=== PATIENT | female | born 1955 | race Caucasian/White ===

== ENCOUNTER 2016-10-30 06:36 | Observation (INO) | payer BC ==
[2016-10-30] MEDS ORDERED: PEPCID 20 MG IV PREMIX* 20 MG/50 ML BAG IV ONE ×2 (07:04→07:14)
[2016-10-30] MEDS ORDERED: ASPIRIN 81 MG CHEWTAB PO ONE (07:05)
--- NOTE | 2016-10-30 07:05 | DR.CP ---
HPI - Time Seen Time seen: 07:00 - PCP Primary Care Physician: SANDRA SORIANO - HPI Comment HPI Comment: HISTORY BELOW. - Complaint Chief Complaint Doctor Comments: CHEST PAIN FEW DAYS. WORSE YESTERDAY. FELL 3 DAYS AGO AND HAVING HEADACHE, RIGHT NECK PAIN AND RIGHT SHOULDER PAIN. PAIN SHARP, PRECORDIAL RADIATing to left arm.. ASSOCIATED WITH WEAKNESS AND NAUSEA. NO FEVER. MILD URI SYMTOMS. Chief Complaint:: PATIENT FAMILY STATED THAT SHE HAS BEEN HAVING CHEST PAIN SINCE YESTERDAY. WOKE UP DURING THE NIGHT. - Reviewed Nurses Notes Review: Yes - Source History Provided: Patient - Mode of Arrival Mode of Arrival: Ambulatory - Timing Onset of Chief Complaint: 10/29/16 Came on: Suddenly - Duration Duration: Constant Duration: Days - Location Location of Chest Pain: Left, Chest Chest Pain Radiation Location: Left Arm - Context Onset: At rest, With light exertion, While Asleep Cardiac Risk Factors: Family History, HTN <ANIRUDH RIZZO - Last Filed: 10/30/16 08:53> PMH - PMH Past Medical History: Yes Past Medical History: COPD, Coronary Artery Disease, Depression, Diabetes, Hypertension, Kidney Stones, Sleep Apnea Past Surgical History: Yes Surgical History: , Cholecystectomy - Family History History of Family Medical Conditions: Yes Family Medical History: Diabetes Mellitus, Cancer, [place], Coronary Artery Disease, Heart Failure, Sudden Cardiac , Hypertension - Social History Does patient currently use any type of tobacco product: No Have you used tobacco products in the last 12 months: No Type of Tobacco Use: None Does any household member use tobacco: No Alcohol Use: None Do you use any recreational Drugs:: No Lives With: Family Lives Where: Home - infectious screening In the last 2 months have you had wt loss of >10#?: NO Have you had fever, night sweats or hemotysis?: No Have you traveled outside the country in the last 6 months?: No Isolation: Standard <ANIRUDH RIZZO - Last Filed: 10/30/16 08:53> ROS - Review of Systems Constitutional: Weakness, Fatigue Eyes: No Symptoms Reported ENTM: No Symptoms Reported Respiratoy: Non-Productive Cough, Short of Breath Cardiovascular: Chest Pain. negative: Edema Gastrointestinal/Abdominal: Nausea, Vomiting Neurological: Headache, Weakness, Dizziness Musculoskeletal: Muscle Pain, Right, Neck, Shoulder Integumentary: No Symptoms Reported Hematologic/Lymphatic: Easy Bruising Endocrine: No Symptoms Reported All Other Systems: Reviewed and Negative <JARED RIZZORADHA - Last Filed: 10/30/16 08:53> PE - General Limitations: No Limitations General Appearance: Alert - Head Head Exam: Normal Inspection - Eyes Eye exam: Normal Appearance - ENT ENT Exam: Normal External Ear Exam - Respiratory Respiratory Exam: Normal Lung Sounds Bilat Respiratory Exam: Bilateral Rhonchi, Upper Rhonchi, Lower Rhonchi - Cardiovascular Cardiovascular Exam: Regular Rate, Normal Rhythm, Normal Heart Sounds Pulse: Normal Edema: Normal - Abdominal Exam Abdominal Exam: Normal Bowel Sounds, Soft. negative: Tenderness - Extremities Extremities Exam: Normal Inspection - Back Back Exam: Vertebral Tenderness (right neck tenderness) - Neurologic Neurological Exam: Alert, Oriented X3 - Psychiatric Psychiatric Exam: Anxious - Skin Skin Exam: Normal Color <JARED RIZZORADHA - Last Filed: 10/30/16 08:53> MDM - Additional Information Additional Information Obtained From: Family - Differential Diagnosis Differential Diagnosis: Chest Wall Pain, CHF, Costochondritis, Esophageal Reflux /Spasm, Gastritis, Myocardial Infarction, Pericarditis, Pancreatitis, Pneumonia , Pneumothorax, Pulmonary Embolus <JARED RIZZORADHA - Last Filed: 10/30/16 08:53> Course - Treatment Treatment: SEE ORDERS - Education/Counseling Education/Counseling: Patient, Family, Education Educated On: Treatment, Diagnosis <JARED RIZZORADHA - Last Filed: 10/30/16 08:53> - Consultation Called: 09:00 (Dr Sheridan obs) <DIVYA JACKSON - Last Filed: 10/30/16 09:20> ROR - Labs Reviewed Result Diagrams: 10/30/16 07:10 10/30/16 07:10 - XRAY XRAY Findings: REPORT DISCUSS WITH PATIENT AND FAMILY - EKG Rhythm: NSR (EKG NOTED) <ANIRUDH RIZZO - Last Filed: 10/30/16 08:53> - Labs Reviewed Result Diagrams: 10/30/16 07:10 10/30/16 07:10 <DIVYA JACKSON - Last Filed: 10/30/16 09:20> - Labs Reviewed Laboratory: WBC 7.0 X10^3/uL (3.6-10.0) 10/30/16 07:10 RBC 3.61 X10^6/uL (3.5-5.4) 10/30/16 07:10 Hgb 11.0 g/dL (12.0-16.0) L 10/30/16 07:10 Hct 33.0 % (36.0-47.0) L 10/30/16 07:10 MCV 91.4 fL (80.0-100.0) 10/30/16 07:10 MCH 30.4 pg (27.0-34.0) 10/30/16 07:10 MCHC 33.2 g/dL (33.0-35.0) 10/30/16 07:10 RDW 12.9 % (11.6-16.5) 10/30/16 07:10 Plt Count 249 X10^3/uL (150.0-450.0) 10/30/16 07:10 MPV 8.1 fL (7.4-11.0) 10/30/16 07:10 Neut % 44.9 % (42.0-75.0) 10/30/16 07:10 Lymph % 43.3 % (21.0-51.0) 10/30/16 07:10 [place] % 9.7 % (0.0-13.0) 10/30/16 07:10 Eos % 1.6 % (0.9-2.9) 10/30/16 07:10 Baso % 0.5 % (0.2-1.0) 10/30/16 07:10 Neut # 3.2 x10^3/uL (2.2-4.8) 10/30/16 07:10 Lymph # 3.0 X10^3/uL (1.3-2.9) H 10/30/16 07:10 [place] # 0.7 x10^3/uL (0.3-0.8) 10/30/16 07:10 Eos # 0.1 x10^3/uL (0.0-0.2) 10/30/16 07:10 Baso # 0.0 X10^3/uL (0.0-0.1) 10/30/16 07:10 Absolute Nucleated RBC 0.0 /100WBC 10/30/16 07:10 INR Target Range - 10/30/16 07:10 INR 0.99 (0.8-1.3) 10/30/16 07:10 PTT 25.4 SECONDS (22.9-36.5) 10/30/16 07:10 PTT Comment - 10/30/16 07:10 D-Dimer 410 ng/mL (0-400) H* 10/30/16 07:10 Sodium 140 mmol/L (136-145) 10/30/16 07:10 Corrected Sodium TNP 10/30/16 07:10 Potassium 4.1 mmol/L (3.5-5.1) 10/30/16 07:10 Chloride 101 mmol/L (98-107) 10/30/16 07:10 Carbon Dioxide 29.4 mmol/L (21-32) 10/30/16 07:10 BUN 28 mg/dL (7-18) H 10/30/16 07:10 Creatinine 1.50 mg/dL (0.55-1.02) H 10/30/16 07:10 Est GFR (MDRD) Af Amer 45 (>60) L 10/30/16 07:10 Est GFR (MDRD) Non-Af 37 (>60) L 10/30/16 07:10 Glucose 97 mg/dL (65-99) 10/30/16 07:10 Calcium 9.1 mg/dL (8.5-10.1) 10/30/16 07:10 Corrected Calcium 9.7 mg/dL (8.5-10.1) 10/30/16 07:10 Magnesium 1.0 mg/dL (1.7-2.9) L 10/30/16 07:10 Total Bilirubin 0.30 mg/dL (0.2-1.0) 10/30/16 07:10 AST 14 Units/L (15-37) L 10/30/16 07:10 ALT 26 Units/L (12-78) 10/30/16 07:10 Alkaline Phosphatase 65 Units/L (46-116) 10/30/16 07:10 Creatine Kinase 55 Units/L (26-192) 10/30/16 07:10 CK-MB (CK-2) < 1.0 ng/mL (0-4.0) 10/30/16 07:10 CK/CKMB % Calc 1.8 % (<4) 10/30/16 07:10 Troponin I < 0.02 ng/mL (0-1.5) 10/30/16 07:10 Total Protein 7.2 g/dL (6.4-8.2) 10/30/16 07:10 Albumin 3.3 g/dL (3.4-5.0) L 10/30/16 07:10 Globulin 3.9 g/dL (2.5-4.5) 10/30/16 07:10 Albumin/Globulin Ratio 0.8 Ratio (1.1-2.1) L 10/30/16 07:10 (DIVYA JACKSON) <ANIRUDH RIZZO - Last Filed: 10/30/16 08:53> <DIVYA JACKSON - Last Filed: 10/30/16 09:20> - Diagnosis Discharge Problem: Chest pain Qualifiers: Chest pain type: chest pain due to myocardial ischemia Ischemic chest pain type : unspecified angina pectoris type Qualified Code(s): I20.9 - Angina pectoris, unspecified - Discharge Plan Condition: Stable - Follow ups/Referrals Follow ups/Referrals: AUGUSTA SORIANO [Primary Care Provider] - 3 days - Instructions
[2016-10-30] MEDS ORDERED: ASPIRIN 81 MG CHEWTAB ONE (07:14)
[2016-10-30] MEDS ORDERED: NS 250 ML IV 250 ML IV ONE (07:15)
[2016-10-30] MEDS: NITROSTAT SL PRN ×3 (07:20→12:06)
[2016-10-30 07:21] LABS: BASOPHILS % (AUTO) 0.5 % (0.2-1.0); EOSINOPHILS # (AUTO) 0.1 x10^3/uL (0.0-0.2); EOSINOPHILS % (AUTO) 1.6 % (0.9-2.9); LYMPHOCYTES % (AUTO) 43.3 % (21.0-51.0); MEAN CORPUSCULAR HEMOGLOBIN 30.4 pg (27.0-34.0); MEAN CORPUSCULAR HGB CONC 33.2 g/dL (33.0-35.0); MEAN CORPUSCULAR VOLUME 91.4 fL (80.0-100.0); MEAN PLATELET VOLUME 8.1 fL (7.4-11.0); MONOCYTES # (AUTO) 0.7 x10^3/uL (0.3-0.8); MONOCYTES % (AUTO) 9.7 % (0.0-13.0); NEUTROPHILS # (AUTO) 3.2 x10^3/uL (2.2-4.8); NEUTROPHILS % (AUTO) 44.9 % (42.0-75.0); PLATELET COUNT 249 X10^3/uL (150.0-450.0); RED BLOOD COUNT 3.61 X10^6/uL (3.5-5.4); RED CELL DISTRIBUTION WIDTH 12.9 % (11.6-16.5)
[2016-10-30 07:38] LABS: BLOOD UREA NITROGEN 28 mg/dL (7-18); CALCIUM 9.1 mg/dL (8.5-10.1); CARBON DIOXIDE 29.4 mmol/L (21-32); CHLORIDE 101 mmol/L (98-107); GLUCOSE 97 mg/dL (65-99); SODIUM 140 mmol/L (136-145); TROPONIN I < 0.02 ng/mL (0-1.5); eGFR BLACK RACES 45 (>60); eGFR NON BLACK RACES 37 (>60)
[2016-10-30 07:42] LABS: ALANINE AMINOTRANSFERASE 26 Units/L (12-78); ALBUMIN 3.3 g/dL (3.4-5.0); ALKALINE PHOSPHATASE 65 Units/L (46-116); ASPARTATE AMINO TRANSFERASE 14 Units/L (15-37); CKMB % 1.8 % (<4); COR CA(FOR HYPOALB) 9.7 mg/dL (8.5-10.1); CREATINE KINASE 55 Units/L (26-192); CREATINE KINASE MB < 1.0 ng/mL (0-4.0); TOTAL PROTEIN 7.2 g/dL (6.4-8.2)
--- NOTE | 2016-10-30 07:45 | CT ---
HISTORY: Head injury, dizziness Study: CT brain without contrast Comparison: September 13, 2016 Technique: Multiple axial images of the brain were obtained from the skull base to the vertex without administr ation of IV contrast. Coronal and sagittal reformats were performed. Dose reduction procedures were used with MA/kv adjusted for body size. Findings: No acute intraparenchymal hemorrhage or mass can be identified. No extra-axial fluid collections ar e seen. No alteration in the attenuation of the brain parenchyma can be identified to suggest acute or subacute ischemic change. The ventricular system is symmetric and nondilated. The extracranial structures are grossly unremarkable. the calvarium is intact. IMPRESSION: No significant intracranial abnormality identified Reported By:
--- NOTE | 2016-10-30 07:46 | RAD ---
HISTORY: Injury, fall, right shoulder pain Study: Right shoulder three view Comparison: None Findings: The appearance of the clavicle and AC joint are unremarkable. The glenohumeral articulation is norm al in its appearance. No acute cortical disruption or dislocation can be identified. The visualize d portions of the scapula are unremarkable. In addition, the visualized portions of the right hemit horax appear normal. IMPRESSION: 1. Negative exam. Reported By:
--- NOTE | 2016-10-30 07:47 | RAD ---
HISTORY: Chest pain. Patient fell 3 days ago, right-sided body pain Study: Single-view chest Comparison: September 13, 2016 Findings: Trachea is midline. The heart size is normal. Lungs and pleural spaces are clear. Osseous structures are intact. IMPRESSION: No acute cardiopulmonary disease. Reported By:
--- NOTE | 2016-10-30 07:48 | RAD ---
HISTORY: Injury, fall, neck pain Study: Cervical spine five view Comparison: None Findings: The prevertebral soft tissues are normal. The alignment is normal. The vertebral bodies are of avera ge height. The disc spaces are preserved. The posterior elements are intact. The neural foramina are patent. The joints are normal. IMPRESSION: No significant abnormality Reported By:
[2016-10-30] MEDS ORDERED: ZOFRAN INJ 4 MG VIAL IVP PRN (09:28)
[2016-10-30 10:24] LABS: CKMB % 1.9 % (<4); CREATINE KINASE 53 Units/L (26-192); CREATINE KINASE MB < 1.0 ng/mL (0-4.0); TROPONIN I < 0.02 ng/mL (0-1.5)
[2016-10-30 10:57] VITALS: BMI 42.5
[2016-10-30 13:29] LABS: CKMB % 1.4 % (<4); CREATINE KINASE 70 Units/L (26-192); TROPONIN I < 0.02 ng/mL (0-1.5)
[2016-10-30] MEDS: MORPHINE SULFATE INJ 2 MG IVP PRN ×2 (13:46→20:32)
--- NOTE | 2016-10-30 14:02 | DR.H&P ---
H&P - History & Physical for Day of: H&P Date: 10/30/16 - Chief Complaint Chief Complaint: cp - Allergies Allergies/Adverse Reactions: Allergies Allergy/AdvReac Type Severity Reaction Status Date / Time Codeine Allergy Unknown Verified 09/13/16 14:34 Iodine Allergy Unknown Verified 09/13/16 14:34 Tetanus Toxoids Allergy Unknown Verified 09/13/16 14:34 [employer] OIL Allergy Uncoded 09/13/16 14:34 - History of Present Illness History of Present Illness: PT WAS ER ADMISSION AFTER PRESENTING WITH CO CHEST PAIN FOR 5 DAYS, WORSE TODAY. PT STATES SHE HAS TAKEN NITROGLYCERINE TABS WITHOUT RELIEF. PT HAD STRONG FAMILY HX CAD. PT HAS HAD HEART CATH IN PAST, ALMOST 7 YEARS AGO. PT STATES SHE SEEN DR [place] AT THAT TIME. PT STATES SHE HAS HX "BLOOD CLOT'S, DM, HTN OA, COPD - Past Medical History Past Medical History: COPD, Coronary Artery Disease, Depression, Diabetes, Hypertension, Kidney Stones, Sleep Apnea Additional Medical History: Fibromyalgia, Degenerative Disc Disease - Past Surgical History Surgical History: , Cholecystectomy - Family History Family Medical History: Diabetes Mellitus, Cancer, [place], Coronary Artery Disease, Heart Failure, Sudden Cardiac , Hypertension - Social History Does patient currently use any type of tobacco product: No Have you used tobacco products in the last 12 months: No Type of Tobacco Use: None Does any household member use tobacco: No Alcohol Use: None - Review of Systems Constitutional: Chills, Weakness Eyes: No Symptoms Reported ENT: No Symptoms Reported Respiratory: No Symptoms Reported Cardiovascular: Chest Pain Gastrointestinal: Nausea Genitourinary: No Symptoms Reported Musculoskeletal: No Symptoms Reported Skin: No Symptoms Reported Neurological: No Symptoms Reported - Physical Exam Vital Signs: Temperature 97.7 F Pulse Rate [Left Brachial] 74 Respiratory Rate 20 Blood Pressure [Left Arm] 137/76 O2 Sat by Pulse Oximetry 100 Oriented: Normal Eyes: Normal Ear: Normal Nose: Normal Throat: Normal Respiratory: RLL Exp. Wheeze, LLL Exp. Wheeze Cardiovascular: Normal : Normal Auscultation: Bowel Sounds: Normal Palpation: Normal Tenderness: Normal Skin: Normal Musculoskeletal: Normal Psychiatric: Normal Speech Pattern: Clear, Appropriate - Assessment/Plan (1) Chest pain Qualifiers: Chest pain type: chest pain due to myocardial ischemia Ischemic chest pain type: unspecified angina pectoris type Qualified Code(s): I20.9 - Angina pectoris, unspecified Status: Acute Plan: ADMIT, HRIS SPECIALIST SERIAL CE'S. SERIAL EKG'S. BP AND LIPID CONTROL (2) Depression Qualifiers: Depression Type: D Major depression recurrence: M Active/Remission status : A Major depression episode severity: M Psychotic features: P Trimester: T Status: Chronic Plan: CONTINUE HOME MEDS (3) Hyperlipidemia Qualifiers: Hyperlipidemia type: Mixed hyperlipidemia Qualified Code(s): E78.2 - Mixed hyperlipidemia Status: Chronic Plan: RESUME HOME MEDS, FLP Q AM (4) Hypertension Qualifiers: Hypertension type: essential hypertension Qualified Code(s): I10 - Essential (primary) hypertension Status: Chronic (5) Insulin dependent diabetes mellitus Status: Chronic Plan: SSI (6) SOB (shortness of breath) Status: Acute Plan: [place], [place] CP AND SOB. CARDIAC WORK UP, VQ LUNG SCAN Q AM
[2016-10-30 14:41] LABS: ABG BASE EXCESS 4.6 mmol/L (-2.0-2.0)
[2016-10-30 14:42] LABS: ABG HCO3 30.4 mmol/L (22-26)
[2016-10-30 14:43] LABS: ABG ALLEN TEST POS
[2016-10-30 19:09] LABS: CKMB % 1.8 % (<4); CREATINE KINASE 56 Units/L (26-192); TROPONIN I < 0.02 ng/mL (0-1.5)
[2016-10-31] MEDS ORDERED: AMBIEN PO PRN (00:33)
[2016-10-31 05:36] LABS: ALBUMIN 3.2 g/dL (3.4-5.0); CALCIUM 9.5 mg/dL (8.5-10.1); CARBON DIOXIDE 31.4 mmol/L (21-32); COR CA(FOR HYPOALB) 10.1 mg/dL (8.5-10.1); CREATININE 1.39 mg/dL (0.55-1.02); TOTAL PROTEIN 7.1 g/dL (6.4-8.2)
[2016-10-31 05:42] LABS: BASOPHILS % (AUTO) 0.5 % (0.2-1.0); EOSINOPHILS # (AUTO) 0.1 x10^3/uL (0.0-0.2); EOSINOPHILS % (AUTO) 1.6 % (0.9-2.9); HEMATOCRIT 34.2 % (36.0-47.0); HEMOGLOBIN 11.2 g/dL (12.0-16.0); LYMPHOCYTES # (AUTO) 1.8 X10^3/uL (1.3-2.9); LYMPHOCYTES % (AUTO) 31.4 % (21.0-51.0); MEAN CORPUSCULAR HEMOGLOBIN 30.3 pg (27.0-34.0); MEAN CORPUSCULAR HGB CONC 32.8 g/dL (33.0-35.0); MEAN CORPUSCULAR VOLUME 92.2 fL (80.0-100.0); MEAN PLATELET VOLUME 8.5 fL (7.4-11.0); MONOCYTES # (AUTO) 0.5 x10^3/uL (0.3-0.8); MONOCYTES % (AUTO) 8.3 % (0.0-13.0); NEUTROPHILS # (AUTO) 3.3 x10^3/uL (2.2-4.8); NEUTROPHILS % (AUTO) 58.2 % (42.0-75.0); PLATELET COUNT 251 X10^3/uL (150.0-450.0); RED BLOOD COUNT 3.71 X10^6/uL (3.5-5.4); WHITE BLOOD COUNT 5.7 X10^3/uL (3.6-10.0)
[2016-10-31] MEDS: MORPHINE SULFATE INJ 2 MG IVP PRN (06:00)
--- NOTE | 2016-10-31 12:33 | NM ---
HISTORY: Chest pain Study: Ventilation-perfusion lung scan Comparison: July 05, 2015 Technique: Ventilation scan was carried out using 25.6 millicuries technetium 90 PA aerosol. Perfusi on scan was carried out using intravenous injection of 5.4 millicuries technetium 99 MAA. Findings: Ventilation scan demonstrated symmetric ventilation without significant ventilation defects. Perfusi on scan demonstrated symmetric profusion without significant perfusion defects. The probability of a cute pulmonary thromboembolic disease is low. IMPRESSION: Low probability acute pulmonary thromboembolic disease Reported By:
[2016-10-31 12:48] VITALS: BP 109/54
== END 2016-10-31 15:45 | disposition home or self-care (01) ==
LOC: ER 06:36 → MED/SURG 09:22
PROVIDERS: ADMIT Internal Medicine; ATTEND Internal Medicine
DX: R07.89 Other chest pain (principal); R51 Headache; D64.89 Other specified anemias; R94.4 Abnormal results of kidney function studies; E11.65 Type 2 diabetes mellitus with hyperglycemia; M54.2 Cervicalgia; M25.511 Pain in right shoulder; R07.2 Precordial pain; J44.9 Chronic obstructive pulmonary disease, unspecified; I25.10 Atherosclerotic heart disease of native coronary artery without angina pectoris; F32.89 Other specified depressive episodes; I10 Essential (primary) hypertension; I20.8 Other forms of angina pectoris; W18.39XA Other fall on same level, initial encounter; E78.2 Mixed hyperlipidemia; Z79.4 Long term (current) use of insulin; R06.02 Shortness of breath; Z79.01 Long term (current) use of anticoagulants
CPT/HCPCS: 36415; 36600; 70450; 71010; 72050; 73030; 78582; 80053; 82550; 82553; 82803; 83735; 84484; 85025; 85378; 85610; 85730; 93005; 93010; 94760; 96365; 96374; 99284; A4222; S0028; G0378; J2270

== ENCOUNTER → 2016-11-01 | Outpatient (CLI) | payer BC ==
[2016-10-31 12:48] VITALS: BP 109/54
--- NOTE | 2016-11-01 23:01 | RAD ---
FOOT RADIOGRAPHS CLINICAL HISTORY: 61-year-old female with history of left toe fracture. COMPARISON: Radiographs the left foot October 11, 2016.. FINDINGS: 3 views of the left foot were obtained. These demonstrate unchanged appearance of fracture s through the base of the 4th proximal phalanx and the mid shaft of the 5th proximal phalanx. The L isfranc interval is maintained. No new fracture. There is no erosion, aggressive bone lesion or a bnormal periosteal reaction. There is no soft tissue calcification or gas. The mineralization is ma intained. IMPRESSION: Unchanged appearance of fractures of the 4th and 5th digits of the left foot without new fracture. Reported By:
== END ==
LOC: RAD 17:06
PROVIDERS: ATTEND Specialist
DX: S92.512D Displaced fracture of proximal phalanx of left lesser toe(s), subsequent encounter for fracture with routine healing (principal); X58.XXXD Exposure to other specified factors, subsequent encounter
CPT/HCPCS: 73630

== ENCOUNTER → 2016-11-29 | Outpatient (CLI) | payer BC ==
[2016-10-31 12:48] VITALS: BP 109/54
--- NOTE | 2016-11-30 06:49 | RAD ---
Three views of the left foot Indication: Followup fracture Comparison: 11/01/2016 Findings: There is no change in appearance of oblique oriented fracture of the proximal phalanx of t he little toe again demonstrating small amount of external callus formation without bridging interna l callus formation. There is also no change in proximally displaced fracture within the medial aspec t of the 4th toe proximal phalangeal base. The remaining left foot demonstrates no new osseous or so ft tissue abnormality. Enthesopathic change at the distal Achilles tendon which is displaced from th e calcaneus consistent with a subacute or remote tear of the Achilles tendon. Mild enthesopathic rusty nge of the plantar fascia. Impression: No radiographic change or interval healing identified within the 4th and 5th proximal ph alangeal fractures. Reported By:
== END ==
LOC: RAD 14:49
PROVIDERS: ATTEND Specialist
DX: S92.512D Displaced fracture of proximal phalanx of left lesser toe(s), subsequent encounter for fracture with routine healing (principal); X58.XXXD Exposure to other specified factors, subsequent encounter
CPT/HCPCS: 73630

== ENCOUNTER 2017-01-28 16:58 | Emergency (ER) | payer BC ==
[2017-01-28 17:11] VITALS: BP 112/75; BMI 42.7
--- NOTE | 2017-01-28 18:11 | DR.GENAD ---
HPI - PCP Primary Care Physician: SANDRA SORIANO CURB HOP - HPI Comment HPI Comment: PAIN GETTING WORSE. NO DYSURIA. CHEST PAIN LEFT CHEST.NO RADIATION TO CHEST PAIN. NO FEVER. PATIENT IS WEAK. - Complaint/Symptoms Chief Complaint Doctors Comments: CHEST PAIN AND FLANK PAIN AND ABDOMINAL PAIN TIMES ONE DAY. Chief Complaint:: PATIENT STATED THAT SHE HAS BEEN HAVING CHEST PAIN AND BACK PAIN. PATIENT STATED THAT YESTERDAY. - Nurses notes reviewed Nurses Notes Review: Yes - Source History Provided: Patient - Mode of Arrival Mode of Arrival: Ambulatory - Timing Onset of Chief Complaint: 01/27/17 Came on: Suddenly - Duration Duration: Constant Duration: Days PMH - PMH Past Medical History: Yes Past Medical History: COPD, Coronary Artery Disease, Depression, Diabetes, Hypertension, Kidney Stones, Sleep Apnea Past Surgical History: Yes Surgical History: , Cholecystectomy, Lithotripsy, Other - Family History History of Family Medical Conditions: Yes Family Medical History: Diabetes Mellitus, Cancer, [place], Hypertension - Social History Does patient currently use any type of tobacco product: No Have you used tobacco products in the last 12 months: No Type of Tobacco Use: None Does any household member use tobacco: No Alcohol Use: None Do you use any recreational Drugs:: No Lives With: Family Lives Where: Home - infectious screening In the last 2 months have you had wt loss of >10#?: NO Have you had fever, night sweats or hemotysis?: No Have you traveled outside the country in the last 6 months?: No Isolation: Standard ROS - Review of Systems Constitutional: Weakness, Fatigue. negative: Chills, Fever Eyes: No Symptoms Reported. negative: Eye Pain, Discharge ENTM: No Symptoms Reported. negative: Ear Pain, Nose Discharge, Nose Congestion , Throat Pain Respiratoy: Non-Productive Cough, Short of Breath. negative: Wheezing, Hemoptysis Cardiovascular: Chest Pain, Palpitations. negative: Edema Gastrointestinal/Abdominal: Abdominal Pain, Nausea. negative: Constipation, Diarrhea, Vomiting Genitourinary: No Symptoms Reported. negative: Dysuria, Frequency, Hematuria Neurological: Headache, Weakness. negative: Dizziness Musculoskeletal: Muscle Pain Integumentary: No Symptoms Reported Hematologic/Lymphatic: Easy Bleeding, Easy Bruising Endocrine: No Symptoms Reported All Other Systems: Reviewed and Negative PE - Vital Signs Vitals: Temperature 98.7 F Pulse Rate 112 Respiratory Rate 20 Blood Pressure [Right Arm] 130/77 Blood Pressure [Left Arm] 109/54 Blood Pressure 112/75 O2 Sat by Pulse Oximetry 98 - General Limitations: No Limitations General Appearance: Alert - Head Head Exam: Normal Inspection - Eyes Eye exam: Normal Appearance - ENT ENT Exam: Normal External Ear Exam External Ear Exam: Normal External Inspection TM/Canal Exam: Bilateral Normal Nose Exam: Normal Nose Exam Mouth Exam: Normal Inspection Throat Exam: Normal Inspection - Neck Neck Exam: Trachea Midline - Chest Chest Inspection: Symmetric Chest Wall Rise - Respiratory Respiratory Exam: Normal Lung Sounds Bilat Respiratory Exam: Bilateral Clear to Auscultation - Cardiovascular Cardiovascular Exam: Normal Rhythm, Tachycardia, Normal Heart Sounds - Abdominal Exam Abdominal Exam: Normal Bowel Sounds, Soft, Tenderness Abdominal Tenderness: Diffuse, Moderate - Extremities Extremities Exam: Normal Inspection - Back Back Exam: Paraspinal Tenderness - Neurologic Neurological Exam: Alert, Oriented X3 - Psychiatric Psychiatric Exam: Normal Affect, Normal Mood - Skin Skin Exam: Normal Color MDM - Additional Information Additional Information Obtained From: Family - Differential Diagnosis Differential Diagnosis: CHEST PAIN, FLANK PAIN, ABDOMINAL PAIN, UTI, KIDNEY STONE Course - Treatment Treatment: SEE ORDERS. IM MED FOR PAIN IN ED. - Reevaluation 1st: Improved - Education/Counseling Education/Counseling: Patient, Family, Education Educated On: Treatment, Diagnosis, Needs for Follow Up ROR - Labs Reviewed Laboratory Results Reviewed?: Yes Result Diagrams: 01/28/17 18:34 01/28/17 18:34 Laboratory: WBC 8.6 X10^3/uL (3.6-10.0) 01/28/17 18:34 RBC 3.83 X10^6/uL (3.5-5.4) 01/28/17 18:34 Hgb 11.6 g/dL (12.0-16.0) L 01/28/17 18:34 Hct 35.1 % (36.0-47.0) L 01/28/17 18:34 MCV 91.6 fL (80.0-100.0) 01/28/17 18:34 MCH 30.2 pg (27.0-34.0) 01/28/17 18:34 MCHC 32.9 g/dL (33.0-35.0) L 01/28/17 18:34 RDW 13.9 % (11.6-16.5) 01/28/17 18:34 Plt Count 309 X10^3/uL (150.0-450.0) 01/28/17 18:34 MPV 8.5 fL (7.4-11.0) 01/28/17 18:34 Neut % 57.2 % (42.0-75.0) 01/28/17 18:34 Lymph % 33.8 % (21.0-51.0) 01/28/17 18:34 [place] % 7.3 % (0.0-13.0) 01/28/17 18:34 Eos % 1.0 % (0.9-2.9) 01/28/17 18:34 Baso % 0.7 % (0.2-1.0) 01/28/17 18:34 Neut # 4.9 x10^3/uL (2.2-4.8) H 01/28/17 18:34 Lymph # 2.9 X10^3/uL (1.3-2.9) 01/28/17 18:34 [place] # 0.6 x10^3/uL (0.3-0.8) 01/28/17 18:34 Eos # 0.1 x10^3/uL (0.0-0.2) 01/28/17 18:34 Baso # 0.1 X10^3/uL (0.0-0.1) 01/28/17 18:34 Absolute Nucleated RBC 0.0 /100WBC 01/28/17 18:34 Sodium 136 mmol/L (136-145) 01/28/17 18:34 Corrected Sodium 137 mmol/L (136-145) 01/28/17 18:34 Potassium 4.6 mmol/L (3.5-5.1) 01/28/17 18:34 Chloride 99 mmol/L (98-107) 01/28/17 18:34 Carbon Dioxide 29.2 mmol/L (21-32) 01/28/17 18:34 BUN 29 mg/dL (7-18) H 01/28/17 18:34 Creatinine 1.95 mg/dL (0.55-1.02) H 01/28/17 18:34 Est GFR (MDRD) Af Amer 33 (>60) L 01/28/17 18:34 Est GFR (MDRD) Non-Af 28 (>60) L 01/28/17 18:34 Glucose 158 mg/dL (65-99) H 01/28/17 18:34 Calcium 9.2 mg/dL (8.5-10.1) 01/28/17 18:34 Corrected Calcium TNP 01/28/17 18:34 Total Bilirubin 0.30 mg/dL (0.2-1.0) 01/28/17 18:34 AST 13 Units/L (15-37) L 01/28/17 18:34 ALT 23 Units/L (12-78) 01/28/17 18:34 Alkaline Phosphatase 70 Units/L (46-116) 01/28/17 18:34 Creatine Kinase 56 Units/L (26-192) 01/28/17 18:34 CK-MB (CK-2) < 1.0 ng/mL (0-4.0) 01/28/17 18:34 CK/CKMB % Calc 1.8 % (<4) 01/28/17 18:34 Troponin I < 0.02 ng/mL (0-1.5) 01/28/17 18:34 Total Protein 7.5 g/dL (6.4-8.2) 01/28/17 18:34 Albumin 3.6 g/dL (3.4-5.0) 01/28/17 18:34 Globulin 3.9 g/dL (2.5-4.5) 01/28/17 18:34 Albumin/Globulin Ratio 0.9 Ratio (1.1-2.1) L 01/28/17 18:34 Specimen Type Clean catch urine 01/28/17 18:17 Urine Color Yellow (YELLOW) 01/28/17 18:17 Urine Appearance Hazy (CLEAR) 01/28/17 18:17 Urine pH 5.0 (5.0 - 8.0) 01/28/17 18:17 Ur Specific [place] 1.020 (1.000-1.030) 01/28/17 18:17 Urine Protein 2+ (NEGATIVE) 01/28/17 18:17 Urine Glucose (UA) 1+ (NEGATIVE) 01/28/17 18:17 Urine Ketones 1+ (NEGATIVE) 01/28/17 18:17 Urine Occult Blood 1+ (NEGATIVE) 01/28/17 18:17 Urine Nitrite Negative (NEGATIVE) 01/28/17 18:17 Urine Bilirubin 2+ (NEGATIVE) 01/28/17 18:17 Urine Urobilinogen 1+ (NORMAL) 01/28/17 18:17 Ur Leukocyte Esterase 2+ (NEGATIVE) 01/28/17 18:17 Urine RBC 3-5 /HPF (NEGATIVE) 01/28/17 18:17 Urine WBC 3-5 /HPF (NEGATIVE) 01/28/17 18:17 Ur Squamous Epith Cells Moderate /HPF (NEGATIVE) 01/28/17 18:17 Urine Bacteria 3+ /HPF (NEGATIVE) 01/28/17 18:17 Ur Culture Indicated? Yes/culture set up 01/28/17 18:17 - XRAY XRAY Interpreted by: Radiologist XRAY Findings: REPORT DISCUSS WITH PATIENT. - EKG Rhythm: ST (RATE 100. EKG NOTED) - Diagnosis Discharge Problem: Kidney stone UTI (urinary tract infection) Qualifiers: Urinary tract infection type: acute cystitis Hematuria presence: without hematuria Qualified Code(s): N30.00 - Acute cystitis without hematuria Chest pain Qualifiers: Chest pain type: precordial pain Qualified Code(s): R07.2 - Precordial pain Abdominal pain Qualifiers: Abdominal location: generalized Qualified Code(s): R10.84 - Generalized abdominal pain - Discharge Plan Disposition: 01 HOME, SELF-CARE Condition: Stable Prescriptions: Ciprofloxacin HCl [CIPRO 500 MG TAB *] 500 mg PO Q12H #20 tab - Follow ups/Referrals Follow ups/Referrals: AUGUSTA SORIANO [Primary Care Provider] - 3 days - Instructions Instructions: Urinary Tract Infection, Kidney Stones, [id number], Chest Pain Observation Additional Instructions: RETURN TO ED IF WORSE.
[2017-01-28 18:25] LABS: BILIRUBIN,URINE 2+ (NEGATIVE); BLOOD/HEMOGLOBIN,URINE 1+ (NEGATIVE); GLUCOSE, URINE 1+ (NEGATIVE); KETONES,URINE 1+ (NEGATIVE); LEUKOCYTE ESTERASE ,URINE 2+ (NEGATIVE); NITRITES,URINE NEGATIVE (NEGATIVE); PROTEIN,URINE 2+ (NEGATIVE); UROBILINOGEN,URINE 1+ (NORMAL)
[2017-01-28 18:43] LABS: APPEARANCE,URINE HAZY (CLEAR); BACTERIA,URINE 3+ /HPF (NEGATIVE); COLOR,URINE YELLOW (YELLOW); SQUAMOUS EPITHELIAL CELL,UR MODERATE /HPF (NEGATIVE)
[2017-01-28 18:50] LABS: BASOPHILS # (AUTO) 0.1 X10^3/uL (0.0-0.1); BASOPHILS % (AUTO) 0.7 % (0.2-1.0); EOSINOPHILS # (AUTO) 0.1 x10^3/uL (0.0-0.2); HEMATOCRIT 35.1 % (36.0-47.0); HEMOGLOBIN 11.6 g/dL (12.0-16.0); LYMPHOCYTES # (AUTO) 2.9 X10^3/uL (1.3-2.9); LYMPHOCYTES % (AUTO) 33.8 % (21.0-51.0); MEAN CORPUSCULAR HEMOGLOBIN 30.2 pg (27.0-34.0); MEAN CORPUSCULAR HGB CONC 32.9 g/dL (33.0-35.0); MEAN CORPUSCULAR VOLUME 91.6 fL (80.0-100.0); MEAN PLATELET VOLUME 8.5 fL (7.4-11.0); MONOCYTES # (AUTO) 0.6 x10^3/uL (0.3-0.8); MONOCYTES % (AUTO) 7.3 % (0.0-13.0); NEUTROPHILS # (AUTO) 4.9 x10^3/uL (2.2-4.8); NEUTROPHILS % (AUTO) 57.2 % (42.0-75.0); PLATELET COUNT 309 X10^3/uL (150.0-450.0); RED BLOOD COUNT 3.83 X10^6/uL (3.5-5.4); RED CELL DISTRIBUTION WIDTH 13.9 % (11.6-16.5); WHITE BLOOD COUNT 8.6 X10^3/uL (3.6-10.0)
[2017-01-28 19:00] LABS: BLOOD UREA NITROGEN 29 mg/dL (7-18); CALCIUM 9.2 mg/dL (8.5-10.1); CARBON DIOXIDE 29.2 mmol/L (21-32); CHLORIDE 99 mmol/L (98-107); COR NA(FOR HYPERGLY) 137 mmol/L (136-145); CREATININE 1.95 mg/dL (0.55-1.02); GLUCOSE 158 mg/dL (65-99); SODIUM 136 mmol/L (136-145); TROPONIN I < 0.02 ng/mL (0-1.5); eGFR BLACK RACES 33 (>60); eGFR NON BLACK RACES 28 (>60)
[2017-01-28 19:04] LABS: ALANINE AMINOTRANSFERASE 23 Units/L (12-78); ALBUMIN 3.6 g/dL (3.4-5.0); ALKALINE PHOSPHATASE 70 Units/L (46-116); ASPARTATE AMINO TRANSFERASE 13 Units/L (15-37); CKMB % 1.8 % (<4); CREATINE KINASE 56 Units/L (26-192); CREATINE KINASE MB < 1.0 ng/mL (0-4.0); TOTAL PROTEIN 7.5 g/dL (6.4-8.2)
[2017-01-28] MEDS ORDERED: TORADOL 60 MG VIAL IM ONE (19:13)
[2017-01-28] MEDS ORDERED: NORFLEX INJ IM ONE (19:13)
[2017-01-28] MEDS ORDERED: NORFLEX INJ ONE (19:16)
[2017-01-28] MEDS ORDERED: TORADOL 60 MG VIAL ONE (19:16)
--- NOTE | 2017-01-28 19:16 | CT ---
HISTORY: Abdominal pain, left flank pain Study: CT abdomen and pelvis without contrast Comparison: 10/12/2014 Technique: Multiple axial images of the abdomen and pelvis were obtained without IV contrast. Dose reduction techniques including Automated Exposure Control (AEC) and adjustment of mA and kV were utilized. Findings: Please note evaluation is limited without use of IV contrast. The visualized lung bases are clear. The liver, spleen, pancreas, kidneys, and adrenal glands are u nremarkable in their unenhanced CT appearance. The gallbladder is removed. There is a single nonobst ructing 2 mm left lower pole renal calculus. The bilateral ureters are normal. No hydronephrosis. No free intraperitoneal air. No evidence of intestinal obstruction or inflammation. Normal appendix. No free fluid identified. The urinary bladder is decompressed. Osseous structures are intact. Bilateral subcutaneous calcifications are seen in the gluteal regions likely related to previous injections. The vascular structures are unremarkable. No pathologically enlarged lymph nodes are identified. IMPRESSION: 1. Single nonobstructing left renal calculus. 2. No acute abnormality identified. Reported By:
--- NOTE | 2017-01-28 19:27 | RAD ---
HISTORY: Chest pain Study: Single view chest Comparison: 10/30/2016 Findings: Single portable view is submitted. The lungs are clear without consolidation, effusion or pneumothor ax. The cardiac and mediastinal contours are within normal limits. The soft tissues are unremarkabl e. IMPRESSION: 1. No acute cardiopulmonary abnormality. Reported By:
[2017-01-28] MEDS ORDERED: CIPRO TAB 500 MG PO ONE ×2 (19:49→19:51)
== END 2017-01-28 20:00 | disposition home or self-care (01) ==
LOC: ER 17:07
DX: R07.2 Precordial pain (principal); N20.0 Calculus of kidney; N30.00 Acute cystitis without hematuria; R10.84 Generalized abdominal pain; R94.31 Abnormal electrocardiogram [ECG] [EKG]
CPT/HCPCS: 36415; 71010; 74176; 80053; 81001; 82550; 82553; 84484; 85025; 87086; 93005; 93010; 96372; 99283; J1885; J2360

== ENCOUNTER 2017-03-21 19:58 | Emergency (ER) | payer BC ==
[2017-03-21 20:07] VITALS: BP 185/89; BMI 40.8
[2017-03-21] MEDS ORDERED: TORADOL 30 MG VIAL ONE (22:06)
[2017-03-21] MEDS ORDERED: ZOFRAN INJ 4 MG VIAL IVP ONE (22:08)
[2017-03-21] MEDS ORDERED: TORADOL 60 MG VIAL IVP ONE (22:08)
[2017-03-21] MEDS ORDERED: NS 500 ML IV 500 ML IV ONE ×2 (22:08→22:15)
--- NOTE | 2017-03-21 22:12 | DR.GENAD ---
HPI - PCP Primary Care Physician: Carla Mortensen - HPI Comment HPI Comment: Pt with h/o kidney stones presents with 4 day h/o [rogressive worsening of her R flank pain that radiates into her thigh. She has had a low grade fever and some nausea and vomiting earlier today. Pain is rated at a 9/10. - Complaint/Symptoms Chief Complaint Doctors Comments: "R side pain" Chief Complaint:: "For about 5-6 days now I have been having a lot of pain on my right side and down to my groin. I have also been having some chest pain but I am supposed to see a line tender next month. I don't know if I can wait that long or not though. I am not sure if the pain is related. The pain in my side is gettin unbearable though." Self Treatment fo Chief Complaint: 1 tramadol - states it did not help. - Nurses notes reviewed Nurses Notes Review: Yes - Source History Provided: Patient, Significant Other - Mode of Arrival Mode of Arrival: Ambulatory - Timing Onset of Chief Complaint: 03/15/17 Came on: Gradually - Duration Duration: Since Onset How lon Duration: Days - Severity Severity: Moderate - Associated Signs and Symptoms Associated Signs and Symptoms: fever, nausea and vomiting PMH - PMH Past Medical History: Yes Past Medical History: COPD, Coronary Artery Disease, Depression, Diabetes, Hypertension, Kidney Stones, Sleep Apnea Past Surgical History: Yes Surgical History: , Cholecystectomy, Lithotripsy, Other Past Surgical History Comment: Heart cath multiple times - Family History History of Family Medical Conditions: Yes Family Medical History: Diabetes Mellitus, Cancer, [place], Hypertension - Social History Does patient currently use any type of tobacco product: No Have you used tobacco products in the last 12 months: No Type of Tobacco Use: None Does any household member use tobacco: No Alcohol Use: None Do you use any recreational Drugs:: No Lives With: Spouse Lives Where: Home - infectious screening In the last 2 months have you had wt loss of >10#?: NO Have you had fever, night sweats or hemotysis?: No Have you traveled outside the country in the last 6 months?: No Isolation: Standard ROS - Review of Systems Constitutional: No Symptoms Reported Respiratoy: No Symptoms Reported Cardiovascular: See HPI Gastrointestinal/Abdominal: Nausea, Vomiting Genitourinary: Hematuria, Pain Neurological: No Symptoms Reported Musculoskeletal: See HPI, Back Pain, Right Integumentary: No Symptoms Reported Hematologic/Lymphatic: No Symptoms Reported Endocrine: No Symptoms Reported Psychiatric: No Symptoms Reported All Other Systems: Reviewed and Negative PE - Vital Signs Vitals: Temperature 99.5 F Pulse Rate 120 Respiratory Rate 15 Blood Pressure [Right Arm] 130/77 Blood Pressure [Left Arm] 109/54 Blood Pressure 185/89 O2 Sat by Pulse Oximetry 95 - General Limitations: No Limitations General Appearance: Alert, In Distress - Chest Chest Inspection: Normal Inspection, Symmetric Chest Wall Rise - Respiratory Respiratory Exam: Normal Lung Sounds Bilat Respiratory Exam: Bilateral Clear to Auscultation - Cardiovascular Cardiovascular Exam: Regular Rate, Normal Rhythm, Normal Heart Sounds - Abdominal Exam Abdominal Exam: Normal Bowel Sounds, Soft - Extremities Extremities Exam: Normal Inspection - Back Back Exam: (R) CVA Tenderness - Neurologic Neurological Exam: Alert, Oriented X3, CN II-XII Intact - Psychiatric Psychiatric Exam: Normal Affect, Normal Mood, Agitated - Skin Skin Exam: Warm, Dry, Intact MDM - Differential Diagnosis Differential Diagnosis: UTI, Kidney stones, colitis ROR - Labs Reviewed Result Diagrams: 03/21/17 22:21 03/21/17 22:21 Laboratory: WBC 10.2 X10^3/uL (3.6-10.0) H 03/21/17 22:21 RBC 3.46 X10^6/uL (3.5-5.4) L 03/21/17 22:21 Hgb 10.6 g/dL (12.0-16.0) L 03/21/17 22:21 Hct 31.3 % (36.0-47.0) L 03/21/17 22:21 MCV 90.3 fL (80.0-100.0) 03/21/17 22:21 MCH 30.6 pg (27.0-34.0) 03/21/17 22:21 MCHC 33.9 g/dL (33.0-35.0) 03/21/17 22:21 RDW 13.7 % (11.6-16.5) 03/21/17 22:21 Plt Count 251 X10^3/uL (150.0-450.0) 03/21/17 22:21 MPV 7.9 fL (7.4-11.0) 03/21/17 22:21 Neut % 77.6 % (42.0-75.0) H 03/21/17 22:21 Lymph % 14.6 % (21.0-51.0) L 03/21/17 22:21 [place] % 6.7 % (0.0-13.0) 03/21/17 22:21 Eos % 0.4 % (0.9-2.9) L 03/21/17 22:21 Baso % 0.7 % (0.2-1.0) 03/21/17 22:21 Neut # 7.9 x10^3/uL (2.2-4.8) H 03/21/17 22:21 Lymph # 1.5 X10^3/uL (1.3-2.9) 03/21/17 22:21 [place] # 0.7 x10^3/uL (0.3-0.8) 03/21/17 22:21 Eos # 0.0 x10^3/uL (0.0-0.2) 03/21/17 22:21 Baso # 0.1 X10^3/uL (0.0-0.1) 03/21/17 22:21 Absolute Nucleated RBC 0.0 /100WBC 03/21/17 22:21 Sodium 132 mmol/L (136-145) L 03/21/17 22:21 Corrected Sodium 135 mmol/L (136-145) L 03/21/17 22:21 Potassium 4.3 mmol/L (3.5-5.1) 03/21/17 22:21 Chloride 97 mmol/L (98-107) L 03/21/17 22:21 Carbon Dioxide 30.6 mmol/L (21-32) 03/21/17 22:21 BUN 31 mg/dL (7-18) H 03/21/17 22:21 Creatinine 1.42 mg/dL (0.55-1.02) H 03/21/17 22:21 Est GFR (MDRD) Af Amer 48 (>60) L 03/21/17 22:21 Est GFR (MDRD) Non-Af 40 (>60) L 03/21/17 22:21 Glucose 209 mg/dL (65-99) H 03/21/17 22:21 Calcium 8.8 mg/dL (8.5-10.1) 03/21/17 22:21 Corrected Calcium 9.5 mg/dL (8.5-10.1) 03/21/17 22:21 Total Bilirubin 0.30 mg/dL (0.2-1.0) 03/21/17 22:21 AST 12 Units/L (15-37) L 03/21/17 22:21 ALT 18 Units/L (12-78) 03/21/17 22:21 Alkaline Phosphatase 58 Units/L (46-116) 03/21/17 22:21 Total Protein 6.7 g/dL (6.4-8.2) 03/21/17 22:21 Albumin 3.1 g/dL (3.4-5.0) L 03/21/17 22:21 Globulin 3.6 g/dL (2.5-4.5) 03/21/17 22:21 Albumin/Globulin Ratio 0.9 Ratio (1.1-2.1) L 03/21/17 22:21 Specimen Type Catherized urine 03/21/17 22:51 Urine Color [place]y (YELLOW) 03/21/17 22:51 Urine Appearance Clear (CLEAR) 03/21/17 22:51 Urine pH Cancelled 03/21/17 22:47 Ur Specific [place] Cancelled 03/21/17 22:47 Urine Protein Cancelled 03/21/17 22:47 Urine Glucose (UA) Cancelled 03/21/17 22:47 Urine Ketones Cancelled 03/21/17 22:47 Urine Occult Blood Cancelled 03/21/17 22:47 Urine Nitrite Cancelled 03/21/17 22:47 Urine Bilirubin Cancelled 03/21/17 22:47 Urine Urobilinogen Cancelled 03/21/17 22:47 Ur Leukocyte Esterase Cancelled 03/21/17 22:47 Urine RBC 0-3 /HPF (NEGATIVE) 03/21/17 22:51 Urine WBC 0-3 /HPF (NEGATIVE) 03/21/17 22:51 Ur Squamous Epith Cells Rare /HPF (NEGATIVE) 03/21/17 22:51 Ur Transition Epith Cell Cancelled 03/21/17 22:47 Ur Renal Epithelial Cell Cancelled 03/21/17 22:47 Calcium Oxalate Crystal Cancelled 03/21/17 22:47 Cystine Crystals Cancelled 03/21/17 22:47 Uric Acid Crystals Cancelled 03/21/17 22:47 Triple Phos Crystals Cancelled 03/21/17 22:47 Tyrosine Crystals Cancelled 03/21/17 22:47 Other Crystals Cancelled 03/21/17 22:47 Amorphous Sediment Cancelled 03/21/17 22:47 Urine Bacteria Negative /HPF (Negative) 03/21/17 22:51 Hyaline Casts Cancelled 03/21/17 22:47 Granular Casts Cancelled 03/21/17 22:47 Fine Granular Casts Cancelled 03/21/17 22:47 Coarse Granular Casts Cancelled 03/21/17 22:47 WBC Casts Cancelled 03/21/17 22:47 Other Casts Cancelled 03/21/17 22:47 Urine Mucus Cancelled 03/21/17 22:47 Urine Trichomonas Cancelled 03/21/17 22:47 Urine Yeast Cancelled 03/21/17 22:47 Urine Sperm Cancelled 03/21/17 22:47 Ur Culture Indicated? No/not indicated 03/21/17 22:51 Micro UA Comment Unable to perform (-) 03/21/17 22:51 - Diagnosis Discharge Problem: Colitis, Left nephrolithiasis, Degenerative disc disease, cervical - Discharge Plan Disposition: 01 HOME, SELF-CARE Condition: Stable Prescriptions: Ampicillin Trihydrate 500 mg PO QID #28 capsule - Follow ups/Referrals Follow ups/Referrals: AUGUSTA MORTENSEN [Primary Care Provider] - 3 days - Instructions Instructions: Chronic Diarrhea, Colitis
[2017-03-21] MEDS ORDERED: ZOFRAN INJ 4 MG VIAL ONE (22:15)
[2017-03-21 22:34] LABS: BASOPHILS # (AUTO) 0.1 X10^3/uL (0.0-0.1); BASOPHILS % (AUTO) 0.7 % (0.2-1.0); EOSINOPHILS % (AUTO) 0.4 % (0.9-2.9); HEMATOCRIT 31.3 % (36.0-47.0); HEMOGLOBIN 10.6 g/dL (12.0-16.0); LYMPHOCYTES # (AUTO) 1.5 X10^3/uL (1.3-2.9); LYMPHOCYTES % (AUTO) 14.6 % (21.0-51.0); MEAN CORPUSCULAR HEMOGLOBIN 30.6 pg (27.0-34.0); MEAN CORPUSCULAR HGB CONC 33.9 g/dL (33.0-35.0); MEAN CORPUSCULAR VOLUME 90.3 fL (80.0-100.0); MEAN PLATELET VOLUME 7.9 fL (7.4-11.0); MONOCYTES # (AUTO) 0.7 x10^3/uL (0.3-0.8); MONOCYTES % (AUTO) 6.7 % (0.0-13.0); NEUTROPHILS # (AUTO) 7.9 x10^3/uL (2.2-4.8); NEUTROPHILS % (AUTO) 77.6 % (42.0-75.0); PLATELET COUNT 251 X10^3/uL (150.0-450.0); RED BLOOD COUNT 3.46 X10^6/uL (3.5-5.4); RED CELL DISTRIBUTION WIDTH 13.7 % (11.6-16.5); WHITE BLOOD COUNT 10.2 X10^3/uL (3.6-10.0)
[2017-03-21 22:50] LABS: ALBUMIN 3.1 g/dL (3.4-5.0); CALCIUM 8.8 mg/dL (8.5-10.1); CARBON DIOXIDE 30.6 mmol/L (21-32); COR CA(FOR HYPOALB) 9.5 mg/dL (8.5-10.1); CREATININE 1.42 mg/dL (0.55-1.02); TOTAL PROTEIN 6.7 g/dL (6.4-8.2)
[2017-03-21 23:14] LABS: APPEARANCE,URINE CLEAR (CLEAR); BACTERIA,URINE Negative /HPF (Negative); COLOR,URINE AMBER (YELLOW); RBC,URINE 0-3 /HPF (NEGATIVE); SQUAMOUS EPITHELIAL CELL,UR RARE /HPF (NEGATIVE)
--- NOTE | 2017-03-21 23:17 | CT ---
CT abdomen and pelvis without contrast Indication: Right flank pain, back pain. Comparison: 01/28/2017 Technique: CT images of the abdomen and pelvis were obtained without contrast. Automatic exposure co ntrol was utilized. Findings: No acute skeletal abnormality. The lung bases are clear. The gallbladder is surgically absent. Within the limitations of a noncontrast study, the liver, sple en, stomach, duodenum, pancreas, and adrenals are unremarkable. There is a stable 2 mm left lower po le collecting system calculus. No right-sided nephrolithiasis. There is no hydronephrosis of either kidney. No ureteral stones identified. No significant bowel thickening or dilatation of the lower GI tract. The uterus and ovaries are noted. The urinary bladder and rectum are unremarkable. No free f luid or adenopathy identified. Impression: No etiology for patient's symptoms identified. Stable nonobstructing left lower pole 2 mm stone. Reported By:
[2017-03-21] MEDS ORDERED: CIPRO IV 400 MG PREMIX* 400 MG/200 ML IV.SOLN. IV ONE ×2 (23:43)
[2017-03-21] MEDS ORDERED: MORPHINE SULFATE INJ 4 MG IVP ONE (23:46)
[2017-03-21] MEDS ORDERED: MORPHINE SULFATE INJ 2 MG ONE (23:47)
== END 2017-03-22 01:00 | disposition home or self-care (01) ==
LOC: ER 20:10
DX: K52.89 Other specified noninfective gastroenteritis and colitis (principal); N20.0 Calculus of kidney; M50.30 Other cervical disc degeneration, unspecified cervical region
CPT/HCPCS: 36415; 74176; 80053; 81015; 85025; 96365; 96374; 96375; 99283; A4222; J0744; J1885; J2270; J2405

== ENCOUNTER → 2017-06-05 | Outpatient (CLI) | payer BC ==
--- NOTE | 2017-06-05 12:46 | US ---
HISTORY: Bilateral axillary nodules Study: Bilateral axillary ultrasound: Multiplanar ultrasonographic examination of both axillary reg ions was performed using color, grayscale and pulsed Doppler imaging Comparison: None Findings: Right axilla on these images there are scattered nodules present felt to represent benign-appearing l ymph nodes. They have large fatty del. These range in size up to approximately 11.5 mm. Left axilla: There scattered lymph nodes present within the left axilla. They measure approximately 11.4 mm in maximum dimension. There is a subcutaneous nodule in the area where patient reports a ri b bump. This appear to be confined to the subcutaneous tissue and may represent a small complex seba ceous cyst. There is slightly hyperechoic. It measures 7.2 mm in maximum dimension. IMPRESSION: 1. There are scattered benign appearing lymph nodes in both axilla. 2. There is a small subcutaneous focal area of hyper echogenicity on the left, possibly a developing sebaceous cyst. Reported By:
--- NOTE | 2017-06-07 13:04 | MG ---
HISTORY: SCREENING Comparison: 07/28/2014 FINDINGS: Bilateral CC and MLO projections of the right and left breast were obtained. Scattered fibroglandula r tissue is seen to be present. No significant architectural distortion, mass or clustered microcalc ifications can be observed to suggest malignancy. No skin thickening or nipple retraction is appreci ated. No pathological lymphadenopathy can be identified. IMPRESSION: NO RADIOGRAPHIC EVIDENCE OF MALIGNANCY. ACR CATEGORY I - NEGATIVE EXAM. FOLLOW-UP EXAM 1 YEAR. Diagnostic CAD was utilized and reviewed. * 0 (ZERO) - ASSESSMENT INCOMPLETE; ADDITIONAL IMAGING IS NEEDED. * 1/ (ONE) - NEGATIVE. * 2/II (TWO) - BENIGN FINDINGS. * 3/III (THREE) - PROBABLY BENIGN FINDING; SHORT INTERVAL FOLLOW-UP SUGGESTED. * 4/IV (FOUR) - SUSPICIOUS ABNORMALITY; BIOPSY SHOULD BE CONSIDERED. * 5/V - HIGHLY SUSPICIOUS OF MALIGNANCY; BIOPSY SHOULD BE PERFORMED. A NEGATIVE X-RAY REPORT SHOULD NOT DELAY BIOPSY IF A DOMINANT OR CLINICALLY SUSPICIOUS MASS IS PRESENT; 4 TO 8 PERCENT OF CANCERS ARE NOT IDENTIFIED BY X-RAY. A NEGA TIVE REPORT MAY REINFORCE THE CLINICAL IMPRESSION. ADENOSIS AND DENSE BREASTS MAY OBSCURE AN UNDERLY ING NEOPLASM. Reported By:
== END | disposition home or self-care (01) | DRG 951 ==
LOC: RAD 10:56
PROVIDERS: ATTEND Nurse Practitioner Family
DX: Z12.31 Encounter for screening mammogram for malignant neoplasm of breast (principal); R22.2 Localized swelling, mass and lump, trunk
CPT/HCPCS: 76882; 77067

== ENCOUNTER → 2017-06-06 | Outpatient (CLI) | payer BC ==
[2017-06-06 12:42] LABS: BASOPHILS # (AUTO) 0.1 X10^3/uL (0.0-0.1); BASOPHILS % (AUTO) 0.7 % (0.2-1.0); EOSINOPHILS # (AUTO) 0.1 x10^3/uL (0.0-0.2); EOSINOPHILS % (AUTO) 1.3 % (0.9-2.9); HEMOGLOBIN 11.6 g/dL (12.0-16.0); LYMPHOCYTES # (AUTO) 2.3 X10^3/uL (1.3-2.9); LYMPHOCYTES % (AUTO) 28.2 % (21.0-51.0); MEAN CORPUSCULAR HEMOGLOBIN 30.2 pg (27.0-34.0); MEAN CORPUSCULAR HGB CONC 33.2 g/dL (33.0-35.0); MEAN PLATELET VOLUME 8.6 fL (7.4-11.0); MONOCYTES # (AUTO) 0.6 x10^3/uL (0.3-0.8); MONOCYTES % (AUTO) 7.1 % (0.0-13.0); NEUTROPHILS # (AUTO) 5.2 x10^3/uL (2.2-4.8); NEUTROPHILS % (AUTO) 62.7 % (42.0-75.0); PLATELET COUNT 280 X10^3/uL (150.0-450.0); RED BLOOD COUNT 3.85 X10^6/uL (3.5-5.4); RED CELL DISTRIBUTION WIDTH 14.2 % (11.6-16.5); WHITE BLOOD COUNT 8.2 X10^3/uL (3.6-10.0)
[2017-06-06 13:15] LABS: CALCIUM 9.5 mg/dL (8.5-10.1); CARBON DIOXIDE 30.1 mmol/L (21-32); CREATININE 1.76 mg/dL (0.55-1.02)
== END ==
LOC: LAB 12:04
PROVIDERS: ATTEND Internal Medicine Cardiovascular Disease
DX: R07.89 Other chest pain (principal)
CPT/HCPCS: 36415; 80048; 85025

== ENCOUNTER 2017-06-23 16:24 | Emergency (ER) | payer BC ==
[2017-06-23 16:30] VITALS: BP 150/84; BMI 41.3
[2017-06-23] MEDS ORDERED: TORADOL 60 MG VIAL IM ONE (17:01)
[2017-06-23] MEDS ORDERED: TORADOL 60 MG VIAL ONE (17:06)
--- NOTE | 2017-06-23 17:13 | DR.GENAD ---
HPI - PCP Primary Care Physician: lico - Complaint/Symptoms Chief Complaint Doctors Comments: Patient twisted her left lower exxtremity on yesterday, she thought it would be all right today. Today admits to pain left lower extremity, severity 10/10,sharp,worse with weight bearing. Chief Complaint:: patient stated she was in her kitchen yesterday and twisted her left knee causing left hip, left knee and left lower leg pain - Source History Provided: Patient - Mode of Arrival Mode of Arrival: Ambulatory - Timing Onset of Chief Complaint: 06/22/17 PMH - PMH Past Medical History: Yes Past Medical History: COPD, Coronary Artery Disease, Depression, Diabetes, Hypertension, Kidney Stones, Sleep Apnea Past Surgical History: Yes Surgical History: , Cholecystectomy, Lithotripsy, Other - Family History History of Family Medical Conditions: Yes Family Medical History: Diabetes Mellitus, Cancer, [place], Hypertension - Social History Does patient currently use any type of tobacco product: No Have you used tobacco products in the last 12 months: No Type of Tobacco Use: None Does any household member use tobacco: No Alcohol Use: None Do you use any recreational Drugs:: No Lives With: Family Lives Where: Home - infectious screening In the last 2 months have you had wt loss of >10#?: YES Have you had fever, night sweats or hemotysis?: Yes Have you traveled outside the country in the last 6 months?: No Isolation: Standard ROS - Review of Systems Eyes: No Symptoms Reported ENTM: No Symptoms Reported, Hearing Loss Cardiovascular: No Symptoms Reported Gastrointestinal/Abdominal: No Symptoms Reported Genitourinary: No Symptoms Reported Neurological: No Symptoms Reported Musculoskeletal: Left, Hip, Leg (pain), Knee, Ankle Integumentary: No Symptoms Reported Hematologic/Lymphatic: No Symptoms Reported Endocrine: No Symptoms Reported Psychiatric: No Symptoms Reported All Other Systems: Reviewed and Negative PE - Vital Signs Vitals: Temperature 98.9 F Pulse Rate 105 Respiratory Rate 16 Blood Pressure [Right Arm] 130/77 Blood Pressure [Left Arm] 109/54 Blood Pressure 150/84 O2 Sat by Pulse Oximetry 98 - General General Appearance: Alert, In No Apparent Distress - Head Head Exam: Normal Inspection, Atraumatic - Eyes Eye exam: Normal Appearance, PERRL, EOMI - ENT ENT Exam: Normal Exam External Ear Exam: Normal External Inspection TM/Canal Exam: Bilateral Normal Nose Exam: Normal Nose Exam Mouth Exam: Normal Inspection Throat Exam: Normal Inspection - Neck Neck Exam: Normal Inspection, Full ROM - Chest Chest Inspection: Normal Inspection - Respiratory Respiratory Exam: Normal Lung Sounds Bilat Respiratory Exam: Bilateral Clear to Auscultation - Cardiovascular Cardiovascular Exam: Regular Rate, Normal Rhythm - Abdominal Exam Abdominal Exam: Normal Inspection, Normal Bowel Sounds Abdominal Tenderness: negative: RUQ, RLQ, LUQ, LLQ, Epigastrium, Suprapubic, Diffuse, Mild, Moderate, Severe, Other - Extremities Extremities Exam: Normal Inspection, Tenderness (of left lower extremity to touch;movement) - Back Back Exam: Normal Inspection - Neurologic Neurological Exam: Alert, Oriented X3, CN II-XII Intact - Psychiatric Psychiatric Exam: Normal Affect, Normal Mood Course - Treatment Treatment: Toradol 60mg IM - Reevaluation 1st: Improved ROR - XRAY XRAY Interpreted by: Radiologist (Pelvis: No acute fracture or malalignment. The femoral heads are round and are well seated within the acetabula. The visualized joint spaces are maintained. There is no symphyseal or sacroiliac diastasis. The mineralization is maintained. There is no agressive bone lesion or abnormal periosteal reaction. There is no soft tissue calcification or gas. Tibia/Fibul:Frontal and lateral views of the left tibia and fibula were obtained. These demonstrate no acute fracture or malalignment. The ankle and knee articulations are congruent on provided views. Degenerative changes are noted about the iknee. The mineralization is maintained. There is no agrressive bone lesion or abnormal periosteal reaction. The is no radiopaque foreign body, soft tissue calcification or gas. Impression: Degenerative changes about the knee without fracture or malalignment of the tibia or fibula.) - Diagnosis Discharge Problem: Degenerative arthritis of left knee Qualifiers: Osteoarthritis type: primary Qualified Code(s): M17.12 - Unilateral primary osteoarthritis, left knee - Discharge Plan Condition: Stable - Follow ups/Referrals Follow ups/Referrals: MEIR FARRIS [Primary Care Provider] - 3 days - Instructions
--- NOTE | 2017-06-23 17:44 | RAD ---
[facility] RADIOGRAPHS CLINICAL HISTORY: 62-year-old female twisted her leg with left lower extremity pain. COMPARISON: None. FINDINGS: Frontal and lateral views of the left tibia and fibula were obtained. These demonstrate no acute fracture or malalignment. The ankle and knee articulations are congruent on provided views. Deg enerative changes are noted about the knee. The mineralization is maintained. There is no aggressive bone lesion or abnormal periosteal reaction. There is no radiopaque foreign body, soft tissue calci fication or gas. IMPRESSION: Degenerative changes about the knee without fracture or malalignment of the tibia or fibula. Reported By:
--- NOTE | 2017-06-23 17:44 | RAD ---
[facility] RADIOGRAPHS CLINICAL HISTORY: 62-year-old female status post twisting her left knee with left lower extremity conrado n. COMPARISON: None. FINDINGS: AP view of the pelvis was obtained. This demonstrates no acute fracture or malalignment. T he femoral heads are round and are well seated within the acetabula. The visualized joint spaces are maintained. There is no symphyseal or sacroiliac diastasis. The mineralization is maintained. The re is no aggressive bone lesion or abnormal periosteal reaction. There is no soft tissue calcificati on or gas. Multiple pelvic phleboliths. IMPRESSION: No acute fracture or osseous abnormality about the pelvis. Reported By:
== END 2017-06-23 18:17 | disposition home or self-care (01) ==
LOC: ER 16:24
DX: M17.12 Unilateral primary osteoarthritis, left knee (principal)
CPT/HCPCS: 72170; 73590; 96372; 99282; J1885

== ENCOUNTER 2017-07-08 22:58 | Emergency (ER) | payer BC ==
[2017-07-08 23:09] VITALS: BMI 41.2
--- NOTE | 2017-07-08 23:55 | DR.GENAD ---
HPI - PCP Primary Care Physician: BO - HPI Comment HPI Comment: GETTING WORSE. PAIN NOW GOING INTO LEFT LOWER ABDOMEN. HISTORY KIDNEY STONE. PAIN IS INTERFERING WITH PATIENT RESTING OR GOING TO SLEEP. NO FEVER. - Complaint/Symptoms Chief Complaint Doctors Comments: LEFT FLANK PAIN WITH NAUSEA TIMES ONE DAY. Chief Complaint:: PT SEEING DR GOTTIRONKathy FOR HER KIDNEY PROBLEM PT C/O LT FLANK PAIN - Nurses notes reviewed Nurses Notes Review: Yes - Source History Provided: Patient - Mode of Arrival Mode of Arrival: Ambulatory - Timing Onset of Chief Complaint: 07/07/17 Came on: Suddenly - Duration Duration: Constant Duration: Days - Severity Severity: Moderate PMH - PMH Past Medical History: Yes Past Medical History: COPD, Coronary Artery Disease, Depression, Diabetes, Hypertension, Kidney Stones, Sleep Apnea Past Surgical History: Yes Surgical History: Angioplasty/Stents, , Cholecystectomy, Lithotripsy, Other - Family History History of Family Medical Conditions: Yes Family Medical History: Diabetes Mellitus, Cancer, [place], Hypertension - Social History Does any household member use tobacco: No Do you use any recreational Drugs:: No Lives With: Family Lives Where: Home - infectious screening In the last 2 months have you had wt loss of >10#?: NO Have you had fever, night sweats or hemotysis?: No Have you traveled outside the country in the last 6 months?: No Isolation: Standard ROS - Review of Systems Constitutional: Weakness, Fatigue. negative: Chills, Fever Eyes: No Symptoms Reported. negative: Eye Pain, Discharge ENTM: negative: Ear Pain, Nose Discharge, Nose Congestion, Throat Pain Respiratoy: No Symptoms Reported, Short of Breath (ON EXERTION ). negative: Productive Cough, Non-Productive Cough, Wheezing, Hemoptysis Cardiovascular: Edema (TRACE). negative: Chest Pain Gastrointestinal/Abdominal: Abdominal Pain, Nausea Genitourinary: negative: Dysuria, Frequency, Hematuria Neurological: Weakness Musculoskeletal: Back Pain (LT FLANK PAIN), Muscle Pain Integumentary: No Symptoms Reported Hematologic/Lymphatic: No Symptoms Reported Endocrine: No Symptoms Reported All Other Systems: Reviewed and Negative PE - Vital Signs Vitals: Temperature 98.1 F Pulse Rate [Right] 74 Pulse Rate 77 Respiratory Rate 16 Blood Pressure [Right Arm] 130/77 Blood Pressure [Left Arm] 139/69 Blood Pressure 144/75 O2 Sat by Pulse Oximetry 99 - General Limitations: No Limitations General Appearance: Alert - Head Head Exam: Normal Inspection - Eyes Eye exam: Normal Appearance - ENT ENT Exam: Normal External Ear Exam External Ear Exam: Normal External Inspection TM/Canal Exam: Bilateral Normal Nose Exam: Normal Nose Exam Mouth Exam: Normal Inspection Throat Exam: Normal Inspection - Neck Neck Exam: Trachea Midline - Chest Chest Inspection: Symmetric Chest Wall Rise - Respiratory Respiratory Exam: Normal Lung Sounds Bilat Respiratory Exam: Bilateral Rhonchi, Lower Rhonchi - Cardiovascular Cardiovascular Exam: Regular Rate, Normal Rhythm, Normal Heart Sounds - Abdominal Exam Abdominal Exam: Normal Bowel Sounds, Soft, Tenderness Abdominal Tenderness: LLQ, Moderate - Extremities Extremities Exam: Edema (TRACE) - Back Back Exam: (L) CVA Tenderness, Paraspinal Tenderness - Neurologic Neurological Exam: Alert, Oriented X3 - Psychiatric Psychiatric Exam: Anxious - Skin Skin Exam: Erythema MDM - Additional Information Additional Information Obtained From: Family - Differential Diagnosis Differential Diagnosis: LT FLANK PAIN, KIDNEY STONE, UTI, PYELONEPHRITIS Course - Treatment Treatment: SEE ORDERS. IM MEDS FOR PAIN IN ED. - Education/Counseling Education/Counseling: Patient, Family, Education Educated On: Treatment, Diagnosis, Needs for Follow Up ROR - Labs Reviewed Laboratory Results Reviewed?: Yes Laboratory: Specimen Type Clean catch urine 07/08/17 23:18 Urine Color Yellow (YELLOW) 07/08/17 23:18 Urine Appearance Slightly hazy (CLEAR) 07/08/17 23:18 Urine pH 5.0 (5.0 - 8.0) 07/08/17 23:18 Ur Specific [place] 1.015 (1.000-1.030) 07/08/17 23:18 Urine Protein Negative (NEGATIVE) 07/08/17 23:18 Urine Glucose (UA) 1+ (NEGATIVE) 07/08/17 23:18 Urine Ketones Negative (NEGATIVE) 07/08/17 23:18 Urine Occult Blood Negative (NEGATIVE) 07/08/17 23:18 Urine Nitrite Negative (NEGATIVE) 07/08/17 23:18 Urine Bilirubin Negative (NEGATIVE) 07/08/17 23:18 Urine Urobilinogen Normal (NORMAL) 07/08/17 23:18 Ur Leukocyte Esterase Negative (NEGATIVE) 07/08/17 23:18 Urine RBC 0-3 /HPF (NEGATIVE) 07/08/17 23:18 Urine WBC 0-3 /HPF (NEGATIVE) 07/08/17 23:18 Ur Squamous Epith Cells Moderate /HPF (NEGATIVE) 07/08/17 23:18 Urine Bacteria Negative /HPF (NEGATIVE) 07/08/17 23:18 Ur Culture Indicated? No/not indicated 07/08/17 23:18 - XRAY XRAY Interpreted by: Radiologist XRAY Findings: REPORT DISCUSS WITH PATIENT. - Diagnosis Discharge Problem: Left flank pain Back pain Qualifiers: Back pain location: low back pain Chronicity: chronic Back pain laterality: bilateral Sciatica presence: without sciatica Qualified Code(s): M54.5 - Low back pain; G89.29 - Other chronic pain; G89.29 - Other chronic pain - Discharge Plan Disposition: 01 HOME, SELF-CARE Condition: Stable - Follow ups/Referrals Follow ups/Referrals: NFD,None [Primary Care Provider] - 3 days - Instructions Instructions: Back Pain, Adult, [id number] Additional Instructions: RETURN TO ED IF WORSE,
[2017-07-08 23:59] LABS: APPEARANCE,URINE SLIGHTLY HAZY (CLEAR); BLOOD/HEMOGLOBIN,URINE NEGATIVE (NEGATIVE); COLOR,URINE YELLOW (YELLOW); GLUCOSE, URINE 1+ (NEGATIVE); KETONES,URINE NEGATIVE (NEGATIVE); NITRITES,URINE NEGATIVE (NEGATIVE); PROTEIN,URINE NEGATIVE (NEGATIVE)
[2017-07-09] LABS: BACTERIA,URINE NEGATIVE /HPF (NEGATIVE); BILIRUBIN,URINE NEGATIVE (NEGATIVE); LEUKOCYTE ESTERASE ,URINE NEGATIVE (NEGATIVE); RBC,URINE 0-3 /HPF (NEGATIVE); SQUAMOUS EPITHELIAL CELL,UR MODERATE /HPF (NEGATIVE); UROBILINOGEN,URINE NORMAL (NORMAL)
[2017-07-09] MEDS ORDERED: MORPHINE SULFATE INJ 4 MG IM ONE (00:01)
[2017-07-09] MEDS ORDERED: ZOFRAN INJ 4 MG VIAL IM ONE (00:04)
[2017-07-09] MEDS ORDERED: MORPHINE SULFATE INJ 4 MG ONE (00:37)
[2017-07-09] MEDS ORDERED: ZOFRAN INJ 4 MG VIAL ONE (00:37)
--- NOTE | 2017-07-09 01:10 | CT ---
CT abdomen and pelvis with contrast Indication: Left flank pain Comparison: 03/21/2017 Technique: CT images of the abdomen and pelvis were obtained without contrast per protocol. Automatic exposure control was utilized. Findings: 3 mm right lower lobe nodule is unchanged dating back to 07/16/2014 and therefore likely be nign. No acute consolidation or pleural effusion. No acute skeletal abnormality identified on review of bone windows. Within the limitations of a noncontrast study, the liver, spleen, stomach, duodenum, pancreas, and ad renals demonstrate no significant abnormality. There is a stable small nonobstructing left lower pole renal stone. No ureteral stones. There is a new punctate nonobstructing right renal stone. No significant bowel thickening or dilatation of the lower GI tract. The uterus and ovaries are noted . The urinary bladder and rectum are unremarkable. No free fluid or adenopathy identified. Impression: Small nonobstructing bilateral renal stones. No ureteral stones identified. No acute process identified, within noncontrast limitations. Reported By:
[2017-07-09 01:31] VITALS: BP 139/69
== END 2017-07-09 01:26 | disposition home or self-care (01) ==
LOC: ER 22:58
DX: R10.84 Generalized abdominal pain (principal); M54.5 Low back pain; G89.29 Other chronic pain
CPT/HCPCS: 74176; 81001; 96372; 99283; 99284; J2270; J2405

== ENCOUNTER → 2017-07-08 | Outpatient (CLI) | payer BC ==
[2017-06-23 16:30] VITALS: BP 150/84
[2017-07-08 16:58] LABS: BASOPHILS # (AUTO) 0.1 X10^3/uL (0.0-0.1); BASOPHILS % (AUTO) 0.7 % (0.2-1.0); EOSINOPHILS # (AUTO) 0.1 x10^3/uL (0.0-0.2); EOSINOPHILS % (AUTO) 1.4 % (0.9-2.9); HEMATOCRIT 35.9 % (36.0-47.0); HEMOGLOBIN 11.9 g/dL (12.0-16.0); LYMPHOCYTES # (AUTO) 2.5 X10^3/uL (1.3-2.9); MEAN CORPUSCULAR HEMOGLOBIN 30.2 pg (27.0-34.0); MEAN CORPUSCULAR HGB CONC 33.1 g/dL (33.0-35.0); MEAN CORPUSCULAR VOLUME 91.4 fL (80.0-100.0); MEAN PLATELET VOLUME 8.2 fL (7.4-11.0); MONOCYTES # (AUTO) 0.5 x10^3/uL (0.3-0.8); MONOCYTES % (AUTO) 7.7 % (0.0-13.0); NEUTROPHILS # (AUTO) 3.7 x10^3/uL (2.2-4.8); NEUTROPHILS % (AUTO) 54.2 % (42.0-75.0); PLATELET COUNT 308 X10^3/uL (150.0-450.0); RED BLOOD COUNT 3.93 X10^6/uL (3.5-5.4); RED CELL DISTRIBUTION WIDTH 14.6 % (11.6-16.5); WHITE BLOOD COUNT 6.9 X10^3/uL (3.6-10.0)
[2017-07-08 17:03] LABS: CREATININE,URINE 109.63 mg/dL (29-226); TOTAL PROTEIN,URINE 21.1 mg/dl (0-11.9)
[2017-07-08 17:10] LABS: ALBUMIN 3.9 g/dL (3.4-5.0); BLOOD UREA NITROGEN 31 mg/dL (7-18); CALCIUM 9.9 mg/dL (8.5-10.1); CHLORIDE 99 mmol/L (98-107); COR NA(FOR HYPERGLY) 135 mmol/L (136-145); CREATININE 1.44 mg/dL (0.55-1.02); PHOSPHORUS 4.7 mg/dL (2.6-4.7); SODIUM 133 mmol/L (136-145); URIC ACID 6.6 mg/dL (2.6-6.0); eGFR BLACK RACES 47 (>60); eGFR NON BLACK RACES 39 (>60)
== END ==
LOC: LAB 16:39
PROVIDERS: ATTEND Internal Medicine
DX: N18.1 Chronic kidney disease, stage 1 (principal); N17.9 Acute kidney failure, unspecified
CPT/HCPCS: 36415; 80069; 82570; 84157; 84550; 85025

== ENCOUNTER → 2017-07-15 | Outpatient (CLI) | payer BC ==
[2017-07-09 01:31] VITALS: BP 139/69
--- NOTE | 2017-07-15 14:21 | CT ---
Indication: Slurred speech and weakness. Exam: CT head Technique: Routine transaxial images were obtained through the brain without contrast Comparison: 10/30/2016. Findings: The ventricles are normal. No intracranial hemorrhage or edema is seen. There is no extra-a xial fluid collection or mass. The bones are intact. Impression: No abnormality seen. This is unchanged from the prior study. Reported By:
== END ==
LOC: RAD 13:22
PROVIDERS: ATTEND Nurse Practitioner Family
DX: R51 Headache (principal); I10 Essential (primary) hypertension; R47.81 Slurred speech; R29.810 Facial weakness
CPT/HCPCS: 70450

== ENCOUNTER → 2017-10-27 | Outpatient (CLI) | payer BC ==
[2017-10-27 13:39] LABS: BASOPHILS # (AUTO) 0.1 X10^3/uL (0.0-0.1); BASOPHILS % (AUTO) 1.1 % (0.2-1.0); EOSINOPHILS # (AUTO) 0.1 x10^3/uL (0.0-0.2); EOSINOPHILS % (AUTO) 2.5 % (0.9-2.9); HEMATOCRIT 35.1 % (36.0-47.0); HEMOGLOBIN 11.8 g/dL (12.0-16.0); LYMPHOCYTES # (AUTO) 1.9 X10^3/uL (1.3-2.9); LYMPHOCYTES % (AUTO) 35.4 % (21.0-51.0); MEAN CORPUSCULAR HGB CONC 33.6 g/dL (33.0-35.0); MEAN CORPUSCULAR VOLUME 92.2 fL (80.0-100.0); MEAN PLATELET VOLUME 8.2 fL (7.4-11.0); MONOCYTES # (AUTO) 0.4 x10^3/uL (0.3-0.8); MONOCYTES % (AUTO) 6.8 % (0.0-13.0); NEUTROPHILS % (AUTO) 54.2 % (42.0-75.0); PLATELET COUNT 296 X10^3/uL (150.0-450.0); RED BLOOD COUNT 3.81 X10^6/uL (3.5-5.4); RED CELL DISTRIBUTION WIDTH 13.6 % (11.6-16.5); WHITE BLOOD COUNT 5.5 X10^3/uL (3.6-10.0)
[2017-10-27 13:47] LABS: HEMOGLOBIN A1C 7.3 %
[2017-10-27 13:51] LABS: ALANINE AMINOTRANSFERASE 20 Units/L (12-78); ALBUMIN 3.7 g/dL (3.4-5.0); ALKALINE PHOSPHATASE 69 Units/L (46-116); ASPARTATE AMINO TRANSFERASE 14 Units/L (15-37); BLOOD UREA NITROGEN 38 mg/dL (7-18); CALCIUM 9.3 mg/dL (8.5-10.1); CARBON DIOXIDE 29.8 mmol/L (21-32); CHLORIDE 101 mmol/L (98-107); CHOL/HDL RATIO 3.3 (0.0-5.0); CHOLESTEROL 249 mg/dL (0-200); COR NA(FOR HYPERGLY) 141 mmol/L (136-145); CREATININE 1.47 mg/dL (0.55-1.02); HDL CHOLESTEROL 76 mg/dL (40-60); SODIUM 139 mmol/L (136-145); TOTAL PROTEIN 7.8 g/dL (6.4-8.2); TRIGLYCERIDES 85 mg/dL (0-150); eGFR BLACK RACES 46 (>60); eGFR NON BLACK RACES 38 (>60)
[2017-10-27 14:21] LABS: ERYTHROCYTE SEDIMENTATION RATE 96 MM/HOUR (0-20)
== END ==
LOC: LAB 13:17
PROVIDERS: ATTEND Psychiatry & Neurology Neurology
DX: B35.1 Tinea unguium (principal); E11.21 Type 2 diabetes mellitus with diabetic nephropathy; E78.00 Pure hypercholesterolemia, unspecified; I10 Essential (primary) hypertension; M17.12 Unilateral primary osteoarthritis, left knee
CPT/HCPCS: 36415; 80053; 80061; 82306; 83036; 85025; 85652

== ENCOUNTER 2017-11-19 15:40 | Observation (INO) | payer BC ==
[2017-11-19] MEDS ORDERED: ECOTRIN TAB 325 MG PO ONE (17:56)
[2017-11-19] MEDS: PROTONIX INJ 40 MG VIAL IVP SCH ×2 (18:18→20:09)
[2017-11-19] MEDS: ASPIRIN PO SCH (18:18)
[2017-11-19] MEDS: PEPCID 20 MG IV PREMIX* 20 MG/50 ML BAG IV SCH ×2 (18:18→20:08)
[2017-11-19 18:33] LABS: BASOPHILS # (AUTO) 0.1 X10^3/uL (0.0-0.1); EOSINOPHILS # (AUTO) 0.1 x10^3/uL (0.0-0.2); EOSINOPHILS % (AUTO) 1.6 % (0.9-2.9); HEMOGLOBIN 11.1 g/dL (12.0-16.0); LYMPHOCYTES # (AUTO) 2.7 X10^3/uL (1.3-2.9); LYMPHOCYTES % (AUTO) 31.9 % (21.0-51.0); MEAN CORPUSCULAR HGB CONC 32.5 g/dL (33.0-35.0); MEAN CORPUSCULAR VOLUME 95.2 fL (80.0-100.0); MONOCYTES # (AUTO) 0.7 x10^3/uL (0.3-0.8); MONOCYTES % (AUTO) 7.8 % (0.0-13.0); NEUTROPHILS # (AUTO) 4.9 x10^3/uL (2.2-4.8); NEUTROPHILS % (AUTO) 57.7 % (42.0-75.0); PLATELET COUNT 329 X10^3/uL (150.0-450.0); RED BLOOD COUNT 3.57 X10^6/uL (3.5-5.4); RED CELL DISTRIBUTION WIDTH 13.6 % (11.6-16.5); WHITE BLOOD COUNT 8.4 X10^3/uL (3.6-10.0)
[2017-11-19 18:57] LABS: AMYLASE 67 Units/L (25-115); LIPASE 473 Units/L (73-393)
[2017-11-19 19:00] LABS: ALANINE AMINOTRANSFERASE 17 Units/L (12-78); ALBUMIN 3.5 g/dL (3.4-5.0); ALKALINE PHOSPHATASE 72 Units/L (46-116); ASPARTATE AMINO TRANSFERASE 10 Units/L (15-37); BLOOD UREA NITROGEN 38 mg/dL (7-18); CALCIUM 9.2 mg/dL (8.5-10.1); CARBON DIOXIDE 24.8 mmol/L (21-32); CHLORIDE 98 mmol/L (98-107); COR NA(FOR HYPERGLY) 140 mmol/L (136-145); CREATININE 2.19 mg/dL (0.55-1.02); MAGNESIUM 1.3 mg/dL (1.7-2.9); SODIUM 134 mmol/L (136-145); TOTAL PROTEIN 7.8 g/dL (6.4-8.2); eGFR BLACK RACES 29 (>60); eGFR NON BLACK RACES 24 (>60)
[2017-11-19 19:29] LABS: CKMB % 1.1 % (<4); CREATINE KINASE 92 Units/L (26-192); TROPONIN I < 0.02 ng/mL (0-1.5)
--- NOTE | 2017-11-19 19:31 | RAD ---
HISTORY: Chest pain Study: Single view chest Comparison: 01/28/2017 Findings: Single portable upright view is submitted. No infiltrate, effusion or pneumothorax identified. The ca rdiac and mediastinal contours are within normal limits. The soft tissues are unremarkable. IMPRESSION: 1. No acute cardiopulmonary abnormality. Reported By:
[2017-11-19] MEDS ORDERED: POTASSIUM CHL 60 MEQ/NS 0.45% 500 ML IV PRN (20:24)
[2017-11-19] MEDS ORDERED: POTASSIUM CHL 40 MEQ/NS 0.45% 500 ML IV PRN (20:24)
[2017-11-19] MEDS ORDERED: K-RIDER 10 MEQ/NS 100 ML 10 MEQ/100 ML BAG IV PRN (20:24)
[2017-11-19] MEDS ORDERED: K-LYTE EFFERVESCENT PO PRN (20:24)
[2017-11-19] MEDS ORDERED: POTASSIUM CHLORIDE LIQ 20 MEQ UDC PO PRN (20:24)
[2017-11-19 21:23] LABS: BILIRUBIN,URINE NEGATIVE (NEGATIVE); BLOOD/HEMOGLOBIN,URINE NEGATIVE (NEGATIVE); GLUCOSE, URINE 4+ (NEGATIVE); KETONES,URINE NEGATIVE (NEGATIVE); LEUKOCYTE ESTERASE ,URINE NEGATIVE (NEGATIVE); NITRITES,URINE NEGATIVE (NEGATIVE); PROTEIN,URINE NEGATIVE (NEGATIVE); UROBILINOGEN,URINE NORMAL (NORMAL)
[2017-11-19 21:32] LABS: APPEARANCE,URINE CLEAR (CLEAR); COLOR,URINE YELLOW (YELLOW)
[2017-11-19] MEDS ORDERED: NS 250 ML IV 250 ML IV ONE (22:40)
[2017-11-19] MEDS: MAGNESIUM SULFATE 1 GM/100 mL PREMIX 1 GM/100 ML BAG IV PRN (22:50)
[2017-11-20 00:36] VITALS: BMI 39.6
[2017-11-20] MEDS: MAGNESIUM SULFATE 1 GM/100 mL PREMIX 1 GM/100 ML BAG IV PRN ×3 (01:01→03:35)
[2017-11-20 01:39] LABS: CKMB % 1.4 % (<4); CREATINE KINASE 71 Units/L (26-192); TROPONIN I < 0.02 ng/mL (0-1.5)
[2017-11-20] MEDS: MORPHINE SULFATE INJ 2 MG INJ IVP PRN ×2 (02:20→05:10)
[2017-11-20 06:19] LABS: BASOPHILS # (AUTO) 0.1 X10^3/uL (0.0-0.1); EOSINOPHILS # (AUTO) 0.1 x10^3/uL (0.0-0.2); EOSINOPHILS % (AUTO) 2.1 % (0.9-2.9); HEMATOCRIT 32.1 % (36.0-47.0); HEMOGLOBIN 10.7 g/dL (12.0-16.0); LYMPHOCYTES # (AUTO) 2.5 X10^3/uL (1.3-2.9); LYMPHOCYTES % (AUTO) 39.8 % (21.0-51.0); MEAN CORPUSCULAR HGB CONC 33.3 g/dL (33.0-35.0); MEAN CORPUSCULAR VOLUME 92.9 fL (80.0-100.0); MEAN PLATELET VOLUME 8.7 fL (7.4-11.0); MONOCYTES # (AUTO) 0.5 x10^3/uL (0.3-0.8); MONOCYTES % (AUTO) 8.6 % (0.0-13.0); NEUTROPHILS # (AUTO) 3.1 x10^3/uL (2.2-4.8); NEUTROPHILS % (AUTO) 48.5 % (42.0-75.0); PLATELET COUNT 297 X10^3/uL (150.0-450.0); RED BLOOD COUNT 3.45 X10^6/uL (3.5-5.4); RED CELL DISTRIBUTION WIDTH 13.4 % (11.6-16.5); WHITE BLOOD COUNT 6.3 X10^3/uL (3.6-10.0)
[2017-11-20] MEDS: HumuLIN R SUBCUT PRN ×4 (06:21→22:06)
[2017-11-20 07:08] LABS: AMYLASE 61 Units/L (25-115); CKMB % 2.6 % (<4); CREATINE KINASE 58 Units/L (26-192); CREATINE KINASE MB 1.5 ng/mL (0-4.0); LIPASE 433 Units/L (73-393); MAGNESIUM 2.9 mg/dL (1.7-2.9); TROPONIN I < 0.02 ng/mL (0-1.5)
[2017-11-20 07:14] LABS: ALBUMIN 3.2 g/dL (3.4-5.0); CALCIUM 9.1 mg/dL (8.5-10.1); CARBON DIOXIDE 28.5 mmol/L (21-32); CHOL/HDL RATIO 3.9 (0.0-5.0); COR CA(FOR HYPOALB) 9.7 mg/dL (8.5-10.1); CREATININE 1.62 mg/dL (0.55-1.02); TOTAL PROTEIN 6.8 g/dL (6.4-8.2)
[2017-11-20] MEDS: ASPIRIN PO SCH (08:35)
[2017-11-20] MEDS: PROTONIX INJ 40 MG VIAL IVP SCH ×2 (08:35→22:05)
[2017-11-20] MEDS: PEPCID 20 MG IV PREMIX* 20 MG/50 ML BAG IV SCH ×2 (08:35→22:05)
[2017-11-20 10:43] LABS: CKMB % 2.4 % (<4); CREATINE KINASE 59 Units/L (26-192); CREATINE KINASE MB 1.4 ng/mL (0-4.0); TROPONIN I < 0.02 ng/mL (0-1.5)
--- NOTE | 2017-11-20 11:39 | DR.UPDATE ---
H&P Update History and Physical Update: WAS ADMITTED FOR CHEST PAIN AND HYPOGLYCEMIA. A H&P WAS COMPLETED PRIOR TO ADMISSION. PATIENT HAS BEEN SEEN AND EXAMINED WITH NO CHANGES NOTED TO H&P. Changes noted: NO Yes with the following:
[2017-11-20] MEDS ORDERED: ULTRAM PO PRN (12:23)
[2017-11-20] MEDS ORDERED: VALSARTAN PO SCH (12:30)
[2017-11-20] MEDS ORDERED: HYDROCHLOROTHIAZIDE PO SCH (12:30)
[2017-11-20] MEDS ORDERED: [UNRECOGNIZED DRUG - OTHER] PO SCH (12:30)
[2017-11-20] MEDS: EFFEXOR XR 75 MG CAP PO SCH (13:24)
[2017-11-20] MEDS: LIPITOR TAB 20 MG PO SCH (13:25)
[2017-11-20] MEDS: LOPRESSOR TAB 50 MG PO SCH ×2 (13:26→22:04)
[2017-11-20] MEDS: GLUCOPHAGE XR PO SCH (13:27)
[2017-11-20] MEDS: XANAX PO SCH ×2 (13:27→22:06)
[2017-11-20 14:20] LABS: CKMB % 1.7 % (<4); CREATINE KINASE 65 Units/L (26-192); CREATINE KINASE MB 1.1 ng/mL (0-4.0); TROPONIN I < 0.02 ng/mL (0-1.5)
[2017-11-20 18:41] LABS: CREATINE KINASE 70 Units/L (26-192); CREATINE KINASE MB 1.4 ng/mL (0-4.0); TROPONIN I < 0.02 ng/mL (0-1.5)
[2017-11-20] MEDS ORDERED: SNACK - Diabetic Appropriate PO SCH (20:00)
[2017-11-20] MEDS ORDERED: AMBIEN PO SCH (21:00)
[2017-11-21 05:26] LABS: BASOPHILS # (AUTO) 0.1 X10^3/uL (0.0-0.1); BASOPHILS % (AUTO) 1.3 % (0.2-1.0); EOSINOPHILS # (AUTO) 0.2 x10^3/uL (0.0-0.2); EOSINOPHILS % (AUTO) 2.5 % (0.9-2.9); HEMATOCRIT 33.3 % (36.0-47.0); HEMOGLOBIN 11.1 g/dL (12.0-16.0); LYMPHOCYTES # (AUTO) 2.8 X10^3/uL (1.3-2.9); LYMPHOCYTES % (AUTO) 37.2 % (21.0-51.0); MEAN CORPUSCULAR HGB CONC 33.4 g/dL (33.0-35.0); MEAN CORPUSCULAR VOLUME 92.6 fL (80.0-100.0); MEAN PLATELET VOLUME 8.3 fL (7.4-11.0); MONOCYTES # (AUTO) 0.6 x10^3/uL (0.3-0.8); MONOCYTES % (AUTO) 7.6 % (0.0-13.0); NEUTROPHILS # (AUTO) 3.8 x10^3/uL (2.2-4.8); NEUTROPHILS % (AUTO) 51.4 % (42.0-75.0); PLATELET COUNT 319 X10^3/uL (150.0-450.0); RED BLOOD COUNT 3.59 X10^6/uL (3.5-5.4); RED CELL DISTRIBUTION WIDTH 13.3 % (11.6-16.5); WHITE BLOOD COUNT 7.5 X10^3/uL (3.6-10.0)
[2017-11-21 05:43] LABS: ALBUMIN 3.3 g/dL (3.4-5.0); CALCIUM 9.3 mg/dL (8.5-10.1); CARBON DIOXIDE 29.8 mmol/L (21-32); COR CA(FOR HYPOALB) 9.9 mg/dL (8.5-10.1); CREATININE 1.28 mg/dL (0.55-1.02); TOTAL PROTEIN 7.5 g/dL (6.4-8.2)
[2017-11-21] MEDS: XANAX PO SCH (05:48)
[2017-11-21] MEDS: HumuLIN R SUBCUT PRN (05:49)
[2017-11-21] MEDS: EFFEXOR XR 75 MG CAP PO SCH (08:29)
[2017-11-21] MEDS: PEPCID 20 MG IV PREMIX* 20 MG/50 ML BAG IV SCH (08:29)
[2017-11-21] MEDS: PROTONIX INJ 40 MG VIAL IVP SCH (08:29)
[2017-11-21] MEDS: LIPITOR TAB 20 MG PO SCH (08:29)
[2017-11-21] MEDS: ASPIRIN PO SCH (08:29)
[2017-11-21] MEDS: LOPRESSOR TAB 50 MG PO SCH (08:30)
[2017-11-21] MEDS: GLUCOPHAGE XR PO SCH (08:30)
[2017-11-21] MEDS ORDERED: DIOVAN TAB 160 MG PO SCH (09:00)
[2017-11-21] MEDS ORDERED: HYDROCHLOROTHIAZIDE 25 MG TAB PO SCH (09:00)
[2017-11-21 10:09] VITALS: BP 150/72
--- NOTE | 2017-11-21 13:23 | PCM.PROG ---
Progress Note - Progress Note for Day of Date: 11/20/17 - Subjective Subjective: WAS ADMITTED FOR CHEST PAIN. TODAY, SHE IS ALERT AND ORIENTED, LYING IN BED ON MORNING ROUNDS. SPOUSE IS AT BEDSIDE. TODAY, SHE CONTINUE WITH INTERMITTENT CHEST PAIN, GENERALIZED WEAKNESS, AND DIZZINESS. ON EXAMINATION, HEART IS REGULAR IN RATE AND RHYTHM. BILATERAL LUNGS ARE CLEAR TO AUSCULTATION. ABDOMEN IS ROUND, SOFT, AND NON-TENDER WITH NORMAL BOWEL SOUNDS NOTED IN ALL QUADRANTS. HER VITALS THIS MORNING ARE 97.7-77-14-100%-132/78. LABS WERE OBTAINED. ABNORMAL LAB VALUES INCLUDE THE FOLLOWING: RBC 3.45, HGB 10.7, HCT 32.1, BUN 35, CREATININE 1.62, GLUCOSE 230, AST 11, ALBUMIN 3.2, LIPASE 433. CARDIAC ENZYMES WITHIN NORMAL LIMITS. MOST RECENT EKG REVEALS SINUS RHYTHM, RIGHT BUNDLE BRANCH BLOCK WITH HR 80. TODAY, WE WILL OBTAIN AN ECHOCARDIOGRAM AND REPEAT SERIAL CARDIAC ENZYMES AND EKGS. WE WILL DISCONTINUE HER HOME MEDICATION OF METFORMIN 1000MG PO BID AND START METFORMIN XR 500MG PO DAILY. OTHERWISE, WE WILL CONTINUE WITH CURRENT PLAN OF CARE. WE PLAN TO FOLLOW UP WITH AM LABS AND CONTINUE TO MONITOR PATIENT. - Past Medical Family Social History Past Med/Fam/Surg Hx: No changes since H&P Allergies: Allergies codeine Allergy (Verified 06/23/17 16:26) iodine Allergy (Verified 06/23/17 16:26) shrimp Allergy (Verified 11/20/17 17:34) tetanus immune globulin Allergy (Verified 06/23/17 16:26) walnut Allergy (Verified 06/23/17 16:26) - Review of Systems ROS: No change since H&P - Vital Signs and I&O's Vital Signs: Temperature 98.1 F Pulse Rate [Apical] 53 Respiratory Rate 16 Blood Pressure [Right Arm] 130/77 Blood Pressure [Left Arm] 150/72 Blood Pressure 139/69 O2 Sat by Pulse Oximetry 100 Intake and Output: Intake & Output 11/19/17 11/20/17 11/21/17 11/22/17 11:59 11:59 11:59 11:59 Intake Total 1451 1238 Output Total 1800 1500 Balance -349 -262 - Physical Exam Oriented: Normal Eyes: Normal Ear: Normal Nose: Normal Throat: Normal Respiratory: Normal Cardiovascular: Normal. negative: S3, S4, Murmur : Normal Auscultation: Bowel Sounds: Normal Palpation: Normal Tenderness: Normal Skin: Normal Musculoskeletal: Normal Psychiatric: Normal Mood Description: Calm Affect: Normal Speech Pattern: Clear, Appropriate - Laboratory and Diagnostics Result Diagrams: 11/21/17 05:05 11/21/17 05:05 Labs: Laboratory WBC 7.5 X10^3/uL (3.6-10.0) 11/21/17 05:05 RBC 3.59 X10^6/uL (3.5-5.4) 11/21/17 05:05 Hgb 11.1 g/dL (12.0-16.0) L 11/21/17 05:05 Hct 33.3 % (36.0-47.0) L 11/21/17 05:05 MCV 92.6 fL (80.0-100.0) 11/21/17 05:05 MCH 31.0 pg (27.0-34.0) 11/21/17 05:05 MCHC 33.4 g/dL (33.0-35.0) 11/21/17 05:05 RDW 13.3 % (11.6-16.5) 11/21/17 05:05 Plt Count 319 X10^3/uL (150.0-450.0) 11/21/17 05:05 MPV 8.3 fL (7.4-11.0) 11/21/17 05:05 Neut % (Auto) 51.4 % (42.0-75.0) 11/21/17 05:05 Lymph % (Auto) 37.2 % (21.0-51.0) 11/21/17 05:05 [place] % (Auto) 7.6 % (0.0-13.0) 11/21/17 05:05 Eos % (Auto) 2.5 % (0.9-2.9) 11/21/17 05:05 Baso % (Auto) 1.3 % (0.2-1.0) H 11/21/17 05:05 Neut # (Auto) 3.8 x10^3/uL (2.2-4.8) 11/21/17 05:05 Lymph # (Auto) 2.8 X10^3/uL (1.3-2.9) 11/21/17 05:05 [place] # (Auto) 0.6 x10^3/uL (0.3-0.8) 11/21/17 05:05 Eos # (Auto) 0.2 x10^3/uL (0.0-0.2) 11/21/17 05:05 Baso # (Auto) 0.1 X10^3/uL (0.0-0.1) 11/21/17 05:05 Absolute Nucleated RBC 0.1 /100WBC 11/21/17 05:05 INR Target Range - 11/19/17 18:13 INR 0.95 (0.8-1.3) 11/19/17 18:13 APTT 27.1 SECONDS (22.9-36.5) 11/19/17 18:13 PTT Comment - 11/19/17 18:13 Sodium 137 mmol/L (136-145) 11/21/17 05:05 Corrected Sodium 139 mmol/L (136-145) 11/21/17 05:05 Potassium 4.2 mmol/L (3.5-5.1) 11/21/17 05:05 Chloride 100 mmol/L (98-107) 11/21/17 05:05 Carbon Dioxide 29.8 mmol/L (21-32) 11/21/17 05:05 BUN 30 mg/dL (7-18) H 11/21/17 05:05 Creatinine 1.28 mg/dL (0.55-1.02) H 11/21/17 05:05 Est GFR (MDRD) Af Amer 54 (>60) L 11/21/17 05:05 Est GFR (MDRD) Non-Af 45 (>60) L 11/21/17 05:05 Glucose 170 mg/dL (65-99) H 11/21/17 05:05 POC Glucose (mg/dL) 173 mg/dL (65-99) H 11/21/17 05:27 Calcium 9.3 mg/dL (8.5-10.1) 11/21/17 05:05 Corrected Calcium 9.9 mg/dL (8.5-10.1) 11/21/17 05:05 Magnesium 2.9 mg/dL (1.7-2.9) 11/20/17 05:30 Total Bilirubin 0.30 mg/dL (0.2-1.0) 11/21/17 05:05 AST 12 Units/L (15-37) L 11/21/17 05:05 ALT 16 Units/L (12-78) 11/21/17 05:05 Alkaline Phosphatase 70 Units/L (46-116) 11/21/17 05:05 Creatine Kinase 70 Units/L (26-192) 11/20/17 18:03 CK-MB (CK-2) 1.4 ng/mL (0-4.0) 11/20/17 18:03 CK/CKMB % Calc 2.0 % (<4) 11/20/17 18:03 Troponin I < 0.02 ng/mL (0-1.5) 11/20/17 18:03 Total Protein 7.5 g/dL (6.4-8.2) 11/21/17 05:05 Albumin 3.3 g/dL (3.4-5.0) L 11/21/17 05:05 Globulin 4.2 g/dL (2.5-4.5) 11/21/17 05:05 Albumin/Globulin Ratio 0.8 Ratio (1.1-2.1) L 11/21/17 05:05 Triglycerides 110 mg/dL (0-150) 11/20/17 05:30 Cholesterol 232 mg/dL (0-200) H 11/20/17 05:30 LDL Cholesterol, Calc 150 mg/dL (0-100) H 11/20/17 05:30 HDL Cholesterol 60 mg/dL (40-60) 11/20/17 05:30 Cholesterol/HDL Ratio 3.9 (0.0-5.0) 11/20/17 05:30 Amylase 61 Units/L (25-115) 11/20/17 05:30 Lipase 433 Units/L (73-393) H 11/20/17 05:30 Specimen Type Random urine 11/19/17 21:06 Urine Color Yellow (YELLOW) 11/19/17 21:06 Urine Appearance Clear (CLEAR) 11/19/17 21:06 Urine pH 5.0 (5.0 - 8.0) 11/19/17 21:06 Ur Specific [place] 1.015 (1.000-1.030) 11/19/17 21:06 Urine Protein Negative (NEGATIVE) 11/19/17 21:06 Urine Glucose (UA) 4+ (NEGATIVE) 11/19/17 21:06 Urine Ketones Negative (NEGATIVE) 11/19/17 21:06 Urine Occult Blood Negative (NEGATIVE) 11/19/17 21:06 Urine Nitrite Negative (NEGATIVE) 11/19/17 21:06 Urine Bilirubin Negative (NEGATIVE) 11/19/17 21:06 Urine Urobilinogen Normal (NORMAL) 11/19/17 21:06 Ur Leukocyte Esterase Negative (NEGATIVE) 11/19/17 21:06 - Plan (1) Chest pain, rule out acute myocardial infarction Status: Acute Plan: SERIAL CARDIAC ENZYMES AND EKGS, SUPPLEMENTAL OXYGEN, PROGRAM DIRECTOR GROUP WORK, ECHO, CONTINUE TO MONITOR (2) Insulin dependent diabetes mellitus Status: Chronic Plan: METFORMIN XR 500MG PO DAILY, OTBS ACHS, INSULIN R SLIDING SCALE, CONTINUE TO MONITOR
== END 2017-11-21 10:50 | disposition home or self-care (01) ==
LOC: ICU 15:40
PROVIDERS: ADMIT Internal Medicine; ATTEND Internal Medicine
DX: R07.89 Other chest pain (principal); E11.649 Type 2 diabetes mellitus with hypoglycemia without coma; R94.31 Abnormal electrocardiogram [ECG] [EKG]
CPT/HCPCS: 36415; 71045; 80053; 80061; 81003; 82150; 82550; 82553; 83690; 83735; 84484; 85025; 85610; 85730; 93005; 93306; A4216; A4222; C9113; S0028; G0378; J1815; J2270

== ENCOUNTER 2021-02-16 13:30 | Observation (INO) ==
[2021-02-16] MEDS ORDERED: NS 1000 ML 1,000 ML IV STA (14:17)
--- NOTE | 2021-02-16 14:17 | DR.GIBLEED ---
HPI Time Seen Time Seen by Provider: 02/16/21 14:06 Primary Care Physician Primary Care Physician: Kimberly Leslie HPI Comment HPI Comment: PATIENT WITH A HISTORY OF COLITIS, TYPE 2 DIABETES, CHRONIC RENAL INSUFFICIENCY, HYPERTENSION COMPLAINS OF EMESIS, ABDOMINAL PAIN, WATERY BLACK STOOL FOR 2 WEEKS. HAS WEAKNESS AND DIZZINESS UPON STANDING. DENIES ASSOCIATED FEVER, CHILLS, ARTHRALGIAS. HAS FREQUENT EPISODES OR EMESIS. Complaints Chief Complaint Doctors Comments: ABDOMINAL PAIN, NAUSEA, VOMITING, DIARRHEA Chief Complaint:: Pt c/o abd pain, n/v/d x approx 2 weeks. She states she thinks she has had blood in her stool. She states she has had dark, tarry stools. She also states her heart rate has been high. COVID-19 Coronavirus risk:travel/contact w/high risk person: No Has patient experienced Coronavirus symptoms: No Reviewed Nurses Notes Reviewed: Yes Source History Provided: Patient Mode of Arrival Mode of Arrival: Ambulatory Timing Onset of Chief Complaint: 02/02/21 Quality Vomitus: Coffee Ground Stools: Tarry Black Context Onset: Spontaneous PMH PMH Past Medical History: Yes Past Medical History: CVA, Depression, Diabetes, Hypertension and Renal Disease Past Medical History Comment: Fibromyalgia Past Surgical History: Yes Surgical History: , Cholecystectomy and Ortho Surgery Family History History of Family Medical Conditions: Yes Family Medical History: Diabetes Mellitus and Hypertension Social History Does patient currently use any type of tobacco product: No Have you used tobacco products in the last 12 months: No Type of Tobacco Use: None Does any household member use tobacco: No Alcohol Use: None Do you use any recreational Drugs:: No Lives With: Alone Lives Where: Home Travel Risk Coronavirus risk:travel/contact w/high risk person: No Has patient experienced Coronavirus symptoms: No Infectious screening In the last 2 months have you had wt loss of >10#?: NO Have you had fever, night sweats or hemotysis?: No Have you traveled outside the country in the last 6 months?: No Isolation: Standard ROS Review of Systems Constitutional: No Symptoms Reported Eyes: No Symptoms Reported ENTM: No Symptoms Reported Respiratoy: No Symptoms Reported Cardiovascular: No Symptoms Reported Gastrointestinal/Abdominal: See HPI, Abdominal Pain, Diarrhea, Nausea, Vomiting and Other (BLACK DIARRHEA STOOL) Genitourinary: No Symptoms Reported Neurological: No Symptoms Reported Musculoskeletal: No Symptoms Reported Integumentary: No Symptoms Reported Hematologic/Lymphatic: No Symptoms Reported Endocrine: No Symptoms Reported Psychiatric: No Symptoms Reported All Other Systems: Reviewed and Negative PE Vital Signs Vitals: Temperature 98.0 F Pulse Rate [Right] 111 Pulse Rate [Standing] 126 Pulse Rate [Sitting] 116 Pulse Rate [Lying] 107 Pulse Rate 118 Respiratory Rate 18 Blood Pressure [Right Arm] 132/90 Blood Pressure [Left Arm] 125/77 Blood Pressure [Standing] 133/87 Blood Pressure [Sitting] 144/102 Blood Pressure [Lying] 159/92 Blood Pressure 133/86 O2 Sat by Pulse Oximetry 96 General Limitations: No Limitations General Appearance: Alert and In No Apparent Distress Head Head Exam: Normal Inspection and Atraumatic Eyes Eye exam: Normal Appearance and PERRL ENT ENT Exam: Normal Exam and Normal Oropharynx Neck Neck Exam: Normal Inspection and Full ROM Chest Chest Inspection: Normal Inspection Respiratory Respiratory Exam: Normal Lung Sounds Bilat Respiratory Exam: Bilateral: Clear to Auscultation Cardiovascular Cardiovascular Exam: Regular Rate and Normal Rhythm Abdominal Exam Abdominal Exam: Normal Inspection, Normal Bowel Sounds, Soft and Tenderness (MINIMAL PERIUMBILICAL TENDERNESS) Extremities Extremities Exam: Normal Inspection and Full ROM Back Back Exam: Normal Inspection and Full ROM Neurologic Neurological Exam: Alert and Oriented X3 Psychiatric Psychiatric Exam: Normal Affect and Normal Mood DIFFERENTIAL DIAGNOSIS Differential Diagnosis Differential Diagnosis Comment: DEHYDRATION, ACUTE GASTROENTERITIS, ACUTE COLITIS COURSE Treatment Treatment: IV NORMAL SALINE 200ML/HR, ZOFRAN 4MG IV, ORTHOSTATIC VS SUPINE BP159/92 PULSE-107, STANDING BP 133/87 P-126 Reevaluation 1st: Improved Consultation Call Returned: 19:15 Consultation Comments: DISCUSSED FINDINGS WITH DR HART FOR ADMIT TO OBSERVATION ROR Labs Reviewed Laboratory Results Reviewed?: Yes Result Diagrams: 02/16/21 14:44 02/16/21 14:44 Laboratory: WBC 9.0 X10^3/uL (3.6-10.0) 02/16/21 14:44 RBC 4.67 X10^6/uL (3.5-5.4) 02/16/21 14:44 Hgb 13.4 g/dL (12.0-16.0) 02/16/21 14:44 Hct 41.6 % (36.0-47.0) 02/16/21 14:44 MCV 89.2 fL (80.0-100.0) 02/16/21 14:44 MCH 28.8 pg (27.0-34.0) 02/16/21 14:44 MCHC 32.3 g/dL (33.0-35.0) L 02/16/21 14:44 RDW 14.4 % (11.6-16.5) 02/16/21 14:44 Plt Count 337 X10^3/uL (150.0-450.0) 02/16/21 14:44 MPV 8.0 fL (7.4-11.0) 02/16/21 14:44 Neut % (Auto) 59.0 % (42.0-75.0) 02/16/21 14:44 Lymph % (Auto) 30.1 % (21.0-51.0) 02/16/21 14:44 [place] % (Auto) 9.1 % (0.0-13.0) 02/16/21 14:44 Eos % (Auto) 0.6 % (0.9-2.9) L 02/16/21 14:44 Baso % (Auto) 1.2 % (0.2-1.0) H 02/16/21 14:44 Neut # (Auto) 5.3 x10^3/uL (2.2-4.8) H 02/16/21 14:44 Lymph # (Auto) 2.7 X10^3/uL (1.3-2.9) 02/16/21 14:44 [place] # (Auto) 0.8 x10^3/uL (0.3-0.8) 02/16/21 14:44 Eos # (Auto) 0.1 x10^3/uL (0.0-0.2) 02/16/21 14:44 Baso # (Auto) 0.1 X10^3/uL (0.0-0.1) 02/16/21 14:44 Absolute Nucleated RBC 0.1 /100WBC 02/16/21 14:44 PT 12.9 SECONDS (11.8-14.3) 02/16/21 14:44 INR Target Range - 02/16/21 14:44 INR 1.02 (0.8-1.3) 02/16/21 14:44 Sodium 136 mmol/L (136-145) 02/16/21 14:44 Corrected Sodium 141 mmol/L (136-145) 02/16/21 14:44 Potassium 3.6 mmol/L (3.5-5.1) 02/16/21 14:44 Chloride 96 mmol/L (98-107) L 02/16/21 14:44 Carbon Dioxide 27.0 mmol/L (21-32) 02/16/21 14:44 BUN 29 mg/dL (7-18) H 02/16/21 14:44 Creatinine 2.12 mg/dL (0.55-1.02) H 02/16/21 14:44 Est GFR (MDRD) Af Amer 30 (>60) L 02/16/21 14:44 Est GFR (MDRD) Non-Af 25 (>60) L 02/16/21 14:44 Glucose 315 mg/dL (65-99) H 02/16/21 14:44 Calcium 9.7 mg/dL (8.5-10.1) 02/16/21 14:44 Corrected Calcium TNP 02/16/21 14:44 Magnesium 1.8 mg/dL (1.7-2.9) 02/16/21 14:44 Total Bilirubin 0.30 mg/dL (0.2-1.0) 02/16/21 14:44 AST 13 Units/L (15-37) L 02/16/21 14:44 ALT 18 Units/L (12-78) 02/16/21 14:44 Alkaline Phosphatase 110 Units/L (46-116) 02/16/21 14:44 Total Protein 7.8 g/dL (6.4-8.2) 02/16/21 14:44 Albumin 3.6 g/dL (3.4-5.0) 02/16/21 14:44 Globulin 4.2 g/dL (2.5-4.5) 02/16/21 14:44 Albumin/Globulin Ratio 0.9 Ratio (1.1-2.1) L 02/16/21 14:44 Specimen Type Clean catch urine 02/16/21 16:13 Urine Color Straw (YELLOW) 02/16/21 16:13 Urine Appearance Hazy (CLEAR) 02/16/21 16:13 Urine pH 5.0 (5.0 - 8.0) 02/16/21 16:13 Ur Specific [place] 1.010 (1.000-1.030) 02/16/21 16:13 Urine Protein Negative (NEGATIVE) 02/16/21 16:13 Urine Glucose (UA) 4+ (NEGATIVE) 02/16/21 16:13 Urine Ketones Negative (NEGATIVE) 02/16/21 16:13 Urine Occult Blood Negative (NEGATIVE) 02/16/21 16:13 Urine Nitrite Negative (NEGATIVE) 02/16/21 16:13 Urine Bilirubin Negative (NEGATIVE) 02/16/21 16:13 Urine Urobilinogen Normal (NORMAL) 02/16/21 16:13 Ur Leukocyte Esterase 2+ (NEGATIVE) 02/16/21 16:13 Urine RBC None seen /HPF (0-3) 02/16/21 16:13 Urine WBC 5-10 /HPF (0-5) A 02/16/21 16:13 Ur Squamous Epith Cells Moderate /HPF (NEGATIVE) 02/16/21 16:13 Amorphous Sediment Trace /HPF (NEGATIVE) 02/16/21 16:13 Urine Bacteria Trace /HPF (NEGATIVE) 02/16/21 16:13 Urine Mucus Few /HPF (NEGATIVE) 02/16/21 16:13 Ur Culture Indicated? No/not indicated 02/16/21 16:13 SARS-CoV-2 (PCR) Negative (NEGATIVE) 02/16/21 17:24 Influenza Type A (PCR) Negative (NEGATIVE) 02/16/21 17:24 Influenza Type B (PCR) Negative (NEGATIVE) 02/16/21 17:24 RSV (PCR) Negative (NEGATIVE) 02/16/21 17:24 Blood Type O NEGATIVE 02/16/21 14:44 Antibody Screen Negative 02/16/21 14:44 XRAY XRAY Interpreted by: Radiologist (ABDOMINAL PELVIC CT WITHOUT CONTRAST C/W NO EVIDENCE OF ACUTE COLITIS, DIVERTICULITIS, NONAGGRESSIVE APPEARING LIPOMA MEASURES 2CM IN RIGHT PROXIMAL COLON WALL, NO EVIDENCE OF BOWEL OBSTRUCTION.) Opioid Opioid Risk Tool Age (Shadi box if 16-45): No History of Preadolescent Sexual Abuse: No Total: 0 Total Score Risk Category: Low Risk Copyright: Franklin COSTA predicting aberrant behaviors Diagnosis Discharge Problem: Acute gastroenteritis, Acute dehydration
[2021-02-16] MEDS ORDERED: NS 1000 ML 1,000 ML ONE (14:48)
[2021-02-16 15:00] LABS: BASOPHILS # (AUTO) 0.1 X10^3/uL (0.0-0.1); BASOPHILS % (AUTO) 1.2 % (0.2-1.0); EOSINOPHILS # (AUTO) 0.1 x10^3/uL (0.0-0.2); EOSINOPHILS % (AUTO) 0.6 % (0.9-2.9); HEMATOCRIT 41.6 % (36.0-47.0); HEMOGLOBIN 13.4 g/dL (12.0-16.0); LYMPHOCYTES # (AUTO) 2.7 X10^3/uL (1.3-2.9); LYMPHOCYTES % (AUTO) 30.1 % (21.0-51.0); MEAN CORPUSCULAR HEMOGLOBIN 28.8 pg (27.0-34.0); MEAN CORPUSCULAR HGB CONC 32.3 g/dL (33.0-35.0); MEAN CORPUSCULAR VOLUME 89.2 fL (80.0-100.0); MONOCYTES # (AUTO) 0.8 x10^3/uL (0.3-0.8); MONOCYTES % (AUTO) 9.1 % (0.0-13.0); NEUTROPHILS # (AUTO) 5.3 x10^3/uL (2.2-4.8); PLATELET COUNT 337 X10^3/uL (150.0-450.0); RED BLOOD COUNT 4.67 X10^6/uL (3.5-5.4); RED CELL DISTRIBUTION WIDTH 14.4 % (11.6-16.5)
--- NOTE | 2021-02-16 15:09 | CT ---
HISTORYEPIGASTRIC ABDOMINAL PAIN, N/V, BLOODY STOOL[Renal colic and flank pain]. Concern for renal stone.Exam: Non-contrast CT examination of the abdomen & pelvis.Technique: Multiple CT images of the abdomen and pelvis were obtained from the lung bases to the pubic symphysis without the IV administration of contrast. Of note, this CT exam was optimized for renal stone disease and some parenchymal organ abnormalities and vascular abnormalities/injuries cannot be excluded on the basis of this CT exam.Findings:The lung bases are clear. The heart is normal in size without a pericardial effusion. Noncontrast CT images of the liver, pancreas, stomach, spleen, adrenal glands, and left kidney are unremarkable appearance. The right proximal renal pelvis is dilated without evidence for obstructing renal stone seen bilaterally. No acute mesenteric inflammation is seen within the abdomen or pelvis. There is no definitive convincing evidence for acute colitis or diverticulitis. Several small diverticular seen in the sigmoid colon. There is a nonaggressive appearing lipoma seen in the right proximal colon wall on image number 39 of series 3 which measures 2 cm in greatest dimension. No high-grade bowel obstruction or abdominal hernia defect is seen. If the patient has active bleeding from a lower GI source, then follow-up with a nuclear medicine GI bleeding study is suggested to evaluate/determine the source of the active lower GI bleed. No other abdominopelvic abnormalities are seen, given limitations of this noncontrast study. No acute fracture or destructive lytic bony lesion is identified. There is [id number] spinal spondylosis observed, diffusely.Impression:No acute mesenteric inflammation is seen within the abdomen or pelvis. There is no definitive convincing evidence for acute colitis or diverticulitis.Several small diverticular seen in the sigmoid colon. Dilated right renal pelvis of indeterminate etiology or significance.Nonaggressive appearing lipoma seen in the right proximal colon wall on image number 39 of series 3 which measures 2 cm in greatest dimension.No high-grade bowel obstruction or abdominal hernia defect is seen.If the patient has active bleeding from a lower GI source, then follow-up with a nuclear medicine GI bleeding study be considered to evaluate/determine the source of the active lower GI bleed in this patient.No other abdominopelvic abnormalities are seen, given limitations of this noncontrast study.Electronically signed by: DARION ERICKSON III (Feb 16, 2021 15:07:32)
[2021-02-16 15:14] LABS: ALANINE AMINOTRANSFERASE 18 Units/L (12-78); ALBUMIN 3.6 g/dL (3.4-5.0); ALKALINE PHOSPHATASE 110 Units/L (46-116); ASPARTATE AMINO TRANSFERASE 13 Units/L (15-37); BLOOD UREA NITROGEN 29 mg/dL (7-18); CALCIUM 9.7 mg/dL (8.5-10.1); CHLORIDE 96 mmol/L (98-107); COR NA(FOR HYPERGLY) 141 mmol/L (136-145); CREATININE 2.12 mg/dL (0.55-1.02); MAGNESIUM 1.8 mg/dL (1.7-2.9); SODIUM 136 mmol/L (136-145); TOTAL PROTEIN 7.8 g/dL (6.4-8.2); eGFR NON BLACK RACES 25 (>60)
[2021-02-16] MEDS ORDERED: ZOFRAN INJ 4 MG VIAL IVP ONE (18:02)
[2021-02-16 18:23] LABS: BILIRUBIN,URINE NEGATIVE (NEGATIVE); BLOOD/HEMOGLOBIN,URINE NEGATIVE (NEGATIVE); GLUCOSE, URINE 4+ (NEGATIVE); KETONES,URINE NEGATIVE (NEGATIVE); LEUKOCYTE ESTERASE ,URINE 2+ (NEGATIVE); NITRITES,URINE NEGATIVE (NEGATIVE); PROTEIN,URINE NEGATIVE (NEGATIVE); UROBILINOGEN,URINE NORMAL (NORMAL)
[2021-02-16] MEDS ORDERED: ZOFRAN INJ 4 MG VIAL ONE (18:32)
[2021-02-16 18:48] LABS: APPEARANCE,URINE HAZY (CLEAR); BACTERIA,URINE TRACE /HPF (NEGATIVE); COLOR,URINE STRAW (YELLOW); RBC,URINE NONE SEEN /HPF (0-3); SQUAMOUS EPITHELIAL CELL,UR MODERATE /HPF (NEGATIVE)
[2021-02-16 18:49] LABS: AMORPHOUS SEDIMENT,UR TRACE /HPF (NEGATIVE); MUCUS,URINE FEW /HPF (NEGATIVE)
[2021-02-16] MEDS ORDERED: ZOFRAN INJ 4 MG VIAL IVP PRN (19:49)
[2021-02-16] MEDS: APRESOLINE TAB 25 MG PO SCH (21:51)
[2021-02-16] MEDS: NS 1000 ML 1,000 ML IV SCH (21:51)
[2021-02-16] MEDS: HumuLIN R SC PRN (21:52)
[2021-02-17 02:42] VITALS: BMI 37.1
[2021-02-17] MEDS: NS 1000 ML 1,000 ML IV SCH ×3 (05:10→19:29)
[2021-02-17] MEDS: APRESOLINE TAB 25 MG PO SCH ×2 (08:52→20:53)
[2021-02-17] MEDS ORDERED: PROTONIX INJ 40 MG VIAL IVP SCH (09:00)
[2021-02-17] MEDS ORDERED: LOPRESSOR TAB 50 MG PO SCH (09:00)
[2021-02-17] MEDS ORDERED: ULTRAM PO PRN (09:19)
--- NOTE | 2021-02-17 09:34 | DR.H&P ---
H&P History & Physical for Day of: H&P Date: 02/17/21 Chief Complaint Chief Complaint: Abdominal pain, diarrhea Weakness, Dizziness Allergies Allergies Allergy/AdvReac Type Severity Reaction Status Date / Time codeine Allergy Verified 08/16/20 16:56 iodine Allergy Verified 08/16/20 16:56 shrimp Allergy Verified 08/16/20 16:56 tetanus immune globulin Allergy Verified 08/16/20 16:56 walnut Allergy Verified 08/16/20 16:56 History of Present Illness History of Present Illness: Pt is a 65 year old female past medical history of colitis, DMT2, CKD, HTN, presenting with abdominal pain, weakness, dizziness for the past 2-3 days. She reports also having diarrhea with dark coloration that had her concerned. She has not been drinking enough fluids due to abdominal pain and nausea. Denies fevers, chills. Labs/imaging: Wbc 9.0, Hgb 13.4, Plt 337, INR 1.02, Na 136, K 3.6, Creatinine 2.12, Glucose 315, COVID19/Flu/RSV negative, CTAP: No acute mesenteric inflammation is seen within the abdomen or pelvis. There is no definitive convincing evidence for acute colitis or diverticulitis. Several small diverticular seen in the sigmoid colon. Dilated right renal pelvis of indeterminate etiology or significance. Nonaggressive appearing lipoma seen in the right proximal colon wall on image number 39 of series 3 which measures 2 cm in greatest dimension. No high-grade bowel obstruction or abdominal hernia defect is seen. No other abdominopelvic abnormalities are seen. Pt was dehydrated on exam. Ordered stool studies, fecal occult. Will start on IVF NS, restart home medications. Change CLD to ADA diet if patient can tolerate. Continue to monitor and follow up labs in the morning. Past Medical History Past Medical History: CVA, Depression, Diabetes, Hypertension and Renal Disease Additional Medical History: Fibromyalgia, Degenerative Disc Disease Past Surgical History Surgical History: , Cholecystectomy, Ortho Surgery and Lithotripsy Family History Family Medical History: Diabetes Mellitus and Hypertension Social History Does patient currently use any type of tobacco product: No Have you used tobacco products in the last 12 months: No Type of Tobacco Use: None Does any household member use tobacco: No Alcohol Use: None Drug Use: None Medications Home Medications: codeine Allergy (Verified 08/16/20 16:56) iodine Allergy (Verified 08/16/20 16:56) shrimp Allergy (Verified 08/16/20 16:56) tetanus immune globulin Allergy (Verified 08/16/20 16:56) walnut Allergy (Verified 08/16/20 16:56) Labs Result Diagrams: 02/18/21 05:50 02/18/21 05:50 Labs: Laboratory WBC 9.0 X10^3/uL (3.6-10.0) 02/16/21 14:44 RBC 4.67 X10^6/uL (3.5-5.4) 02/16/21 14:44 Hgb 13.4 g/dL (12.0-16.0) 02/16/21 14:44 Hct 41.6 % (36.0-47.0) 02/16/21 14:44 MCV 89.2 fL (80.0-100.0) 02/16/21 14:44 MCH 28.8 pg (27.0-34.0) 02/16/21 14:44 MCHC 32.3 g/dL (33.0-35.0) L 02/16/21 14:44 RDW 14.4 % (11.6-16.5) 02/16/21 14:44 Plt Count 337 X10^3/uL (150.0-450.0) 02/16/21 14:44 MPV 8.0 fL (7.4-11.0) 02/16/21 14:44 Neut % (Auto) 59.0 % (42.0-75.0) 02/16/21 14:44 Lymph % (Auto) 30.1 % (21.0-51.0) 02/16/21 14:44 [place] % (Auto) 9.1 % (0.0-13.0) 02/16/21 14:44 Eos % (Auto) 0.6 % (0.9-2.9) L 02/16/21 14:44 Baso % (Auto) 1.2 % (0.2-1.0) H 02/16/21 14:44 Neut # (Auto) 5.3 x10^3/uL (2.2-4.8) H 02/16/21 14:44 Lymph # (Auto) 2.7 X10^3/uL (1.3-2.9) 02/16/21 14:44 [place] # (Auto) 0.8 x10^3/uL (0.3-0.8) 02/16/21 14:44 Eos # (Auto) 0.1 x10^3/uL (0.0-0.2) 02/16/21 14:44 Baso # (Auto) 0.1 X10^3/uL (0.0-0.1) 02/16/21 14:44 Absolute Nucleated RBC 0.1 /100WBC 02/16/21 14:44 PT 12.9 SECONDS (11.8-14.3) 02/16/21 14:44 INR Target Range - 02/16/21 14:44 INR 1.02 (0.8-1.3) 02/16/21 14:44 Sodium 136 mmol/L (136-145) 02/16/21 14:44 Corrected Sodium 141 mmol/L (136-145) 02/16/21 14:44 Potassium 3.6 mmol/L (3.5-5.1) 02/16/21 14:44 Chloride 96 mmol/L (98-107) L 02/16/21 14:44 Carbon Dioxide 27.0 mmol/L (21-32) 02/16/21 14:44 BUN 29 mg/dL (7-18) H 02/16/21 14:44 Creatinine 2.12 mg/dL (0.55-1.02) H 02/16/21 14:44 Est GFR (MDRD) Af Amer 30 (>60) L 02/16/21 14:44 Est GFR (MDRD) Non-Af 25 (>60) L 02/16/21 14:44 Glucose 315 mg/dL (65-99) H 02/16/21 14:44 POC Glucose (mg/dL) 109 mg/dL (65-99) H 02/17/21 05:44 Calcium 9.7 mg/dL (8.5-10.1) 02/16/21 14:44 Corrected Calcium TNP 02/16/21 14:44 Magnesium 1.8 mg/dL (1.7-2.9) 02/16/21 14:44 Total Bilirubin 0.30 mg/dL (0.2-1.0) 02/16/21 14:44 AST 13 Units/L (15-37) L 02/16/21 14:44 ALT 18 Units/L (12-78) 02/16/21 14:44 Alkaline Phosphatase 110 Units/L (46-116) 02/16/21 14:44 Total Protein 7.8 g/dL (6.4-8.2) 02/16/21 14:44 Albumin 3.6 g/dL (3.4-5.0) 02/16/21 14:44 Globulin 4.2 g/dL (2.5-4.5) 02/16/21 14:44 Albumin/Globulin Ratio 0.9 Ratio (1.1-2.1) L 02/16/21 14:44 Specimen Type Clean catch urine 02/16/21 16:13 Urine Color Straw (YELLOW) 02/16/21 16:13 Urine Appearance Hazy (CLEAR) 02/16/21 16:13 Urine pH 5.0 (5.0 - 8.0) 02/16/21 16:13 Ur Specific [place] 1.010 (1.000-1.030) 02/16/21 16:13 Urine Protein Negative (NEGATIVE) 02/16/21 16:13 Urine Glucose (UA) 4+ (NEGATIVE) 02/16/21 16:13 Urine Ketones Negative (NEGATIVE) 02/16/21 16:13 Urine Occult Blood Negative (NEGATIVE) 02/16/21 16:13 Urine Nitrite Negative (NEGATIVE) 02/16/21 16:13 Urine Bilirubin Negative (NEGATIVE) 02/16/21 16:13 Urine Urobilinogen Normal (NORMAL) 02/16/21 16:13 Ur Leukocyte Esterase 2+ (NEGATIVE) 02/16/21 16:13 Urine RBC None seen /HPF (0-3) 02/16/21 16:13 Urine WBC 5-10 /HPF (0-5) A 02/16/21 16:13 Ur Squamous Epith Cells Moderate /HPF (NEGATIVE) 02/16/21 16:13 Amorphous Sediment Trace /HPF (NEGATIVE) 02/16/21 16:13 Urine Bacteria Trace /HPF (NEGATIVE) 02/16/21 16:13 Urine Mucus Few /HPF (NEGATIVE) 02/16/21 16:13 Ur Culture Indicated? No/not indicated 02/16/21 16:13 SARS-CoV-2 (PCR) Negative (NEGATIVE) 02/16/21 17:24 Influenza Type A (PCR) Negative (NEGATIVE) 02/16/21 17:24 Influenza Type B (PCR) Negative (NEGATIVE) 02/16/21 17:24 RSV (PCR) Negative (NEGATIVE) 02/16/21 17:24 Blood Type O NEGATIVE 02/16/21 14:44 Antibody Screen Negative 02/16/21 14:44 Review of Systems Constitutional: Weakness; denies Fever and Chills Eyes: No Symptoms Reported ENT: No Symptoms Reported Respiratory: No Symptoms Reported Cardiovascular: No Symptoms Reported Gastrointestinal: Nausea, Vomiting, Abdominal Pain and Diarrhea Genitourinary: No Symptoms Reported Musculoskeletal: No Symptoms Reported Skin: No Symptoms Reported Neurological: No Symptoms Reported Physical Exam Vital Signs: Temperature 98.3 F Pulse Rate [Right] 90 Pulse Rate [Standing] 126 Pulse Rate [Sitting] 116 Pulse Rate [Lying] 107 Pulse Rate 118 Respiratory Rate 18 Blood Pressure [Right Arm] 127/74 Blood Pressure [Left Arm] 125/77 Blood Pressure [Standing] 133/87 Blood Pressure [Sitting] 144/102 Blood Pressure [Lying] 159/92 Blood Pressure 133/86 O2 Sat by Pulse Oximetry 99 Oriented: Normal Eyes: Normal Ear: Normal Nose: Normal Throat: Normal Respiratory: Clear Throughout Cardiovascular: Normal : Normal Auscultation: Bowel Sounds: Normal Palpation: Normal Tenderness: Epigastric and Mild Skin: Normal Musculoskeletal: Normal Psychiatric: Normal Mood Description: Calm and Appropriate Affect: Normal Speech Pattern: Clear and Appropriate Assessment/Plan (1) Dehydration: Status: Acute Plan: IVF (2) Acute dehydration: Status: Acute (3) Acute gastroenteritis: Status: Acute (4) Acute kidney injury: Status: Acute Plan: Trend renal function, continue IVF Review H&P Reviewed: Yes Patient was examined?: Yes
[2021-02-17] MEDS: EFFEXOR XR 75 MG CAP 24-HR PO SCH (11:01)
[2021-02-17] MEDS: NEURONTIN CAP 400 MG PO SCH ×3 (11:02→21:11)
[2021-02-17] MEDS: PROTONIX TAB 40 MG PO SCH (11:02)
[2021-02-17] MEDS: HYDROCHLOROTHIAZIDE 12.5 MG CAP PO SCH (11:02)
[2021-02-17] MEDS: HumuLIN R SC PRN ×2 (17:41→20:53)
[2021-02-17] MEDS ORDERED: LIPITOR TAB 20 MG ONE (19:17)
[2021-02-17] MEDS ORDERED: SNACK - Diabetic Appropriate PO SCH (20:00)
[2021-02-17] MEDS ORDERED: LIPITOR TAB 20 MG PO SCH (21:00)
[2021-02-18] MEDS: NEURONTIN CAP 400 MG PO SCH (05:15)
[2021-02-18] MEDS: NS 1000 ML 1,000 ML IV SCH ×2 (05:17→12:02)
[2021-02-18] MEDS: HumuLIN R SC PRN (05:57)
[2021-02-18 06:49] LABS: BASOPHILS % (AUTO) 0.6 % (0.2-1.0); EOSINOPHILS # (AUTO) 0.1 x10^3/uL (0.0-0.2); EOSINOPHILS % (AUTO) 1.3 % (0.9-2.9); HEMATOCRIT 37.6 % (36.0-47.0); HEMOGLOBIN 12.2 g/dL (12.0-16.0); LYMPHOCYTES # (AUTO) 1.8 X10^3/uL (1.3-2.9); LYMPHOCYTES % (AUTO) 30.1 % (21.0-51.0); MEAN CORPUSCULAR HGB CONC 32.5 g/dL (33.0-35.0); MEAN PLATELET VOLUME 8.2 fL (7.4-11.0); MONOCYTES # (AUTO) 0.4 x10^3/uL (0.3-0.8); MONOCYTES % (AUTO) 7.2 % (0.0-13.0); NEUTROPHILS # (AUTO) 3.7 x10^3/uL (2.2-4.8); NEUTROPHILS % (AUTO) 60.8 % (42.0-75.0); PLATELET COUNT 284 X10^3/uL (150.0-450.0); RED BLOOD COUNT 4.22 X10^6/uL (3.5-5.4); RED CELL DISTRIBUTION WIDTH 14.3 % (11.6-16.5); WHITE BLOOD COUNT 6.1 X10^3/uL (3.6-10.0)
[2021-02-18 06:55] LABS: ALBUMIN 2.8 g/dL (3.4-5.0); CALCIUM 8.6 mg/dL (8.5-10.1); CARBON DIOXIDE 27.5 mmol/L (21-32); COR CA(FOR HYPOALB) 9.6 mg/dL (8.5-10.1); CREATININE 1.37 mg/dL (0.55-1.02); TOTAL PROTEIN 6.4 g/dL (6.4-8.2)
[2021-02-18] MEDS ORDERED: TOPROL XL PO SCH (09:00)
[2021-02-18] MEDS: EFFEXOR XR 75 MG CAP 24-HR PO SCH (10:22)
[2021-02-18] MEDS: APRESOLINE TAB 25 MG PO SCH (10:23)
[2021-02-18] MEDS: PROTONIX TAB 40 MG PO SCH (10:23)
[2021-02-18] MEDS: HYDROCHLOROTHIAZIDE 12.5 MG CAP PO SCH (10:24)
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
[2021-02-18 12:25] VITALS: BP 142/63
== END 2021-02-18 14:30 | disposition home or self-care (01) ==
LOC: ER 13:30 → MED/SURG 13:30
PROVIDERS: ADMIT Internal Medicine; ATTEND Family Medicine
DX: Z20.822 Contact with and (suspected) exposure to COVID-19; K52.89 Other specified noninfective gastroenteritis and colitis; N17.8 Other acute kidney failure; I12.9 Hypertensive chronic kidney disease with stage 1 through stage 4 chronic kidney disease, or unspecified chronic kidney disease; R42 Dizziness and giddiness; E86.0 Dehydration

== ENCOUNTER 2023-04-03 22:14 | Observation (INO) ==
--- NOTE | 2023-04-03 22:31 | DR.CP ---
HPI Time Seen Time Seen by Provider: 04/03/23 22:31 PCP Primary Care Physician: Germaine Complaint Chief Complaint Doctor Comments: Patient states that she had been feeling sob for several days and began to have constant chest pain for 2 days. Patient has a h/o CKD and states that she has been having a hard time urinating.Patient presents because she has persistent sob and chest pain. Chief Complaint:: Pt c/o chest pain x 2 days. She states the pain radiates into neck and face. She states the pain eases at times but does not go away. Pt also c/o having difficulty passing urine today. COVID-19 Coronavirus risk:travel/contact w/high risk person: No Has patient experienced Coronavirus symptoms: No Source History Provided: Patient Mode of Arrival Mode of Arrival: Ambulatory Timing Onset of Chief Complaint: 04/02/23 PMH PMH Past Medical History: Yes Past Medical History: Anemia, Arthritis, CVA, Depression, Diabetes, Dyslipidemia, GERD, Hypertension, Kidney Stones, Renal Disease and Sleep Apnea Past Surgical History: Yes Surgical History: , Cholecystectomy, Ortho Surgery and Lithotripsy Family History History of Family Medical Conditions: Yes Family Medical History: Diabetes Mellitus and Hypertension Social History Does patient currently use any type of tobacco product: No Have you used tobacco products in the last 12 months: No Type of Tobacco Use: None Does any household member use tobacco: No Do you use any recreational Drugs:: No Lives Where: Home Travel Risk Coronavirus risk:travel/contact w/high risk person: No Has patient experienced Coronavirus symptoms: No Infectious screening In the last 2 months have you had wt loss of >10#?: NO Have you had fever, night sweats or hemotysis?: No Have you traveled outside the country in the last 6 months?: No Isolation: Standard ROS Review of Systems Constitutional: No Symptoms Reported Eyes: No Symptoms Reported ENTM: No Symptoms Reported Respiratoy: Short of Breath Cardiovascular: No Symptoms Reported and Chest Pain Genitourinary: No Symptoms Reported Neurological: No Symptoms Reported Musculoskeletal: No Symptoms Reported Integumentary: No Symptoms Reported Hematologic/Lymphatic: No Symptoms Reported Endocrine: No Symptoms Reported Psychiatric: No Symptoms Reported All Other Systems: Reviewed and Negative PE Vitals Vitals: Vital Signs Temperature 98.7 F Pulse Rate 77 Pulse Rate 83 Pulse Rate 76 Pulse Rate 79 Pulse Rate 92 Pulse Rate 79 Pulse Rate 74 Pulse Rate 74 Pulse Rate 75 Pulse Rate 78 Pulse Rate 92 Respiratory Rate 24 Respiratory Rate 50 Respiratory Rate 55 Respiratory Rate 28 Respiratory Rate 35 Respiratory Rate 42 Respiratory Rate 34 Respiratory Rate 32 Respiratory Rate 24 Respiratory Rate 18 Respiratory Rate 16 Blood Pressure 112/85 Blood Pressure 145/96 Blood Pressure 168/78 Blood Pressure 164/78 Blood Pressure 121/71 O2 Sat by Pulse Oximetry 90 O2 Sat by Pulse Oximetry 90 O2 Sat by Pulse Oximetry 98 O2 Sat by Pulse Oximetry 98 O2 Sat by Pulse Oximetry 93 O2 Sat by Pulse Oximetry 92 O2 Sat by Pulse Oximetry 93 O2 Sat by Pulse Oximetry 94 O2 Sat by Pulse Oximetry 96 General Limitations: No Limitations General Appearance: Alert and In No Apparent Distress Head Head Exam: Normal Inspection Eyes Eye exam: Normal Appearance ENT ENT Exam: Normal Exam Chest Chest Inspection: Normal Inspection Respiratory Respiratory Exam: Other (Decreased BS Bilateral bases) Respiratory Exam: Bilateral: Decreased Breath Sounds and Lower: Decreased Breath Sounds Cardiovascular Cardiovascular Exam: Regular Rate and Normal Rhythm Pulse: Normal Edema: Normal Abdominal Exam Abdominal Exam: Normal Inspection, Normal Bowel Sounds and Soft Extremities Extremities Exam: Normal Inspection Back Back Exam: Normal Inspection Neurologic Neurological Exam: Alert and Oriented X3 Psychiatric Psychiatric Exam: Normal Affect and Normal Mood Skin Skin Exam: Warm, Dry, Intact and Normal Color MDM Differential Diagnosis Differential Diagnosis: CHF, Myocardial Infarction, Pneumonia and Pulmonary Embolus (DDX: electrolyte abnormality) COURSE Treatment Treatment: Patient has a magnesium of 1.2 and recived magnesium 2g iv in the ED. She has a RLL Pneumonia and will recive zosyn 4.5g iv and azithromycin 500mg iv. Patient has chronic Kidney disease and her creat today is 1.59/GFR is 34. Patient states that she has been having difficulty urinating and her u/A was neg. Discussed case with Dr Sheridan.He has accepted patient to his service for further evaluation. Patient has been stable in the ED. ROR Labs Reviewed 04/03/23 22:46 04/03/23 22:46 Laboratory: WBC 10.0 X10^3/uL (3.6-10.0) 04/03/23 22:46 RBC 4.38 X10^6/uL (3.5-5.4) 04/03/23 22:46 Hgb 12.2 g/dL (12.0-16.0) 04/03/23 22:46 Hct 36.8 % (36.0-47.0) 04/03/23 22:46 MCV 84.1 fL (80.0-100.0) 04/03/23 22:46 MCH 27.9 pg (27.0-34.0) 04/03/23 22:46 MCHC 33.1 g/dL (33.0-35.0) 04/03/23 22:46 RDW 15.1 % (11.6-16.5) 04/03/23 22:46 Plt Count 427 X10^3/uL (150.0-450.0) 04/03/23 22:46 MPV 8.1 fL (7.4-11.0) 04/03/23 22:46 Neut % (Auto) 60.4 % (42.0-75.0) 04/03/23 22:46 Lymph % (Auto) 29.8 % (21.0-51.0) 04/03/23 22:46 [place] % (Auto) 7.8 % (0.0-13.0) 04/03/23 22:46 Eos % (Auto) 0.7 % (0.9-2.9) L 04/03/23 22:46 Baso % (Auto) 1.3 % (0.2-1.0) H 04/03/23 22:46 Neut # (Auto) 6.0 x10^3/uL (2.2-4.8) H 04/03/23 22:46 Lymph # (Auto) 3.0 X10^3/uL (1.3-2.9) H 04/03/23 22:46 [place] # (Auto) 0.8 x10^3/uL (0.3-0.8) 04/03/23 22:46 Eos # (Auto) 0.1 x10^3/uL (0.0-0.2) 04/03/23 22:46 Baso # (Auto) 0.1 X10^3/uL (0.0-0.1) 04/03/23 22:46 Absolute Nucleated RBC 0.6 /100WBC 04/03/23 22:46 PT 13.3 SECONDS (11.8-14.3) 04/03/23 22:46 INR Target Range - 04/03/23 22:46 INR 1.03 (0.8-1.3) 04/03/23 22:46 APTT 29.0 SECONDS (22.9-36.5) 04/03/23 22:46 PTT Comment - 04/03/23 22:46 D-Dimer 0.73 ug/ml (0.0-0.57) H 04/03/23 22:46 Sample Site Lrad 04/04/23 01:05 ABG pH 7.430 (7.35-7.45) 04/04/23 01:05 ABG pCO2 41.0 mmHg (35.0-45.0) 04/04/23 01:05 ABG pO2 82.0 mmHg (80.0-100.0) 04/04/23 01:05 ABG HCO3 27.2 mmol/L (22-26) H 04/04/23 01:05 ABG O2 Saturation 96.0 % (90-100) 04/04/23 01:05 ABG Base Excess 2.6 mmol/L (-2.0-2.0) H 04/04/23 01:05 Cyril Test Pos 04/04/23 01:05 A-a Gradient 16.0 mmHg 04/04/23 01:05 FiO2 21.0 04/04/23 01:05 Blood Gas Comments Teresa well-mtf 04/04/23 01:05 Sodium 135 mmol/L (136-145) L 04/03/23 22:46 Corrected Sodium 141 mmol/L (136-145) 04/03/23 22:46 Potassium 4.1 mmol/L (3.5-5.1) 04/03/23 22:46 Chloride 98 mmol/L (98-107) 04/03/23 22:46 Carbon Dioxide 28.0 mmol/L (21-32) 04/03/23 22:46 BUN 25 mg/dL (7-18) H 04/03/23 22:46 Creatinine 1.59 mg/dL (0.55-1.02) H 04/03/23 22:46 Est GFR (MDRD) Af Amer 42 (>60) L 04/03/23 22:46 Est GFR (MDRD) Non-Af 34 (>60) L 04/03/23 22:46 Glucose 331 mg/dL (65-99) H 04/03/23 22:46 Calcium 8.9 mg/dL (8.5-10.1) 04/03/23 22:46 Corrected Calcium 9.5 mg/dL (8.5-10.1) 04/03/23 22:46 Magnesium 1.2 mg/dL (2.0-2.9) L 04/03/23 22:46 Total Bilirubin 0.20 mg/dL (0.2-1.0) 04/03/23 22:46 AST 9 Units/L (15-37) L 04/03/23 22:46 ALT 14 Units/L (12-78) 04/03/23 22:46 Alkaline Phosphatase 108 Units/L (46-116) 04/03/23 22:46 Creatine Kinase 49 Units/L (26-192) 04/03/23 22:46 Troponin I High Sens 4.3 ng/L (4.0-60.0) 04/04/23 00:34 B-Natriuretic Peptide 40.8 pg/mL (0-79) 04/03/23 22:46 Total Protein 8.0 g/dL (6.4-8.2) 04/03/23 22:46 Albumin 3.3 g/dL (3.4-5.0) L 04/03/23 22:46 Globulin 4.7 g/dL (2.5-4.5) H 04/03/23 22:46 Albumin/Globulin Ratio 0.7 Ratio (1.1-2.1) L 04/03/23 22:46 Specimen Type Clean catch urine 04/04/23 00:47 Urine Color Pale yellow (YELLOW) 04/04/23 00:47 Urine Appearance Clear (CLEAR) 04/04/23 00:47 Urine pH 5.0 (5.0 - 8.0) 04/04/23 00:47 Ur Specific [place] 1.010 (1.000-1.030) 04/04/23 00:47 Urine Protein Negative (NEGATIVE) 04/04/23 00:47 Urine Glucose (UA) 4+ (NEGATIVE) 04/04/23 00:47 Urine Ketones Negative (NEGATIVE) 04/04/23 00:47 Urine Blood Negative (NEGATIVE) 04/04/23 00:47 Urine Nitrite Negative (NEGATIVE) 04/04/23 00:47 Urine Bilirubin Negative (NEGATIVE) 04/04/23 00:47 Urine Urobilinogen Normal (NORMAL) 04/04/23 00:47 Ur Leukocyte Esterase Negative (NEGATIVE) 04/04/23 00:47 Opioid Opioid Risk Tool Age (Shadi box if 16-45): No History of Preadolescent Sexual Abuse: No Total: 0 Total Score Risk Category: Low Risk Copyright: Franklin COSTA predicting aberrant behaviors Discharge Plan Diagnosis Discharge Problem: Pneumonia, CKD stage 4 due to type 2 diabetes mellitus, Hypomagnesemia Discharge Plan Patient Disposition: ADMITTED INPATIENT Condition: Stable Prescriptions: No Action lorazepam 1 mg tablet 1 mg PO TID MDD 1/2 BID and 1 at bedime prn PRN (Reason: anxiety) 30 Days Qty: 60 0RF Jardiance 25 mg tablet 25 mg PO QDAY celecoxib 200 mg capsule 200 mg PO TID ropinirole 1 mg tablet 1 mg PO QPM metoprolol succinate 50 mg tablet extended release 24 hr 50 mg PO DAILY glipizide 5 mg tablet extended release 24hr 5 mg PO DAILY amitriptyline 25 mg tablet 25 mg PO QPM gabapentin 800 mg tablet 800 mg PO TID pantoprazole 40 mg tablet,delayed release (DR/EC) 40 mg PO QDAY hydrochlorothiazide 25 mg tablet 25 mg PO DAILY furosemide 20 mg tablet 20 mg PO DAILY (DME) pen needle, diabetic [UltiCare Pen Needle] 31 gauge x 1/4" needle MISCELLANEOUS Patient Comments: [NO ORIGINAL SIG] metformin 750 mg tablet extended release 24 hr 750 mg PO BID quetiapine 50 mg tablet 50 mg PO QPM Levemir FlexTouch U100 Insulin 100 unit/mL (3 mL) insulin pen 40 unit subcut HS Patient Comments: [NO ORIGINAL SIG] Health Concerns: Post Hospitalization: new medications and changes needed to prevent readmission or further decline. Pt educated and given instructions on all concerns. Plan of Treatment: Continue with present treatment and follow up plan. Pt is to keep follow up appointment as instructed and take medications as ordered. Orders to Discharge Patient Discharge Orders: Transfer (Routine); Ordered 04/04/23 Ordered By: Makeda Nelson Follow ups/Referrals Follow ups/Referrals: NFD,None [STAFF PHYSICIAN] - 3 days Instructions Stand Alone Forms: Post Hospital Follow Up Care
--- NOTE | 2023-04-03 22:57 | RAD ---
HISTORYchest pain x2days, short of breathSTUDYCHEST, 1 VIEWCOMPARISONFrontal chest radiograph February 07, 2023FINDINGSThe heart size is enlarged. The trachea is midline. Aortic atherosclerotic calcifications. Elevation of the right hemidiaphragm which is similar to the comparison study. No pneumothorax. Mild patchy infiltrate medial right lung base.IMPRESSIONMild patchy infiltrate medial right lung base may represent hypoventilatory change or developing infectious process.Electronically signed by: Magdi Davenport (Apr 03, 2023 22:55:46)
[2023-04-03 23:00] LABS: BASOPHILS # (AUTO) 0.1 X10^3/uL (0.0-0.1); BASOPHILS % (AUTO) 1.3 % (0.2-1.0); EOSINOPHILS # (AUTO) 0.1 x10^3/uL (0.0-0.2); EOSINOPHILS % (AUTO) 0.7 % (0.9-2.9); HEMATOCRIT 36.8 % (36.0-47.0); HEMOGLOBIN 12.2 g/dL (12.0-16.0); LYMPHOCYTES % (AUTO) 29.8 % (21.0-51.0); MEAN CORPUSCULAR HEMOGLOBIN 27.9 pg (27.0-34.0); MEAN CORPUSCULAR HGB CONC 33.1 g/dL (33.0-35.0); MEAN CORPUSCULAR VOLUME 84.1 fL (80.0-100.0); MEAN PLATELET VOLUME 8.1 fL (7.4-11.0); MONOCYTES # (AUTO) 0.8 x10^3/uL (0.3-0.8); MONOCYTES % (AUTO) 7.8 % (0.0-13.0); NEUTROPHILS % (AUTO) 60.4 % (42.0-75.0); PLATELET COUNT 427 X10^3/uL (150.0-450.0); RED BLOOD COUNT 4.38 X10^6/uL (3.5-5.4); RED CELL DISTRIBUTION WIDTH 15.1 % (11.6-16.5)
[2023-04-03 23:04] LABS: INR 1.03 (0.8-1.3)
--- NOTE | 2023-04-03 23:08 | EKG ---
Test Reason : chest pain Blood Pressure : */* mmHG Vent. Rate : 82 BPM Atrial Rate : 82 BPM P-R Int : 170 ms QRS Dur : 132 ms QT Int : 410 ms P-R-T Axes : 48 -16 -8 degrees QTc Int : 479 ms Normal sinus rhythm Right bundle branch block Abnormal ECG When compared with ECG of 07-FEB-2023 12:20, QRS axis shifted right Borderline criteria for Lateral infarct are no longer present Confirmed by Jerad Barriga ([id number]) on 04/04/2023 8:33:24 AM Referred By: Confirmed By: Jerad Barriga
[2023-04-03 23:14] LABS: ALBUMIN 3.3 g/dL (3.4-5.0); CALCIUM 8.9 mg/dL (8.5-10.1); COR CA(FOR HYPOALB) 9.5 mg/dL (8.5-10.1); CREATININE 1.59 mg/dL (0.55-1.02); MAGNESIUM 1.2 mg/dL (2.0-2.9); POTASSIUM 4.1 mmol/L (3.5-5.1)
[2023-04-03] MEDS ORDERED: MAGNESIUM SULFATE 1 GRAM/100 mL PREMIX 1 G/100 ML BAG IV ONE ×3 (23:21→23:24)
[2023-04-04] MEDS ORDERED: MAGNESIUM SULFATE 1 GRAM/100 mL PREMIX 1 G/100 ML BAG IV ONE (00:27)
--- NOTE | 2023-04-04 00:41 | EKG ---
Test Reason : chest pain Blood Pressure : */* mmHG Vent. Rate : 77 BPM Atrial Rate : 77 BPM P-R Int : 182 ms QRS Dur : 134 ms QT Int : 432 ms P-R-T Axes : 54 -54 30 degrees QTc Int : 488 ms Normal sinus rhythm Left axis deviation Right bundle branch block Abnormal ECG When compared with ECG of 03-APR-2023 22:56, (Unconfirmed) Nonspecific T wave abnormality has replaced inverted T waves in Inferior leads Confirmed by Jerad Barriga ([id number]) on 04/04/2023 8:33:16 AM Referred By: Confirmed By: Jerad Barriga
[2023-04-04 01:02] LABS: BILIRUBIN,URINE NEGATIVE (NEGATIVE); BLOOD/HEMOGLOBIN,URINE NEGATIVE (NEGATIVE); GLUCOSE, URINE 4+ (NEGATIVE); KETONES,URINE NEGATIVE (NEGATIVE); LEUKOCYTE ESTERASE ,URINE NEGATIVE (NEGATIVE); NITRITES,URINE NEGATIVE (NEGATIVE); PROTEIN,URINE NEGATIVE (NEGATIVE); UROBILINOGEN,URINE NORMAL (NORMAL)
[2023-04-04 01:07] LABS: APPEARANCE,URINE CLEAR (CLEAR); COLOR,URINE PALE YELLOW (YELLOW)
[2023-04-04 01:11] LABS: ABG ALLEN TEST POS; ABG BASE EXCESS 2.6 mmol/L (-2.0-2.0); ABG HCO3 27.2 mmol/L (22-26)
[2023-04-04] MEDS ORDERED: NS 100 ML IV 100 ML ONE (01:58)
[2023-04-04] MEDS ORDERED: ZOSYN VIAL 4.5 GRAMS IV ONE (01:58)
--- NOTE | 2023-04-04 02:33 | EKG ---
Test Reason : sob Blood Pressure : */* mmHG Vent. Rate : 79 BPM Atrial Rate : 79 BPM P-R Int : 170 ms QRS Dur : 136 ms QT Int : 440 ms P-R-T Axes : 36 -57 -7 degrees QTc Int : 504 ms Normal sinus rhythm Right bundle branch block Left anterior fascicular block Bifascicular block Abnormal ECG When compared with ECG of 04-APR-2023 00:39, (Unconfirmed) Inverted T waves have replaced nonspecific T wave abnormality in Inferior leads Confirmed by Jerad Barriga ([id number]) on 04/04/2023 8:33:11 AM Referred By: Confirmed By: Jerad Barriga
[2023-04-04] MEDS ORDERED: CONSULT PHARMACY - POTASSIUM & MAGNESIUM XX SCH ×2 (03:00→08:00)
[2023-04-04] MEDS: ZITHROMAX INJ 500 MG VIAL 500 MG in NS 250 ML IV 250 ML IV SCH (03:40)
[2023-04-04 04:00] VITALS: BMI 34.0
[2023-04-04 05:03] LABS: BASOPHILS # (AUTO) 0.1 X10^3/uL (0.0-0.1); BASOPHILS % (AUTO) 1.1 % (0.2-1.0); EOSINOPHILS # (AUTO) 0.1 x10^3/uL (0.0-0.2); EOSINOPHILS % (AUTO) 1.1 % (0.9-2.9); HEMATOCRIT 37.2 % (36.0-47.0); HEMOGLOBIN 12.4 g/dL (12.0-16.0); LYMPHOCYTES # (AUTO) 2.2 X10^3/uL (1.3-2.9); LYMPHOCYTES % (AUTO) 26.5 % (21.0-51.0); MEAN CORPUSCULAR HEMOGLOBIN 27.8 pg (27.0-34.0); MEAN CORPUSCULAR HGB CONC 33.3 g/dL (33.0-35.0); MEAN CORPUSCULAR VOLUME 83.4 fL (80.0-100.0); MEAN PLATELET VOLUME 7.9 fL (7.4-11.0); MONOCYTES # (AUTO) 0.6 x10^3/uL (0.3-0.8); MONOCYTES % (AUTO) 7.4 % (0.0-13.0); NEUTROPHILS # (AUTO) 5.4 x10^3/uL (2.2-4.8); NEUTROPHILS % (AUTO) 63.9 % (42.0-75.0); PLATELET COUNT 423 X10^3/uL (150.0-450.0); RED BLOOD COUNT 4.46 X10^6/uL (3.5-5.4); RED CELL DISTRIBUTION WIDTH 15.1 % (11.6-16.5); WHITE BLOOD COUNT 8.4 X10^3/uL (3.6-10.0)
[2023-04-04 05:15] LABS: ALBUMIN 3.3 g/dL (3.4-5.0); CALCIUM 9.3 mg/dL (8.5-10.1); CARBON DIOXIDE 29.5 mmol/L (21-32); COR CA(FOR HYPOALB) 9.9 mg/dL (8.5-10.1); CREATININE 1.43 mg/dL (0.55-1.02); POTASSIUM 3.7 mmol/L (3.5-5.1)
[2023-04-04] MEDS: NovoLIN R (or HumuLIN R) SUBCUT PRN ×4 (05:31→20:30)
[2023-04-04] MEDS: DUONEB 0.5 MG/3 MG (3 mL) NEB SCH ×4 (08:44→20:20)
[2023-04-04] MEDS: PULMICORT NEB TX 0.5 MG NEB SCH ×2 (08:44→20:20)
[2023-04-04] MEDS ORDERED: ZOSYN VIAL 4.5 GRAMS 4.5 G in NS 100 ML IV 100 ML IV SCH (09:00)
[2023-04-04] MEDS ORDERED: K-DUR TAB 20 MEQ PO SCH (09:00)
[2023-04-04] MEDS ORDERED: NS 250 ML IV 250 ML IV ONE (09:00)
[2023-04-04] MEDS: PROTONIX TAB 40 MG PO SCH (09:01)
[2023-04-04] MEDS: MAGNESIUM SULFATE 1 GRAM/100 mL PREMIX 1 G/100 ML BAG IV SCH ×4 (09:02→16:09)
[2023-04-04] MEDS: LOVENOX INJ 40 MG SYR SC SCH (09:05)
[2023-04-04] MEDS: TORADOL 15 MG VIAL IVP PRN ×2 (14:11→20:20)
[2023-04-04] MEDS: ZOSYN VIAL 4.5 GRAMS 4.5 G in NS 100 ML IV 100 ML IV SCH ×2 (14:11→21:01)
--- NOTE | 2023-04-04 15:10 | VAS ---
HISTORYCalf PainSTUDYLOWER EXT VENOUS, BILATERALCOMPARISONNone.TECHNIQUEMultipl e arechiga scale and color flow Doppler images of the deep venous system were obtained of the right and left lower extremity.FINDINGSThe deep venous system of the right and left lower extremities were evaluated from the level of the common femoral vein through the popliteal vein. Normal color flow and augmentation can be observed. In addition, normal compression is seen throughout the deep venous system.IMPRESSIONNegative for bilateral lower extremity DVT.Electronically signed by: JOE GALLEGO (Apr 04, 2023 15:08:18)
[2023-04-04] MEDS ORDERED: REQUIP PO SCH (21:00)
[2023-04-04] MEDS ORDERED: SEROquel TAB 25 mg PO SCH (21:00)
--- NOTE | 2023-04-04 21:19 | DR.H&P ---
H&P History & Physical for Day of: H&P Date: 04/04/23 Chief Complaint Chief Complaint: Cough, shortness of breath Chest pain Allergies Allergies Allergy/AdvReac Type Severity Reaction Status Date / Time codeine Allergy Unknown Verified 02/07/23 14:14 Iodinated Contrast Media Allergy Unknown Verified 02/13/23 16:16 [IVP DYE] tetanus toxoid, adsorbed Allergy Unknown Verified 02/13/23 16:15 walnut Allergy Unknown Verified 02/07/23 14:14 iodine Allergy Verified 02/07/23 14:14 shrimp Allergy Verified 02/07/23 14:14 tetanus immune globulin Allergy Verified 02/07/23 14:14 History of Present Illness History of Present Illness: Patient is a 67-year-old female with past medical history of Hypertension, DMT2, CKD, and RADHA, presenting with cough, shortness of breath, chest pain for the past two days. She reports feeling some weakness due to symptoms. Labs/imaging: Wbc 8.4, Hgb 12.4, Plt 423, Na 137, K 3.7, Creatinine 1.43, Glucose 236, UA negative, ABG: pH 7.43, pCO2 41, pO2 82, HCO3 27, O2sat 96% on room air. Troponin negative x2. RSV/Influenza/COVID-19 negative, AIT respiratory panel pending CXR was obtained that revealed: Mild patchy infiltrate medial right lung base may represent hypoventilatory change or developing infectious process. Plan: admit with telemetry. Rule out chest pain. Continue IV antibiotics: Zosyn and azithromycin. Add bronchodilators. Supplemental oxygen. Order SSI and restart home medicat ions. Patient complaining of LE pain and edema. Will order Venous US to rule out DVT. Patient also had elevated d-dimer on admission. Unable to do CTA due to allergy to contrast. Continue to closely monitor and follow up labs/imaging in the morning. Past Medical History Past Medical History: Anemia, Arthritis, CVA, Depression, Diabetes, Dyslipidemia , GERD, Hypertension, Kidney Stones, Renal Disease and Sleep Apnea Additional Medical History: Fibromyalgia, Degenerative Disc Disease Past Surgical History Surgical History: , Cholecystectomy and Ortho Surgery Family History Family Medical History: Diabetes Mellitus and Hypertension Social History Does patient currently use any type of tobacco product: No Have you used tobacco products in the last 12 months: No Type of Tobacco Use: None Does any household member use tobacco: No Alcohol Use: None Drug Use: None Medications Home Medications: Home Medications Medication Instructions Recorded Confirmed Type empagliflozin 25 mg tablet 25 mg PO QDAY 02/02/23 02/07/23 History (Jardiance) amitriptyline 25 mg tablet 25 mg PO QPM 02/07/23 02/07/23 History celecoxib 200 mg capsule 200 mg PO TID 02/07/23 02/07/23 History furosemide 20 mg tablet 20 mg PO DAILY 02/07/23 02/07/23 History gabapentin 800 mg tablet 800 mg PO TID 02/07/23 02/07/23 History glipizide 5 mg tablet, extended 5 mg PO DAILY 02/07/23 02/07/23 History release 24 hr hydrochlorothiazide 25 mg tablet 25 mg PO DAILY 02/07/23 02/07/23 History insulin detemir U-100 100 unit/mL 40 unit subcut HS 02/07/23 02/07/23 History (3 mL) subcutaneous pen metformin 750 mg tablet,extended 750 mg PO BID 02/07/23 02/07/23 History release 24 hr metoprolol succinate 50 mg 50 mg PO DAILY 02/07/23 02/07/23 History tablet,extended release 24 hr pantoprazole 40 mg tablet,delayed 40 mg PO QDAY 02/07/23 02/07/23 History release pen needle, diabetic 31 gauge x 02/07/23 02/07/23 History 1/4" (UltiCare Pen Needle) quetiapine 50 mg tablet 50 mg PO QPM 02/07/23 02/07/23 History ropinirole 1 mg tablet 1 mg PO QPM 02/07/23 02/07/23 History Labs 04/04/23 04:31 04/04/23 17:20 Labs: Laboratory WBC 8.4 X10^3/uL (3.6-10.0) 04/04/23 04:31 RBC 4.46 X10^6/uL (3.5-5.4) 04/04/23 04:31 Hgb 12.4 g/dL (12.0-16.0) 04/04/23 04:31 Hct 37.2 % (36.0-47.0) 04/04/23 04:31 MCV 83.4 fL (80.0-100.0) 04/04/23 04:31 MCH 27.8 pg (27.0-34.0) 04/04/23 04:31 MCHC 33.3 g/dL (33.0-35.0) 04/04/23 04:31 RDW 15.1 % (11.6-16.5) 04/04/23 04:31 Plt Count 423 X10^3/uL (150.0-450.0) 04/04/23 04:31 MPV 7.9 fL (7.4-11.0) 04/04/23 04:31 Neut % (Auto) 63.9 % (42.0-75.0) 04/04/23 04:31 Lymph % (Auto) 26.5 % (21.0-51.0) 04/04/23 04:31 [place] % (Auto) 7.4 % (0.0-13.0) 04/04/23 04:31 Eos % (Auto) 1.1 % (0.9-2.9) 04/04/23 04:31 Baso % (Auto) 1.1 % (0.2-1.0) H 04/04/23 04:31 Neut # (Auto) 5.4 x10^3/uL (2.2-4.8) H 04/04/23 04:31 Lymph # (Auto) 2.2 X10^3/uL (1.3-2.9) 04/04/23 04:31 [place] # (Auto) 0.6 x10^3/uL (0.3-0.8) 04/04/23 04:31 Eos # (Auto) 0.1 x10^3/uL (0.0-0.2) 04/04/23 04:31 Baso # (Auto) 0.1 X10^3/uL (0.0-0.1) 04/04/23 04:31 Absolute Nucleated RBC 0.1 /100WBC 04/04/23 04:31 PT 13.3 SECONDS (11.8-14.3) 04/03/23 22:46 INR Target Range - 04/03/23 22:46 INR 1.03 (0.8-1.3) 04/03/23 22:46 APTT 29.0 SECONDS (22.9-36.5) 04/03/23 22:46 PTT Comment - 04/03/23 22:46 D-Dimer 0.73 ug/ml (0.0-0.57) H 04/03/23 22:46 Sample Site Lrad 04/04/23 01:05 ABG pH 7.430 (7.35-7.45) 04/04/23 01:05 ABG pCO2 41.0 mmHg (35.0-45.0) 04/04/23 01:05 ABG pO2 82.0 mmHg (80.0-100.0) 04/04/23 01:05 ABG HCO3 27.2 mmol/L (22-26) H 04/04/23 01:05 ABG O2 Saturation 96.0 % (90-100) 04/04/23 01:05 ABG Base Excess 2.6 mmol/L (-2.0-2.0) H 04/04/23 01:05 Cyril Test Pos 04/04/23 01:05 A-a Gradient 16.0 mmHg 04/04/23 01:05 FiO2 21.0 04/04/23 01:05 Blood Gas Comments Teresa well-mtf 04/04/23 01:05 Sodium 137 mmol/L (136-145) 04/04/23 04:31 Corrected Sodium 140 mmol/L (136-145) 04/04/23 04:31 Potassium 3.7 mmol/L (3.5-5.1) 04/04/23 04:31 Chloride 97 mmol/L (98-107) L 04/04/23 04:31 Carbon Dioxide 29.5 mmol/L (21-32) 04/04/23 04:31 BUN 25 mg/dL (7-18) H 04/04/23 04:31 Creatinine 1.43 mg/dL (0.55-1.02) H 04/04/23 04:31 Est GFR (MDRD) Af Amer 47 (>60) L 04/04/23 04:31 Est GFR (MDRD) Non-Af 39 (>60) L 04/04/23 04:31 Glucose 236 mg/dL (65-99) H 04/04/23 04:31 POC Glucose (mg/dL) 210 mg/dL (65-99) H 04/04/23 05:14 Calcium 9.3 mg/dL (8.5-10.1) 04/04/23 04:31 Corrected Calcium 9.9 mg/dL (8.5-10.1) 04/04/23 04:31 Magnesium 1.2 mg/dL (2.0-2.9) L 04/03/23 22:46 Total Bilirubin 0.30 mg/dL (0.2-1.0) 04/04/23 04:31 AST 11 Units/L (15-37) L 04/04/23 04:31 ALT 16 Units/L (12-78) 04/04/23 04:31 Alkaline Phosphatase 104 Units/L (46-116) 04/04/23 04:31 Creatine Kinase 49 Units/L (26-192) 04/03/23 22:46 Troponin I High Sens 4.0 ng/L (4.0-60.0) 04/04/23 08:45 B-Natriuretic Peptide 40.8 pg/mL (0-79) 04/03/23 22:46 Total Protein 8.0 g/dL (6.4-8.2) 04/04/23 04:31 Albumin 3.3 g/dL (3.4-5.0) L 04/04/23 04:31 Globulin 4.7 g/dL (2.5-4.5) H 04/04/23 04:31 Albumin/Globulin Ratio 0.7 Ratio (1.1-2.1) L 04/04/23 04:31 Specimen Type Clean catch urine 04/04/23 00:47 Urine Color Pale yellow (YELLOW) 04/04/23 00:47 Urine Appearance Clear (CLEAR) 04/04/23 00:47 Urine pH 5.0 (5.0 - 8.0) 04/04/23 00:47 Ur Specific [place] 1.010 (1.000-1.030) 04/04/23 00:47 Urine Protein Negative (NEGATIVE) 04/04/23 00:47 Urine Glucose (UA) 4+ (NEGATIVE) 04/04/23 00:47 Urine Ketones Negative (NEGATIVE) 04/04/23 00:47 Urine Blood Negative (NEGATIVE) 04/04/23 00:47 Urine Nitrite Negative (NEGATIVE) 04/04/23 00:47 Urine Bilirubin Negative (NEGATIVE) 04/04/23 00:47 Urine Urobilinogen Normal (NORMAL) 04/04/23 00:47 Ur Leukocyte Esterase Negative (NEGATIVE) 04/04/23 00:47 SARS-CoV-2 (PCR) Negative (NEGATIVE) 04/04/23 02:20 Influenza Type A (PCR) Negative (NEGATIVE) 04/04/23 02:20 Influenza Type B (PCR) Negative (NEGATIVE) 04/04/23 02:20 RSV (PCR) Negative (NEGATIVE) 04/04/23 02:20 Review of Systems Constitutional: No Symptoms Reported Eyes: No Symptoms Reported ENT: No Symptoms Reported Respiratory: Cough and Shortness of Breath Cardiovascular: Chest Pain Gastrointestinal: No Symptoms Reported Genitourinary: No Symptoms Reported Musculoskeletal: Leg Pain Skin: No Symptoms Reported Neurological: No Symptoms Reported Physical Exam Vital Signs: Vital Signs Temperature 97.8 F Pulse Rate [Right Radial] 83 Pulse Rate 79 Pulse Rate 80 Pulse Rate 80 Pulse Rate 79 Pulse Rate 80 Pulse Rate 80 Pulse Rate 81 Respiratory Rate 20 Respiratory Rate 21 Respiratory Rate 20 Respiratory Rate 38 Respiratory Rate 23 Respiratory Rate 22 Respiratory Rate 30 Respiratory Rate 33 Blood Pressure [Left Arm] 147/78 Blood Pressure 126/61 Blood Pressure 126/61 Blood Pressure 177/103 O2 Sat by Pulse Oximetry 97 O2 Sat by Pulse Oximetry 97 O2 Sat by Pulse Oximetry 96 O2 Sat by Pulse Oximetry 94 O2 Sat by Pulse Oximetry 97 O2 Sat by Pulse Oximetry 95 O2 Sat by Pulse Oximetry 95 O2 Sat by Pulse Oximetry 99 Oriented: Normal Eyes: Normal Ear: Normal Nose: Normal Throat: Normal Respiratory: Diminished Throughout Cardiovascular: Normal and Edema : Normal Auscultation: Bowel Sounds: Normal Palpation: Normal Tenderness: Normal Skin: Normal Musculoskeletal: Normal Psychiatric: Normal Mood Description: Calm and Appropriate Affect: Normal Speech Pattern: Clear and Appropriate Assessment/Plan (1) Pneumonia: Qualifiers: Laterality: right Lung location: unspecified part of lung Pneumonia type: due to unspecified organism Qualified Code(s): J18.9 - Pneumonia, unspecified organism Status: Acute Plan: Will continue antibiotics. Repeat CXR in the morning. (2) Benign hypertension: Status: None (3) Uncontrolled type 2 diabetes mellitus: Qualifiers: Glycemic state: with hyperglycemia Qualified Code(s): E11.65 - Type 2 diabetes mellitus with hyperglycemia Status: Acute (4) CKD (chronic kidney disease) stage 3, GFR 30-59 ml/min: Status: Acute Review H&P Reviewed: Yes Patient was examined?: Yes
[2023-04-05 04:52] VITALS: O2SAT 98
[2023-04-05] MEDS: ZOSYN VIAL 4.5 GRAMS 4.5 G in NS 100 ML IV 100 ML IV SCH (05:12)
[2023-04-05 05:27] LABS: BASOPHILS # (AUTO) 0.1 X10^3/uL (0.0-0.1); BASOPHILS % (AUTO) 0.8 % (0.2-1.0); EOSINOPHILS # (AUTO) 0.1 x10^3/uL (0.0-0.2); EOSINOPHILS % (AUTO) 1.1 % (0.9-2.9); HEMOGLOBIN 11.6 g/dL (12.0-16.0); LYMPHOCYTES # (AUTO) 1.6 X10^3/uL (1.3-2.9); LYMPHOCYTES % (AUTO) 24.8 % (21.0-51.0); MEAN CORPUSCULAR HEMOGLOBIN 27.7 pg (27.0-34.0); MEAN CORPUSCULAR HGB CONC 33.1 g/dL (33.0-35.0); MEAN CORPUSCULAR VOLUME 83.6 fL (80.0-100.0); MEAN PLATELET VOLUME 7.8 fL (7.4-11.0); MONOCYTES # (AUTO) 0.5 x10^3/uL (0.3-0.8); NEUTROPHILS # (AUTO) 4.3 x10^3/uL (2.2-4.8); NEUTROPHILS % (AUTO) 65.3 % (42.0-75.0); PLATELET COUNT 397 X10^3/uL (150.0-450.0); RED BLOOD COUNT 4.18 X10^6/uL (3.5-5.4); RED CELL DISTRIBUTION WIDTH 15.4 % (11.6-16.5); WHITE BLOOD COUNT 6.6 X10^3/uL (3.6-10.0)
[2023-04-05] MEDS: NovoLIN R (or HumuLIN R) SUBCUT PRN (05:31)
[2023-04-05 05:39] LABS: ALBUMIN 2.8 g/dL (3.4-5.0); CALCIUM 9.2 mg/dL (8.5-10.1); CARBON DIOXIDE 28.8 mmol/L (21-32); COR CA(FOR HYPOALB) 10.2 mg/dL (8.5-10.1); CREATININE 1.73 mg/dL (0.55-1.02); MAGNESIUM 2.8 mg/dL (2.0-2.9); POTASSIUM 4.2 mmol/L (3.5-5.1); TOTAL PROTEIN 7.2 g/dL (6.4-8.2)
--- NOTE | 2023-04-05 07:40 | RAD ---
HISTORYPneumoniaSTUDYChest AP [id number]/2023FINDINGSHear t size is normal. Lindy are normal. Aorta is calcified. Lung arauz are clear. No pleural effusions are identified. Bony thorax is unremarkable.IMPRESSIONLungs clearElectronically signed by: VITALIY CHÁVEZ (Apr 05, 2023 07:39:01)
[2023-04-05] MEDS: PULMICORT NEB TX 0.5 MG NEB SCH (08:55)
[2023-04-05] MEDS: DUONEB 0.5 MG/3 MG (3 mL) NEB SCH (08:55)
[2023-04-05] MEDS: ZITHROMAX INJ 500 MG VIAL 500 MG in NS 250 ML IV 250 ML IV SCH (09:17)
[2023-04-05] MEDS: PROTONIX TAB 40 MG PO SCH (09:17)
[2023-04-05] MEDS: LOVENOX INJ 40 MG SYR SC SCH (09:17)
[2023-04-05 10:09] VITALS: BP 152/91; PULSE 116; RESP 18; TEMP 97.3
[2023-04-05] MEDS ORDERED: ZOSYN VIAL 3.375 GRAMS 3.375 G in NS 100 ML IV 100 ML IV SCH (14:00)
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
== END 2023-04-05 12:45 | disposition home or self-care (01) ==
LOC: SUPCPDRO → ER 22:14 → MED/SURG 22:14
PROVIDERS: ADMIT Internal Medicine; ATTEND Family Medicine
DX: J18.8 Other pneumonia, unspecified organism; E83.42 Hypomagnesemia; N18.30 Chronic kidney disease, stage 3 unspecified; I10 Essential (primary) hypertension; E11.65 Type 2 diabetes mellitus with hyperglycemia

== ENCOUNTER 2023-06-20 06:54 | Observation (INO) ==
--- NOTE | 2023-06-20 07:13 | DR.CP ---
HPI <Tom Arroyo - Last Filed: 06/20/23 07:13> Time Seen Time Seen by Provider: 06/20/23 07:10 PCP Primary Care Physician: marques byers Complaint Chief Complaint:: patient c/o of sharp chest pain in the middle of her chest more to the right radiating up to the right side of her neck states it started yesterday morning. Self Treatment fo Chief Complaint: nitro 0.4 aspirin 325 by ems COVID-19 Coronavirus risk:travel/contact w/high risk person: No Has patient experienced Coronavirus symptoms: No Reviewed Nurses Notes Review: Yes Source History Provided: Patient Mode of Arrival Mode of Arrival: Stretcher Timing Onset of Chief Complaint: 06/19/23 Came on: Gradually Duration Duration: Intermittent How lon Duration: Days Location Location of Chest Pain: Chest Context Onset: At rest Cardiac Risk Factors: HTN PE Risk Factors: None History of: Valve Disease Prehospital Care: Oxygen, SL Nitro and ASA Quality Quality: Burning Severity Severity: Mild Modifying Factors Worsens: Nothing Impoves: NTG Associated Signs and Symptoms Associated Signs and Symptoms: Palpitations PMH <Tom Arroyo - Last Filed: 06/20/23 07:13> PMH Past Medical History: Yes Past Medical History: Anemia, Arthritis, CVA, Depression, Diabetes, Dyslipidemia, GERD, Hypertension, Kidney Stones, Renal Disease and Sleep Apnea Past Medical History Comment: bad mitral valve Past Surgical History: Yes Surgical History: , Cholecystectomy and Ortho Surgery Family History History of Family Medical Conditions: Yes Family Medical History: Diabetes Mellitus and Hypertension Social History Does patient currently use any type of tobacco product: No Have you used tobacco products in the last 12 months: No Type of Tobacco Use: None Does any household member use tobacco: No Alcohol Use: None Do you use any recreational Drugs:: No Lives With: Family Lives Where: Home Travel Risk Coronavirus risk:travel/contact w/high risk person: No Has patient experienced Coronavirus symptoms: No Infectious screening In the last 2 months have you had wt loss of >10#?: NO Have you had fever, night sweats or hemotysis?: No Have you traveled outside the country in the last 6 months?: No Isolation: Standard ROS <Tom Arroyo - Last Filed: 06/20/23 07:13> Review of Systems Cardiovascular: See HPI and Chest Pain PE <Tom Arroyo - Last Filed: 06/20/23 07:13> Vitals Vitals: Vital Signs Temperature 97.9 F Pulse Rate 94 Pulse Rate 91 Pulse Rate 95 Pulse Rate 95 Pulse Rate 108 Pulse Rate 94 Pulse Rate 93 Pulse Rate 96 Pulse Rate 96 Pulse Rate 98 Pulse Rate 100 Pulse Rate 112 Respiratory Rate 20 Respiratory Rate 19 Respiratory Rate 28 Respiratory Rate 16 Respiratory Rate 18 Respiratory Rate 22 Respiratory Rate 17 Respiratory Rate 14 Respiratory Rate 13 Respiratory Rate 16 Respiratory Rate 15 Respiratory Rate 16 Blood Pressure 146/80 Blood Pressure 136/74 Blood Pressure 129/68 O2 Sat by Pulse Oximetry 97 O2 Sat by Pulse Oximetry 97 O2 Sat by Pulse Oximetry 96 O2 Sat by Pulse Oximetry 96 O2 Sat by Pulse Oximetry 98 O2 Sat by Pulse Oximetry 99 O2 Sat by Pulse Oximetry 100 O2 Sat by Pulse Oximetry 97 O2 Sat by Pulse Oximetry 100 O2 Sat by Pulse Oximetry 99 O2 Sat by Pulse Oximetry 98 General Limitations: No Limitations General Appearance: Alert and In No Apparent Distress Head Head Exam: Normal Inspection, Atraumatic and Normocephalic Eyes Eye exam: Normal Appearance, PERRL and EOMI ENT ENT Exam: Normal Exam Chest Chest Inspection: Normal Inspection and Symmetric Chest Wall Rise Respiratory Respiratory Exam: Normal Lung Sounds Bilat Cardiovascular Cardiovascular Exam: Normal Rhythm and Tachycardia Abdominal Exam Abdominal Exam: Normal Inspection, Normal Bowel Sounds and Soft Extremities Extremities Exam: Normal Inspection Back Back Exam: Normal Inspection Neurologic Neurological Exam: Alert, Oriented X3, CN II-XII Intact, Normal Gait and Reflexes Normal Psychiatric Psychiatric Exam: Normal Affect and Normal Mood Skin Skin Exam: Warm, Dry and Intact <Miguel Rossi - Last Filed: 06/20/23 10:59> Vitals Vitals: Vital Signs Temperature 97.9 F Pulse Rate 94 Pulse Rate 91 Pulse Rate 95 Pulse Rate 95 Pulse Rate 108 Pulse Rate 94 Pulse Rate 93 Pulse Rate 96 Pulse Rate 96 Pulse Rate 98 Pulse Rate 100 Pulse Rate 112 Respiratory Rate 20 Respiratory Rate 19 Respiratory Rate 28 Respiratory Rate 16 Respiratory Rate 18 Respiratory Rate 22 Respiratory Rate 17 Respiratory Rate 14 Respiratory Rate 13 Respiratory Rate 16 Respiratory Rate 15 Respiratory Rate 16 Blood Pressure 146/80 Blood Pressure 136/74 Blood Pressure 129/68 O2 Sat by Pulse Oximetry 97 O2 Sat by Pulse Oximetry 97 O2 Sat by Pulse Oximetry 96 O2 Sat by Pulse Oximetry 96 O2 Sat by Pulse Oximetry 98 O2 Sat by Pulse Oximetry 99 O2 Sat by Pulse Oximetry 100 O2 Sat by Pulse Oximetry 97 O2 Sat by Pulse Oximetry 100 O2 Sat by Pulse Oximetry 99 O2 Sat by Pulse Oximetry 98 <Miguel Flo - Last Filed: 06/20/23 10:59> Treatment Treatment: 68-year-old female presented with chest pain since yesterday AM. Seen initially by Dr. Arroyo work-up initiated. Patient signed over to me. EKG and chest x-ray unremarkable. Troponin is negative at 10. CBC, CMP overall acceptable except for elevated glucose of 449, patient is a diabetic. Will give 500 mL normal saline now, 8 units of regular insulin subcu, and check her urine. 0915 - U/A normal. Patient was given IV Ativan, 1 mg, history of anxiety. About the same, still some diffuse chest discomfort. Discussed with her attending, Dr. Alanis, will admit for observation with her chest pain and poorly controlled diabetes. ROR <Tom Arroyo - Last Filed: 06/20/23 07:13> Labs Reviewed 06/20/23 07:26 06/20/23 07:26 Laboratory: WBC 9.0 X10^3/uL (3.6-10.0) 06/20/23 07:26 RBC 4.83 X10^6/uL (3.5-5.4) 06/20/23 07:26 Hgb 12.8 g/dL (12.0-16.0) 06/20/23 07:26 Hct 40.4 % (36.0-47.0) 06/20/23 07:26 MCV 83.7 fL (80.0-100.0) 06/20/23 07:26 MCH 26.5 pg (27.0-34.0) L 06/20/23 07:26 MCHC 31.7 g/dL (33.0-35.0) L 06/20/23 07:26 RDW 16.4 % (11.6-16.5) 06/20/23 07:26 Plt Count 312 X10^3/uL (150.0-450.0) 06/20/23 07:26 MPV 8.6 fL (7.4-11.0) 06/20/23 07:26 Neut % (Auto) 54.6 % (42.0-75.0) 06/20/23 07:26 Lymph % (Auto) 35.6 % (21.0-51.0) 06/20/23 07:26 Rooks % (Auto) 8.3 % (0.0-13.0) 06/20/23 07:26 Eos % (Auto) 0.5 % (0.9-2.9) L 06/20/23 07:26 Baso % (Auto) 1.0 % (0.2-1.0) 06/20/23 07:26 Neut # (Auto) 4.9 x10^3/uL (2.2-4.8) H 06/20/23 07:26 Lymph # (Auto) 3.2 X10^3/uL (1.3-2.9) H 06/20/23 07:26 Rooks # (Auto) 0.7 x10^3/uL (0.3-0.8) 06/20/23 07:26 Eos # (Auto) 0.0 x10^3/uL (0.0-0.2) 06/20/23 07:26 Baso # (Auto) 0.1 X10^3/uL (0.0-0.1) 06/20/23 07:26 Absolute Nucleated RBC 0.1 /100WBC 06/20/23 07:26 Sodium 129 mmol/L (136-145) L 06/20/23 07:26 Corrected Sodium 137 mmol/L (136-145) 06/20/23 07:26 Potassium 3.7 mmol/L (3.5-5.1) 06/20/23 07:26 Chloride 90 mmol/L (98-107) L 06/20/23 07:26 Carbon Dioxide 29.2 mmol/L (21-32) 06/20/23 07:26 BUN 20 mg/dL (7-18) H 06/20/23 07:26 Creatinine 1.70 mg/dL (0.55-1.02) H 06/20/23 07:26 Est GFR (MDRD) Af Amer 38 (>60) L 06/20/23 07:26 Est GFR (MDRD) Non-Af 32 (>60) L 06/20/23 07:26 Glucose 449 mg/dL (65-99) H 06/20/23 07:26 Calcium 8.9 mg/dL (8.5-10.1) 06/20/23 07:26 Corrected Calcium 9.5 mg/dL (8.5-10.1) 06/20/23 07:26 Total Bilirubin 0.70 mg/dL (0.2-1.0) 06/20/23 07:26 AST 15 Units/L (15-37) 06/20/23 07:26 ALT 15 Units/L (12-78) 06/20/23 07:26 Alkaline Phosphatase 119 Units/L (46-116) H 06/20/23 07:26 Troponin I High Sens 10.4 ng/L (4.0-60.0) 06/20/23 07:26 Total Protein 7.4 g/dL (6.4-8.2) 06/20/23 07:26 Albumin 3.2 g/dL (3.4-5.0) L 06/20/23 07:26 Globulin 4.2 g/dL (2.5-4.5) 06/20/23 07:26 Albumin/Globulin Ratio 0.8 Ratio (1.1-2.1) L 06/20/23 07:26 Specimen Type Clean catch urine 06/20/23 08:36 Urine Color Straw (YELLOW) 06/20/23 08:36 Urine Appearance Clear (CLEAR) 06/20/23 08:36 Urine pH 5.0 (5.0 - 8.0) 06/20/23 08:36 Ur Specific [place] 1.015 (1.000-1.030) 06/20/23 08:36 Urine Protein 1+ (NEGATIVE) 06/20/23 08:36 Urine Glucose (UA) 4+ (NEGATIVE) 06/20/23 08:36 Urine Ketones 2+ (NEGATIVE) 06/20/23 08:36 Urine Blood Negative (NEGATIVE) 06/20/23 08:36 Urine Nitrite Negative (NEGATIVE) 06/20/23 08:36 Urine Bilirubin Negative (NEGATIVE) 06/20/23 08:36 Urine Urobilinogen Normal (NORMAL) 06/20/23 08:36 Ur Leukocyte Esterase Negative (NEGATIVE) 06/20/23 08:36 Urine RBC 0-2 /HPF (0-3) 06/20/23 08:36 Urine WBC 0-2 /HPF (0-5) 06/20/23 08:36 Ur Squamous Epith Cells Rare /HPF (NEGATIVE) 06/20/23 08:36 Urine Bacteria Trace /HPF (NEGATIVE) 06/20/23 08:36 Ur Culture Indicated? No/not indicated 06/20/23 08:36 <Miguel Rossi - Last Filed: 06/20/23 10:59> Labs Reviewed Laboratory: WBC 9.0 X10^3/uL (3.6-10.0) 06/20/23 07:26 RBC 4.83 X10^6/uL (3.5-5.4) 06/20/23 07:26 Hgb 12.8 g/dL (12.0-16.0) 06/20/23 07:26 Hct 40.4 % (36.0-47.0) 06/20/23 07:26 MCV 83.7 fL (80.0-100.0) 06/20/23 07:26 MCH 26.5 pg (27.0-34.0) L 06/20/23 07:26 MCHC 31.7 g/dL (33.0-35.0) L 06/20/23 07:26 RDW 16.4 % (11.6-16.5) 06/20/23 07:26 Plt Count 312 X10^3/uL (150.0-450.0) 06/20/23 07:26 MPV 8.6 fL (7.4-11.0) 06/20/23 07:26 Neut % (Auto) 54.6 % (42.0-75.0) 06/20/23 07:26 Lymph % (Auto) 35.6 % (21.0-51.0) 06/20/23 07:26 Rooks % (Auto) 8.3 % (0.0-13.0) 06/20/23 07:26 Eos % (Auto) 0.5 % (0.9-2.9) L 06/20/23 07:26 Baso % (Auto) 1.0 % (0.2-1.0) 06/20/23 07:26 Neut # (Auto) 4.9 x10^3/uL (2.2-4.8) H 06/20/23 07:26 Lymph # (Auto) 3.2 X10^3/uL (1.3-2.9) H 06/20/23 07:26 Rooks # (Auto) 0.7 x10^3/uL (0.3-0.8) 06/20/23 07:26 Eos # (Auto) 0.0 x10^3/uL (0.0-0.2) 06/20/23 07:26 Baso # (Auto) 0.1 X10^3/uL (0.0-0.1) 06/20/23 07:26 Absolute Nucleated RBC 0.1 /100WBC 06/20/23 07:26 Sodium 129 mmol/L (136-145) L 06/20/23 07:26 Corrected Sodium 137 mmol/L (136-145) 06/20/23 07:26 Potassium 3.7 mmol/L (3.5-5.1) 06/20/23 07:26 Chloride 90 mmol/L (98-107) L 06/20/23 07:26 Carbon Dioxide 29.2 mmol/L (21-32) 06/20/23 07:26 BUN 20 mg/dL (7-18) H 06/20/23 07:26 Creatinine 1.70 mg/dL (0.55-1.02) H 06/20/23 07:26 Est GFR (MDRD) Af Amer 38 (>60) L 06/20/23 07:26 Est GFR (MDRD) Non-Af 32 (>60) L 06/20/23 07:26 Glucose 449 mg/dL (65-99) H 06/20/23 07:26 Calcium 8.9 mg/dL (8.5-10.1) 06/20/23 07:26 Corrected Calcium 9.5 mg/dL (8.5-10.1) 06/20/23 07:26 Total Bilirubin 0.70 mg/dL (0.2-1.0) 06/20/23 07:26 AST 15 Units/L (15-37) 06/20/23 07:26 ALT 15 Units/L (12-78) 06/20/23 07:26 Alkaline Phosphatase 119 Units/L (46-116) H 06/20/23 07:26 Troponin I High Sens 10.4 ng/L (4.0-60.0) 06/20/23 07:26 Total Protein 7.4 g/dL (6.4-8.2) 06/20/23 07:26 Albumin 3.2 g/dL (3.4-5.0) L 06/20/23 07:26 Globulin 4.2 g/dL (2.5-4.5) 06/20/23 07:26 Albumin/Globulin Ratio 0.8 Ratio (1.1-2.1) L 06/20/23 07:26 Specimen Type Clean catch urine 06/20/23 08:36 Urine Color Straw (YELLOW) 06/20/23 08:36 Urine Appearance Clear (CLEAR) 06/20/23 08:36 Urine pH 5.0 (5.0 - 8.0) 06/20/23 08:36 Ur Specific [place] 1.015 (1.000-1.030) 06/20/23 08:36 Urine Protein 1+ (NEGATIVE) 06/20/23 08:36 Urine Glucose (UA) 4+ (NEGATIVE) 06/20/23 08:36 Urine Ketones 2+ (NEGATIVE) 06/20/23 08:36 Urine Blood Negative (NEGATIVE) 06/20/23 08:36 Urine Nitrite Negative (NEGATIVE) 06/20/23 08:36 Urine Bilirubin Negative (NEGATIVE) 06/20/23 08:36 Urine Urobilinogen Normal (NORMAL) 06/20/23 08:36 Ur Leukocyte Esterase Negative (NEGATIVE) 06/20/23 08:36 Urine RBC 0-2 /HPF (0-3) 06/20/23 08:36 Urine WBC 0-2 /HPF (0-5) 06/20/23 08:36 Ur Squamous Epith Cells Rare /HPF (NEGATIVE) 06/20/23 08:36 Urine Bacteria Trace /HPF (NEGATIVE) 06/20/23 08:36 Ur Culture Indicated? No/not indicated 06/20/23 08:36 Opioid <Tom Arroyo - Last Filed: 06/20/23 07:13> Opioid Risk Tool Age (Shadi box if 16-45): No History of Preadolescent Sexual Abuse: No Total: 0 Total Score Risk Category: Low Risk Copyright: Franklin COSTA predicting aberrant behaviors <Miguel Rossi - Last Filed: 06/20/23 10:59> Opioid Risk Tool Total: 0 Total Score Risk Category: Low Risk Discharge Plan Diagnosis Discharge Problem: Chest pain, Poorly controlled diabetes mellitus Discharge Plan Patient Disposition: 09 ADMITTED INPATIENT Condition: Stable Orders to Discharge Patient Discharge Orders: Transfer (Routine); Ordered 06/20/23 Ordered By: Miguel Rossi
--- NOTE | 2023-06-20 07:29 | EKG ---
Test Reason : Chest pain Blood Pressure : */* mmHG Vent. Rate : 97 BPM Atrial Rate : 97 BPM P-R Int : 148 ms QRS Dur : 126 ms QT Int : 406 ms P-R-T Axes : 43 254 -4 degrees QTc Int : 515 ms Normal sinus rhythm Right bundle branch block Possible Lateral infarct , age undetermined Abnormal ECG When compared with ECG of 14-MAY-2023 12:38, No significant change was found Confirmed by Jose Elias Angulo MD ([id number]) on 06/20/2023 7:37:02 AM Referred By: Confirmed By: Jose Elias Angulo MD
[2023-06-20 07:33] LABS: BASOPHILS # (AUTO) 0.1 X10^3/uL (0.0-0.1); EOSINOPHILS % (AUTO) 0.5 % (0.9-2.9); HEMATOCRIT 40.4 % (36.0-47.0); HEMOGLOBIN 12.8 g/dL (12.0-16.0); LYMPHOCYTES # (AUTO) 3.2 X10^3/uL (1.3-2.9); LYMPHOCYTES % (AUTO) 35.6 % (21.0-51.0); MEAN CORPUSCULAR HEMOGLOBIN 26.5 pg (27.0-34.0); MEAN CORPUSCULAR HGB CONC 31.7 g/dL (33.0-35.0); MEAN CORPUSCULAR VOLUME 83.7 fL (80.0-100.0); MEAN PLATELET VOLUME 8.6 fL (7.4-11.0); MONOCYTES # (AUTO) 0.7 x10^3/uL (0.3-0.8); MONOCYTES % (AUTO) 8.3 % (0.0-13.0); NEUTROPHILS # (AUTO) 4.9 x10^3/uL (2.2-4.8); NEUTROPHILS % (AUTO) 54.6 % (42.0-75.0); PLATELET COUNT 312 X10^3/uL (150.0-450.0); RED BLOOD COUNT 4.83 X10^6/uL (3.5-5.4); RED CELL DISTRIBUTION WIDTH 16.4 % (11.6-16.5)
[2023-06-20 07:48] LABS: ALBUMIN 3.2 g/dL (3.4-5.0); CALCIUM 8.9 mg/dL (8.5-10.1); CARBON DIOXIDE 29.2 mmol/L (21-32); COR CA(FOR HYPOALB) 9.5 mg/dL (8.5-10.1); CREATININE 1.7 mg/dL (0.55-1.02); POTASSIUM 3.7 mmol/L (3.5-5.1); TOTAL PROTEIN 7.4 g/dL (6.4-8.2)
--- NOTE | 2023-06-20 07:51 | RAD ---
PROCEDURE: Chest X-ray 1 View .HISTORY: chest pain x 2 days .TECHNIQUE: AP portable upright done at 7:18 a.m..COMPARISON: 05/14/2023.TECHNICAL QUALITY: Satisfactory .FINDINGS:Normal size heart .Mediastinum and hilar regions show no masses or lymphadenopathy .Normal central vascularity .No pulmonary consolidation, masses, pleural fluid, or pneumothorax .No acute bony abnormality .IMPRESSION:No active cardiopulmonary disease .Electronically signed by: Glenn Mart (Jun 20, 2023 07:34:29)
[2023-06-20] MEDS ORDERED: NS 500 ML IV 500 ML IV ONE ×2 (08:24→08:28)
[2023-06-20] MEDS ORDERED: NovoLIN R (or HumuLIN R) SUBCUT STA (08:24)
[2023-06-20] MEDS ORDERED: NovoLIN R (or HumuLIN R) ONE ×2 (08:29→09:33)
[2023-06-20 08:44] LABS: BILIRUBIN,URINE NEGATIVE (NEGATIVE); BLOOD/HEMOGLOBIN,URINE NEGATIVE (NEGATIVE); GLUCOSE, URINE 4+ (NEGATIVE); KETONES,URINE 2+ (NEGATIVE); LEUKOCYTE ESTERASE ,URINE NEGATIVE (NEGATIVE); NITRITES,URINE NEGATIVE (NEGATIVE); PROTEIN,URINE 1+ (NEGATIVE); UROBILINOGEN,URINE NORMAL (NORMAL)
[2023-06-20] MEDS ORDERED: ATIVAN INJ 2 MG VIAL IVP STA (08:52)
[2023-06-20 08:54] LABS: APPEARANCE,URINE CLEAR (CLEAR); COLOR,URINE STRAW (YELLOW)
[2023-06-20] MEDS ORDERED: ATIVAN INJ 2 MG VIAL ONE (08:54)
[2023-06-20 08:55] LABS: BACTERIA,URINE TRACE /HPF (NEGATIVE); RBC,URINE 0-2 /HPF (0-3); SQUAMOUS EPITHELIAL CELL,UR RARE /HPF (NEGATIVE)
[2023-06-20] MEDS ORDERED: NovoLIN R (or HumuLIN R) SC PRN (09:52)
[2023-06-20] MEDS ORDERED: CONSULT PHARMACY - POTASSIUM & MAGNESIUM XX SCH (11:00)
[2023-06-20 11:05] VITALS: BMI 33.7
--- NOTE | 2023-06-20 14:39 | DR.CONSULT ---
CONSULT Consultation for Day of: Date: 06/20/23 Chief Complaint Chief Complaint: feels bad/cold/cp Allergies Allergies Allergy/AdvReac Type Severity Reaction Status Date / Time codeine Allergy Unknown Verified 05/28/23 14:37 Iodinated Contrast Media Allergy Unknown Verified 05/28/23 14:37 [IVP DYE] tetanus toxoid, adsorbed Allergy Unknown Verified 05/28/23 14:37 walnut Allergy Unknown Verified 05/28/23 14:37 iodine Allergy Verified 05/28/23 14:37 shrimp Allergy Verified 05/28/23 14:37 tetanus immune globulin Allergy Verified 05/28/23 14:37 History of Present Illness History of Present Illness: 68 yo female- states shes felt bad for years , minimal activity- states heart caths > 10 years ago with cad but no stents/bypass- can do much due to sob- gets cp lasts day- came to hosp for feeling bad/cold/tired/cp for day/so- ekg: nsr rbbb/lafb/loss of lat r wave but no change from previous or acute st changes- labs to note: wbc 9 hct 40-cr 1.7 ( 1.1 few months ago, na 129, glu 300-400,alb 3.2, trop 1 negative, cxr: nad , not on statin ( lipids 2020: TC 167/hdl 69/tg 99 /ldl est< 100) Past Medical History Past Medical History: Anemia, Arthritis, CVA, Depression, Diabetes, Dyslipidemia, GERD, Hypertension, Kidney Stones, Renal Disease and Sleep Apnea Additional Medical History: Fibromyalgia, Degenerative Disc Disease Past Surgical History Surgical History: Cholecystectomy and Other Family History Family Medical History: Diabetes Mellitus and Hypertension Social History Does patient currently use any type of tobacco product: No Have you used tobacco products in the last 12 months: No Type of Tobacco Use: None Does any household member use tobacco: No Alcohol Use: None Drug Use: None Medications Home Medications: codeine Allergy (Unknown, Verified 05/28/23 14:37) Iodinated Contrast Media [IVP DYE] Allergy (Unknown, Verified 05/28/23 14:37) tetanus toxoid, adsorbed Allergy (Unknown, Verified 05/28/23 14:37) walnut Allergy (Unknown, Verified 05/28/23 14:37) iodine Allergy (Verified 05/28/23 14:37) shrimp Allergy (Verified 05/28/23 14:37) tetanus immune globulin Allergy (Verified 05/28/23 14:37) CONTINUE taking the following medications amitriptyline 25 mg tablet 25 mg PO QPM 06/20/23 [History] celecoxib 200 mg capsule 200 mg PO QDAY 06/20/23 [History] empagliflozin 25 mg tablet (Jardiance) 25 mg PO QDAY 06/20/23 [History] fluoxetine 10 mg capsule 10 mg PO QDAY 06/20/23 [History] gabapentin 800 mg tablet 800 mg PO TID 06/20/23 [History] glipizide 10 mg tablet, extended release 24 hr 10 mg PO DAILY 06/20/23 [History] hydrochlorothiazide 25 mg tablet 25 mg PO DAILY 06/20/23 [History] insulin detemir U-100 100 unit/mL (3 mL) subcutaneous pen (Levemir FlexPen) unit subcut 06/20/23 [History] lorazepam 1 mg tablet 1 mg PO TID 06/20/23 [History] metoprolol succinate 50 mg tablet,extended release 24 hr 50 mg PO DAILY 06/20/23 [History] pantoprazole 40 mg tablet,delayed release 40 mg PO QDAY 06/20/23 [History] pen needle, diabetic 31 gauge x 1/4" (Pentips) 06/20/23 [History] quetiapine 50 mg tablet 50 mg PO QPM 06/20/23 [History] ropinirole 0.5 mg tablet 0.5 mg PO QPM 06/20/23 [History] venlafaxine 150 mg capsule,extended release 24 hr 150 mg PO QDAY 06/20/23 [History] Physical Exam Vital Signs: Vital Signs Temperature 98.3 F Temperature 97.9 F Pulse Rate [Left Radial] 97 Pulse Rate 97 Pulse Rate 97 Pulse Rate 98 Pulse Rate 94 Pulse Rate 91 Pulse Rate 95 Pulse Rate 95 Pulse Rate 108 Pulse Rate 94 Pulse Rate 93 Pulse Rate 96 Pulse Rate 96 Pulse Rate 98 Pulse Rate 100 Pulse Rate 112 Respiratory Rate 20 Respiratory Rate 19 Respiratory Rate 24 Respiratory Rate 28 Respiratory Rate 20 Respiratory Rate 19 Respiratory Rate 28 Respiratory Rate 16 Respiratory Rate 18 Respiratory Rate 22 Respiratory Rate 17 Respiratory Rate 14 Respiratory Rate 13 Respiratory Rate 16 Respiratory Rate 15 Respiratory Rate 16 Blood Pressure [Left Arm] 108/55 Blood Pressure 122/74 Blood Pressure 139/67 Blood Pressure 146/80 Blood Pressure 136/74 Blood Pressure 129/68 O2 Sat by Pulse Oximetry 94 O2 Sat by Pulse Oximetry 98 O2 Sat by Pulse Oximetry 98 O2 Sat by Pulse Oximetry 97 O2 Sat by Pulse Oximetry 97 O2 Sat by Pulse Oximetry 96 O2 Sat by Pulse Oximetry 96 O2 Sat by Pulse Oximetry 98 O2 Sat by Pulse Oximetry 99 O2 Sat by Pulse Oximetry 100 O2 Sat by Pulse Oximetry 97 O2 Sat by Pulse Oximetry 100 O2 Sat by Pulse Oximetry 99 O2 Sat by Pulse Oximetry 98 alert ox3 appears depressed soft L bruit clear lungs ghislaine rrr mild edema L dp pulse less than R Plan (1) Chest pain: Status: Acute Narrative Support Text: r/o mi by pan patel echo- lexiscan in near future unless trops positive (2) Poorly controlled diabetes mellitus: Status: Acute (3) Adjustment disorder with mixed anxiety and depressed mood: Status: Acute (4) Carotid bruit: Status: Acute Narrative Support Text: check doppler (5) Low serum albumin: Status: Acute (6) RILEY (dyspnea on exertion): Status: Acute Narrative Support Text: echo/lexiscan in future (7) Renal insufficiency: Status: Acute Narrative Support Text: volume to help glucoses/cr
[2023-06-20] MEDS: NEURONTIN CAP 400 MG PO SCH ×2 (14:46→21:10)
[2023-06-20] MEDS: ATIVAN TAB 1 MG PO SCH ×2 (14:46→21:10)
[2023-06-20 15:04] LABS: CHOL/HDL RATIO 4.4 (0.0-5.0); TSH (3RD GENERATION) 0.716 uIU/mL (0.358-3.74)
[2023-06-20] MEDS: NovoLIN R (or HumuLIN R) SUBCUT PRN ×2 (17:32→20:25)
[2023-06-20] MEDS ORDERED: SNACK - Diabetic Appropriate PO SCH ×2 (20:00)
[2023-06-20] MEDS ORDERED: ELAVIL PO SCH (21:00)
[2023-06-20] MEDS ORDERED: SEROquel TAB 25 mg PO SCH (21:00)
[2023-06-20] MEDS ORDERED: REQUIP PO SCH (21:00)
[2023-06-21] MEDS: ATIVAN TAB 1 MG PO SCH ×2 (05:40→13:33)
[2023-06-21] MEDS: NEURONTIN CAP 400 MG PO SCH ×2 (05:41→13:33)
[2023-06-21 06:13] LABS: BASOPHILS # (AUTO) 0.1 X10^3/uL (0.0-0.1); BASOPHILS % (AUTO) 0.8 % (0.2-1.0); EOSINOPHILS # (AUTO) 0.1 x10^3/uL (0.0-0.2); EOSINOPHILS % (AUTO) 1.4 % (0.9-2.9); HEMATOCRIT 39.1 % (36.0-47.0); HEMOGLOBIN 12.5 g/dL (12.0-16.0); LYMPHOCYTES # (AUTO) 3.3 X10^3/uL (1.3-2.9); LYMPHOCYTES % (AUTO) 40.6 % (21.0-51.0); MEAN CORPUSCULAR HEMOGLOBIN 26.3 pg (27.0-34.0); MEAN CORPUSCULAR HGB CONC 32.1 g/dL (33.0-35.0); MEAN CORPUSCULAR VOLUME 82.2 fL (80.0-100.0); MEAN PLATELET VOLUME 8.9 fL (7.4-11.0); MONOCYTES # (AUTO) 0.8 x10^3/uL (0.3-0.8); MONOCYTES % (AUTO) 9.6 % (0.0-13.0); NEUTROPHILS # (AUTO) 3.9 x10^3/uL (2.2-4.8); NEUTROPHILS % (AUTO) 47.6 % (42.0-75.0); PLATELET COUNT 286 X10^3/uL (150.0-450.0); RED BLOOD COUNT 4.75 X10^6/uL (3.5-5.4); RED CELL DISTRIBUTION WIDTH 16.4 % (11.6-16.5); WHITE BLOOD COUNT 8.2 X10^3/uL (3.6-10.0)
[2023-06-21 06:19] LABS: ALBUMIN 2.7 g/dL (3.4-5.0); CREATININE 1.32 mg/dL (0.55-1.02); POTASSIUM 3.3 mmol/L (3.5-5.1); TOTAL PROTEIN 6.7 g/dL (6.4-8.2)
[2023-06-21] MEDS ORDERED: CONSULT PHARMACY - POTASSIUM & MAGNESIUM XX SCH (07:00)
[2023-06-21] MEDS: K-DUR TAB 20 MEQ PO SCH ×2 (08:48→10:40)
[2023-06-21] MEDS: MAG-OX TAB PO SCH ×2 (08:48→10:00)
[2023-06-21] MEDS ORDERED: EFFEXOR XR 150 MG CAP 24-HR PO SCH (09:00)
[2023-06-21] MEDS ORDERED: TOPROL XL PO SCH (09:00)
[2023-06-21] MEDS ORDERED: ASPIRIN 81 MG CHEWTAB PO SCH (09:00)
[2023-06-21] MEDS ORDERED: PROTONIX TAB 40 MG PO SCH (09:00)
[2023-06-21] MEDS ORDERED: FARXIGA PO SCH (09:00)
[2023-06-21] MEDS ORDERED: PROzac PO SCH (09:00)
[2023-06-21] MEDS ORDERED: CELEBREX PO SCH (09:00)
[2023-06-21] MEDS ORDERED: GLUCOTROL XL 24-HR PO SCH (09:00)
[2023-06-21] MEDS ORDERED: HYDROCHLOROTHIAZIDE 25 MG TAB PO SCH (09:00)
[2023-06-21] MEDS: NovoLIN R (or HumuLIN R) SUBCUT PRN ×2 (11:34→14:38)
[2023-06-21] MEDS ORDERED: NS 1,000 ML IV 1,000 ML IV ONE (14:15)
[2023-06-21 16:20] VITALS: BP 120/72; PULSE 96; RESP 18; TEMP 97.2; O2SAT 97
--- NOTE | 2023-06-24 09:00 | DR.SSS ---
SHORT STAY SUMMARY Admission Date Date of Admission: 06/20/23 Discharge Date Discharge Date: 06/21/23 Admission Diagnoses Admission Diagnoses: chest pain rule out Discharge Diagnoses Discharge Diagnoses: chest pain rule out Chief Complaint Chief Complaint: chest pain History of Present Illness History of Present Illness: Patient is a 68-year-old female presenting with chest pain for the past day. She reports that her pain was intermittent lasting just a few seconds. Labs/imaging: WBC 8.2, hemoglobin 12.5, platelets 286, sodium 135, potassium 3.3, creatinine 1.32, glucose 174, troponin negative x3, UA negative. Cardiology was consulted. Recommend outpatient stress test, otherwise stable from a cardiac standpoint. Ultrasound of the carotids no significant stenosis. On exam patient no longer has symptoms they appear to be resolved. She does have poor compliance with her diabetes medications and insulin. Will increase her Levemir to 50 units twice daily. Strongly recommend that she take her medications as prescribed. She will follow-up with cardiology outpatient. Follow-up with PCP in 1 week. Past Medical History Past Medical History: Anemia, Arthritis, CVA, Depression, Diabetes, Dyslipidemia, GERD, Hypertension, Kidney Stones, Renal Disease and Sleep Apnea Additional Medical History: Fibromyalgia, Degenerative Disc Disease Past Surgical History Surgical History: Cholecystectomy and Other Allergies Allergies Allergy/AdvReac Type Severity Reaction Status Date / Time codeine Allergy Unknown Verified 05/28/23 14:37 Iodinated Contrast Media Allergy Unknown Verified 05/28/23 14:37 [IVP DYE] tetanus toxoid, adsorbed Allergy Unknown Verified 05/28/23 14:37 walnut Allergy Unknown Verified 05/28/23 14:37 iodine Allergy Verified 05/28/23 14:37 shrimp Allergy Verified 05/28/23 14:37 tetanus immune globulin Allergy Verified 05/28/23 14:37 Medications Home Medications: codeine Allergy (Unknown, Verified 05/28/23 14:37) Iodinated Contrast Media [IVP DYE] Allergy (Unknown, Verified 05/28/23 14:37) tetanus toxoid, adsorbed Allergy (Unknown, Verified 05/28/23 14:37) walnut Allergy (Unknown, Verified 05/28/23 14:37) iodine Allergy (Verified 05/28/23 14:37) shrimp Allergy (Verified 05/28/23 14:37) tetanus immune globulin Allergy (Verified 05/28/23 14:37) CONTINUE taking the following medications amitriptyline 25 mg tablet 25 mg PO QPM 06/20/23 [History] celecoxib 200 mg capsule 200 mg PO QDAY 06/20/23 [History] empagliflozin 25 mg tablet (Jardiance) 25 mg PO QDAY 06/20/23 [History] fluoxetine 10 mg capsule 10 mg PO QDAY 06/20/23 [History] gabapentin 800 mg tablet 800 mg PO TID 06/20/23 [History] glipizide 10 mg tablet, extended release 24 hr 10 mg PO DAILY 06/20/23 [History] hydrochlorothiazide 25 mg tablet 25 mg PO DAILY 06/20/23 [History] insulin detemir U-100 100 unit/mL (3 mL) subcutaneous pen (Levemir FlexPen) unit subcut 06/20/23 [History] lorazepam 1 mg tablet 1 mg PO TID 06/20/23 [History] metoprolol succinate 50 mg tablet,extended release 24 hr 50 mg PO DAILY 06/20/23 [History] pantoprazole 40 mg tablet,delayed release 40 mg PO QDAY 06/20/23 [History] pen needle, diabetic 31 gauge x 1/4" (Pentips) 06/20/23 [History] quetiapine 50 mg tablet 50 mg PO QPM 06/20/23 [History] ropinirole 0.5 mg tablet 0.5 mg PO QPM 06/20/23 [History] venlafaxine 150 mg capsule,extended release 24 hr 150 mg PO QDAY 06/20/23 [History] Family History Family Medical History: Diabetes Mellitus and Hypertension Social History Does patient currently use any type of tobacco product: No Have you used tobacco products in the last 12 months: No Type of Tobacco Use: None Does any household member use tobacco: No Alcohol Use: None Drug Use: None Review of Systems Constitutional: No Symptoms Reported Eyes: No Symptoms Reported ENT: No Symptoms Reported Respiratory: No Symptoms Reported Cardiovascular: No Symptoms Reported Gastrointestinal: No Symptoms Reported Musculoskeletal: No Symptoms Reported Skin: No Symptoms Reported Neurological: No Symptoms Reported Physical Exam Vital Signs: Last Vital Signs Temp 97.9 F 06/21/23 04:00 Pulse 99 H 06/21/23 04:00 Resp 16 06/21/23 04:00 BP 126/71 06/21/23 04:00 Pulse Ox 94 L 06/21/23 04:00 O2 Del Method Room Air 11/17/23 07:09 O2 Flow Rate 2 06/20/23 08:45 FiO2 21 04/05/23 08:55 Oriented: Normal Eyes: Normal Ear: Normal Nose: Normal Respiratory: Clear Throughout Cardiovascular: Normal : Normal Auscultation: Bowel Sounds: Normal Tenderness: Normal Skin: Normal Musculoskeletal: Normal Psychiatric: Normal Speech Pattern: Clear Labs Labs: Laboratory Last Values WBC 8.2 X10^3/uL (3.6-10.0) 06/21/23 05:07 RBC 4.75 X10^6/uL (3.5-5.4) 06/21/23 05:07 Hgb 12.5 g/dL (12.0-16.0) 06/21/23 05:07 Hct 39.1 % (36.0-47.0) 06/21/23 05:07 MCV 82.2 fL (80.0-100.0) 06/21/23 05:07 MCH 26.3 pg (27.0-34.0) L 06/21/23 05:07 MCHC 32.1 g/dL (33.0-35.0) L 06/21/23 05:07 RDW 16.4 % (11.6-16.5) 06/21/23 05:07 Plt Count 286 X10^3/uL (150.0-450.0) 06/21/23 05:07 MPV 8.9 fL (7.4-11.0) 06/21/23 05:07 Neut % (Auto) 47.6 % (42.0-75.0) 06/21/23 05:07 Lymph % (Auto) 40.6 % (21.0-51.0) 06/21/23 05:07 [place] % (Auto) 9.6 % (0.0-13.0) 06/21/23 05:07 Eos % (Auto) 1.4 % (0.9-2.9) 06/21/23 05:07 Baso % (Auto) 0.8 % (0.2-1.0) 06/21/23 05:07 Neut # (Auto) 3.9 x10^3/uL (2.2-4.8) 06/21/23 05:07 Lymph # (Auto) 3.3 X10^3/uL (1.3-2.9) H 06/21/23 05:07 [place] # (Auto) 0.8 x10^3/uL (0.3-0.8) 06/21/23 05:07 Eos # (Auto) 0.1 x10^3/uL (0.0-0.2) 06/21/23 05:07 Baso # (Auto) 0.1 X10^3/uL (0.0-0.1) 06/21/23 05:07 Absolute Nucleated RBC 0.1 /100WBC 06/21/23 05:07 Sodium 135 mmol/L (136-145) L 06/21/23 05:07 Corrected Sodium 137 mmol/L (136-145) 06/21/23 05:07 Potassium 3.3 mmol/L (3.5-5.1) L 06/21/23 05:07 Chloride 97 mmol/L (98-107) L 06/21/23 05:07 Carbon Dioxide 30.0 mmol/L (21-32) 06/21/23 05:07 BUN 27 mg/dL (7-18) H 06/21/23 05:07 Creatinine 1.32 mg/dL (0.55-1.02) H 06/21/23 05:07 Est GFR (MDRD) Af Amer 51 (>60) L 06/21/23 05:07 Est GFR (MDRD) Non-Af 42 (>60) L 06/21/23 05:07 Glucose 174 mg/dL (65-99) H 06/21/23 05:07 POC Glucose (mg/dL) 176 mg/dL (65-99) H 06/21/23 05:04 Calcium 9.0 mg/dL (8.5-10.1) 06/21/23 05:07 Corrected Calcium 10.0 mg/dL (8.5-10.1) 06/21/23 05:07 Magnesium 1.9 mg/dL (2.0-2.9) L 06/21/23 05:07 Total Bilirubin 0.40 mg/dL (0.2-1.0) 06/21/23 05:07 AST 14 Units/L (15-37) L 06/21/23 05:07 ALT 14 Units/L (12-78) 06/21/23 05:07 Alkaline Phosphatase 99 Units/L (46-116) 06/21/23 05:07 Troponin I High Sens 9.2 ng/L (4.0-60.0) 06/20/23 19:14 Total Protein 6.7 g/dL (6.4-8.2) 06/21/23 05:07 Albumin 2.7 g/dL (3.4-5.0) L 06/21/23 05:07 Globulin 4.0 g/dL (2.5-4.5) 06/21/23 05:07 Albumin/Globulin Ratio 0.7 Ratio (1.1-2.1) L 06/21/23 05:07 Triglycerides 201 mg/dL (0-150) H 06/20/23 13:59 Cholesterol 278 mg/dL (0-200) H 06/20/23 13:59 LDL Cholesterol, Calc 175 mg/dL (0-100) H 06/20/23 13:59 HDL Cholesterol 63 mg/dL (40-60) H 06/20/23 13:59 Cholesterol/HDL Ratio 4.4 (0.0-5.0) 06/20/23 13:59 TSH 3rd Generation 0.716 uIU/mL (0.358-3.74) 06/20/23 13:59 Specimen Type Clean catch urine 06/20/23 08:36 Urine Color Straw (YELLOW) 06/20/23 08:36 Urine Appearance Clear (CLEAR) 06/20/23 08:36 Urine pH 5.0 (5.0 - 8.0) 06/20/23 08:36 Ur Specific [place] 1.015 (1.000-1.030) 06/20/23 08:36 Urine Protein 1+ (NEGATIVE) 06/20/23 08:36 Urine Glucose (UA) 4+ (NEGATIVE) 06/20/23 08:36 Urine Ketones 2+ (NEGATIVE) 06/20/23 08:36 Urine Blood Negative (NEGATIVE) 06/20/23 08:36 Urine Nitrite Negative (NEGATIVE) 06/20/23 08:36 Urine Bilirubin Negative (NEGATIVE) 06/20/23 08:36 Urine Urobilinogen Normal (NORMAL) 06/20/23 08:36 Ur Leukocyte Esterase Negative (NEGATIVE) 06/20/23 08:36 Urine RBC 0-2 /HPF (0-3) 06/20/23 08:36 Urine WBC 0-2 /HPF (0-5) 06/20/23 08:36 Ur Squamous Epith Cells Rare /HPF (NEGATIVE) 06/20/23 08:36 Urine Bacteria Trace /HPF (NEGATIVE) 06/20/23 08:36 Ur Culture Indicated? No/not indicated 06/20/23 08:36 Assessment/Plan (1) Chest pain: (2) Poorly controlled diabetes mellitus: (3) Adjustment disorder with mixed anxiety and depressed mood: (4) Carotid bruit: (5) Low serum albumin: (6) RILEY (dyspnea on exertion): (7) Renal insufficiency: Hospital Course Hospital Course: Patient is a 68-year-old female presenting with chest pain for the past day. She reports that her pain was intermittent lasting just a few seconds. Labs/imaging: WBC 8.2, hemoglobin 12.5, platelets 286, sodium 135, potassium 3.3, creatinine 1.32, glucose 174, troponin negative x3, UA negative. Cardiology was consulted. Recommend outpatient stress test, otherwise stable from a cardiac standpoint. Ultrasound of the carotids no significant stenosis. On exam patient no longer has symptoms they appear to be resolved. She does have poor compliance with her diabetes medications and insulin. Will increase her Levemir to 50 units twice daily. Strongly recommend that she take her medications as prescribed. She will follow-up with cardiology outpatient. Follow-up with PCP in 1 week. Discharge Medications Discharge Medications: Home Medication List amitriptyline 25 mg tablet 25 mg PO QPM 06/20/23 [History] celecoxib 200 mg capsule 200 mg PO QDAY 06/20/23 [History] empagliflozin 25 mg tablet (Jardiance) 25 mg PO QDAY 06/20/23 [History] fluoxetine 10 mg capsule 10 mg PO QDAY 06/20/23 [History] gabapentin 800 mg tablet 800 mg PO TID 06/20/23 [History] glipizide 10 mg tablet, extended release 24 hr 10 mg PO DAILY 06/20/23 [History] hydrochlorothiazide 25 mg tablet 25 mg PO DAILY 06/20/23 [History] insulin detemir U-100 100 unit/mL (3 mL) subcutaneous pen (Levemir FlexPen) unit subcut 06/20/23 [History] lorazepam 1 mg tablet 1 mg PO TID 06/20/23 [History] metoprolol succinate 50 mg tablet,extended release 24 hr 50 mg PO DAILY 06/20/23 [History] pantoprazole 40 mg tablet,delayed release 40 mg PO QDAY 06/20/23 [History] pen needle, diabetic 31 gauge x 1/4" (Pentips) 06/20/23 [History] quetiapine 50 mg tablet 50 mg PO QPM 06/20/23 [History] ropinirole 0.5 mg tablet 0.5 mg PO QPM 06/20/23 [History] venlafaxine 150 mg capsule,extended release 24 hr 150 mg PO QDAY 06/20/23 [History] Prescriptions: Discharge Disposition Discharge Disposition: Home Discharge Plan Discharge Plan Patient Disposition: , SELF-CARE Condition: Stable Health Concerns: Post Hospitalization: new medications and changes needed to prevent readmission or further decline. Pt educated and given instructions on all concerns. Care Plan Goals: Problem: Chest Pain Goals: Chest pain improving/resolved Instructions: Contact your physician or report to the closest Emergency Department if your chest pain returns or worsens. Take medications as prescribed. Follow up with your primary doctor as instructed. Plan of Treatment: Continue with present treatment and follow up plan. Pt is to keep follow up appointment as instructed and take medications as ordered. Assessment: No acute distress noted at discharge. Prescriptions: New Levemir FlexPen 100 unit/mL (3 mL) Insulin Pen 50 unit SUBCUT BID Qty: 1 0RF Continued (DME) pen needle, diabetic [UltiCare Pen Needle] 31 gauge x 1/4" needle MISCELLANEOUS Qty: 50 1RF Patient Comments: [NO ORIGINAL SIG] Rx Instructions: use two times daily celecoxib 200 mg capsule 200 mg PO QDAY metoprolol succinate 50 mg tablet extended release 24 hr 50 mg PO DAILY venlafaxine 150 mg capsule,extended release 24hr 150 mg PO QDAY amitriptyline 25 mg tablet 25 mg PO QPM gabapentin 800 mg tablet 800 mg PO TID pantoprazole 40 mg tablet,delayed release (DR/EC) 40 mg PO QDAY ropinirole 0.5 mg tablet 0.5 mg PO QPM fluoxetine 10 mg capsule 10 mg PO QDAY hydrochlorothiazide 25 mg tablet 25 mg PO DAILY lorazepam 1 mg tablet 1 mg PO TID (DME) pen needle, diabetic [Pentips] 31 gauge x 1/4" needle MISCELLANEOUS Patient Comments: [NO ORIGINAL SIG] Jardiance 25 mg tablet 25 mg PO QDAY glipizide 10 mg tablet extended release 24hr 10 mg PO DAILY quetiapine 50 mg tablet 50 mg PO QPM Discontinued Levemir FlexPen 100 unit/mL (3 mL) insulin pen SUBCUT Patient Comments: [NO ORIGINAL SIG] Orders to Discharge Patient Discharge Orders: Discharge (Routine); Ordered 06/21/23 Ordered By: Joshua Alanis Follow ups/Referrals Follow ups/Referrals: Joshua Alanis [Primary Care Provider] - 06/25/23 11:20 am ANETA TANG [STAFF PHYSICIAN] - 06/25/23 1:20 pm Instructions Instructions: Preventing Hypoglycemia, Diabetes Mellitus and Sick Day Management, Nonspecific Chest Pain, Hyperglycemia, [id number], Blood Glucose Monitoring, Adult, Angina, [id number] Stand Alone Forms: Post Hospital Follow Up Care
== END 2023-06-21 16:18 | disposition home or self-care (01) ==
LOC: MED/SURG 06:54 → ER 06:54 → MED/SURG 10:16
PROVIDERS: ADMIT Family Medicine; ATTEND Family Medicine
DX: I10 Essential (primary) hypertension; E78.2 Mixed hyperlipidemia; E83.42 Hypomagnesemia; N28.89 Other specified disorders of kidney and ureter; R07.89 Other chest pain; R06.02 Shortness of breath; K21.9 Gastro-esophageal reflux disease without esophagitis

== ENCOUNTER 2024-03-04 15:59 | Observation (INO) ==
--- NOTE | 2024-03-04 16:17 | DR.EXTPAIN ---
HPI Time seen Time Seen by Provider: 03/04/24 16:17 Complaint/Symptoms Chief Complaint Doctor Comments: 68-year-old female brought in by EMS for evaluation. Patient states she slid off her bed, and landed on her buttocks, 3 days ago. She has been having worsening pain of the low back, pelvis, bilateral leg region ever since. Denies head injury, loss of consciousness or neck pain. Has a history of chronic low back pain already. Pain worse with movement, standing. Nothing makes it better. Denies fever, chills, URI symptoms, chest pain, shortness of breath, bowel or bladder issues. Patient trying to establish with a local MD. Nurses notes reviewed Nurses Notes Review: Yes Source History Provided: Patient and EMS Mode of arrival Mode of Arrival: EMS PMH PMH Past Medical History: Anemia, Anxiety, Arthritis, CHF, CVA, Depression, Diabetes, Headaches, Hypertension and Renal Disease Past Surgical History: Yes Surgical History: and Ortho Surgery Family History Family Medical History: Diabetes Mellitus, Cancer, [place], Coronary Artery Disease, Heart Failure and Hypertension Social History Have you used tobacco products in the last 12 months: No Alcohol Use: None Do you use any recreational Drugs:: No ROS Review of Systems Constitutional: Weakness Eyes: No Symptoms Reported ENTM: No Symptoms Reported Respiratoy: No Symptoms Reported Cardiovascular: No Symptoms Reported Gastrointestinal/Abdominal: No Symptoms Reported Genitourinary: No Symptoms Reported Neurological: Weakness Musculoskeletal: See HPI Integumentary: No Symptoms Reported All Other Systems: Reviewed and Negative PE Vital Signs Vitals: Vital Signs Temperature 98.5 F Pulse Rate [Left] 79 Pulse Rate 88 Respiratory Rate 18 Respiratory Rate 20 Respiratory Rate 16 Respiratory Rate 16 Blood Pressure [Left Arm] 123/86 Blood Pressure 113/78 O2 Sat by Pulse Oximetry 100 O2 Sat by Pulse Oximetry 96 General General Appearance: Alert and In No Apparent Distress Head Head Exam: Normal Inspection, Atraumatic and Normocephalic Eyes Eye exam: PERRL and EOMI Neck Neck Exam: Normal Inspection Respiratory Respiratory Exam: Normal Lung Sounds Bilat; negative Accessory Muscle Use or Respiratory Distress Cardiovascular Cardiovascular Exam: Regular Rate, Normal Rhythm and Normal Heart Sounds Abdominal Exam Abdominal Exam: Normal Bowel Sounds and Soft; negative Tenderness Extremities Extremities Exam: negative Edema Back Back Exam: Tenderness (across lumbar region.) Neurological Neurological Exam: Alert, Oriented X3 and CN II-XII Intact; negative Motor Sensory Deficit Skin Skin Exam: Warm and Dry Other Exam Other Exam: + tendernes bilateral hips, but has good ROM int/ext rotation. + tender bilateral thighs/tibias/fibulas. No obvious deformities. COURSE Treatment Treatment: 68-year-old female, fell 3 days ago. Having pain across her low back, bilateral legs. States she has been able to stand easily or bear weight since the fall.. Patient has a grandson who helps care for her. Workup initiated. Patient given IV fluids, IV morphine/[id number] -imaging studies unremarkable for acute abnormalities. No obvious fractures or dislocations of the hips/pelvis/legs. CT of the lumbar spine shows some disc bulging, no obvious acute fractures. CBC, CMP unremarkable. Urinalysis a bit off, concerning for degree of UTI. Patient given IV Rocephin.. Despite no obvious a cute fractures, patient unable to bear weight easily, care for herself at home. Patient expressed desire to be back in a [facility] to the nurses. Will discuss with the on-call provider to see about patient for failure to thrive, inability to stand. Patient states she is trying to establish with Dr. Alanis. Discussed with Dr Mercedes, accepts the admission. ROR Labs Reviewed Laboratory Results Reviewed?: Yes 03/04/24 16:46 03/04/24 16:46 Laboratory: WBC 11.0 X10^3/uL (3.6-10.0) H 03/04/24 16:46 RBC 4.72 X10^6/uL (3.5-5.4) 03/04/24 16:46 Hgb 11.6 g/dL (12.0-16.0) L 03/04/24 16:46 Hct 36.6 % (36.0-47.0) 03/04/24 16:46 MCV 77.6 fL (80.0-100.0) L 03/04/24 16:46 MCH 24.5 pg (27.0-34.0) L 03/04/24 16:46 MCHC 31.6 g/dL (33.0-35.0) L 03/04/24 16:46 RDW 19.4 % (11.6-16.5) H 03/04/24 16:46 Plt Count 666 X10^3/uL (150.0-450.0) H 03/04/24 16:46 MPV 7.7 fL (7.4-11.0) 03/04/24 16:46 Neut % (Auto) 57.7 % (42.0-75.0) 03/04/24 16:46 Lymph % (Auto) 34.0 % (21.0-51.0) 03/04/24 16:46 [place] % (Auto) 6.2 % (0.0-13.0) 03/04/24 16:46 Eos % (Auto) 1.8 % (0.9-2.9) 03/04/24 16:46 Baso % (Auto) 0.3 % (0.2-1.0) 03/04/24 16:46 Neut # (Auto) 6.3 x10^3/uL (2.2-4.8) H 03/04/24 16:46 Lymph # (Auto) 3.7 X10^3/uL (1.3-2.9) H 03/04/24 16:46 [place] # (Auto) 0.7 x10^3/uL (0.3-0.8) 03/04/24 16:46 Eos # (Auto) 0.2 x10^3/uL (0.0-0.2) 03/04/24 16:46 Baso # (Auto) 0.0 X10^3/uL (0.0-0.1) 03/04/24 16:46 Absolute Nucleated RBC 0.1 /100WBC 03/04/24 16:46 Sodium 135 mmol/L (136-145) L 03/04/24 16:46 Corrected Sodium 138 mmol/L (136-145) 03/04/24 16:46 Potassium 4.1 mmol/L (3.5-5.1) 03/04/24 16:46 Chloride 96 mmol/L (98-107) L 03/04/24 16:46 Carbon Dioxide 31.0 mmol/L (21-32) 03/04/24 16:46 BUN 40 mg/dL (7-18) H 03/04/24 16:46 Creatinine 1.43 mg/dL (0.55-1.02) H 03/04/24 16:46 Est GFR (MDRD) Af Amer 47 (>60) L 03/04/24 16:46 Est GFR (MDRD) Non-Af 39 (>60) L 03/04/24 16:46 Glucose 217 mg/dL (65-99) H 03/04/24 16:46 Calcium 9.7 mg/dL (8.5-10.1) 03/04/24 16:46 Corrected Calcium 10.7 mg/dL (8.5-10.1) H 03/04/24 16:46 Total Bilirubin 0.30 mg/dL (0.2-1.0) 03/04/24 16:46 AST 19 Units/L (15-37) 03/04/24 16:46 ALT 9 Units/L (12-78) L 03/04/24 16:46 Alkaline Phosphatase 91 Units/L (46-116) 03/04/24 16:46 Total Protein 7.8 g/dL (6.4-8.2) 03/04/24 16:46 Albumin 2.7 g/dL (3.4-5.0) L 03/04/24 16:46 Globulin 5.1 g/dL (2.5-4.5) H 03/04/24 16:46 Albumin/Globulin Ratio 0.5 Ratio (1.1-2.1) L 03/04/24 16:46 Lipase 87 Units/L (16-77) H 03/04/24 16:46 Specimen Type Clean catch urine 03/04/24 16:39 Urine Color Pale yellow (YELLOW) 03/04/24 16:39 Urine Appearance Clear (CLEAR) 03/04/24 16:39 Urine pH 6.5 (5.0 - 8.0) 03/04/24 16:39 Ur Specific [place] 1.010 (1.000-1.030) 03/04/24 16:39 Urine Protein Negative (NEGATIVE) 03/04/24 16:39 Urine Glucose (UA) 4+ (NEGATIVE) 03/04/24 16:39 Urine Ketones Negative (NEGATIVE) 03/04/24 16:39 Urine Blood Negative (NEGATIVE) 03/04/24 16:39 Urine Nitrite Negative (NEGATIVE) 03/04/24 16:39 Urine Bilirubin Negative (NEGATIVE) 03/04/24 16:39 Urine Urobilinogen Normal (NORMAL) 03/04/24 16:39 Ur Leukocyte Esterase 1+ (NEGATIVE) 03/04/24 16:39 Urine RBC None seen /HPF (0-3) 03/04/24 16:39 Urine WBC 5-10 /HPF (0-5) A 03/04/24 16:39 Ur Squamous Epith Cells Moderate /HPF (NEGATIVE) 03/04/24 16:39 Urine Bacteria 1+ /HPF (NEGATIVE) 03/04/24 16:39 Ur Culture Indicated? Yes/culture set up 03/04/24 16:39 Probable UTI (U/A a bit dirty) XRAY XRAY Interpreted by: Both X-ray Results: CT of the lumbar spine with chronic disc disease, no obvious fractures or dislocations of x-rays. Opioid Opioid Risk Tool Age (Shadi box if 16-45): No History of Preadolescent Sexual Abuse: No Total: 0 Total Score Risk Category: Low Risk Copyright: Reid predicting aberrant behaviors Discharge Plan Diagnosis Discharge Problem: Failure to thrive, Status post fall, Inability to bear weight Discharge Plan Patient Disposition: 09 ADMITTED INPATIENT Condition: Stable Prescriptions: No Action (DME) pen needle, diabetic [UltiCare Pen Needle] 31 gauge x 1/4" needle MISCELLANEOUS Qty: 50 1RF Patient Comments: [NO ORIGINAL SIG] Rx Instructions: use two times daily furosemide 20 mg tablet 20 mg PO DAILY Jardiance 25 mg tablet 25 mg PO DAILY celecoxib 200 mg capsule 200 mg PO QDAY metoprolol succinate 50 mg tablet extended release 24 hr 50 mg PO DAILY amitriptyline 25 mg tablet 25 mg PO QPM gabapentin 800 mg tablet 600 mg PO BID pantoprazole 40 mg tablet,delayed release (DR/EC) 40 mg PO QDAY ropinirole 0.5 mg tablet 0.5 mg PO QPM hydrochlorothiazide 25 mg tablet 25 mg PO DAILY lorazepam 1 mg tablet 0.5 mg PO BID PRN (DME) pen needle, diabetic [Pentips] 31 gauge x 1/4" needle MISCELLANEOUS Patient Comments: [NO ORIGINAL SIG] glipizide 10 mg tablet extended release 24hr 10 mg PO DAILY Levemir FlexPen 100 unit/mL (3 mL) Insulin Pen 50 unit SUBCUT BID Qty: 1 0RF insulin lispro [Humalog KwikPen Insulin] 100 unit/mL Insulin Pen 100 unit SUBCUT DIRECTED tramadol 50 mg Tablet 50 mg PO Q6H PRN (Reason: Pain) sertraline 50 mg Tablet 50 mg PO DAILY trazodone 100 mg Tablet 100 mg PO HS sennosides-docusate sodium [Senna-S] 8.6-50 mg Tablet 1 tab PO BID PRN (Reason: Constipation) Health Concerns: Post Hospitalization: new medications and changes needed to prevent readmission or further decline. Pt educated and given instructions on all concerns. Plan of Treatment: Continue with present treatment and follow up plan. Pt is to keep follow up appointment as instructed and take medications as ordered. Orders to Discharge Patient Discharge Orders: Transfer (Routine); Ordered 03/04/24 Ordered By: Miguel Rossi Follow ups/Referrals Follow ups/Referrals: [facility],None [Primary Care Provider] - 3 days
[2024-03-04] MEDS: ZOFRAN INJ 4 MG VIAL IVP ONE (16:52)
[2024-03-04] MEDS: MORPHINE SULFATE INJ 4 MG IVP ONE (16:55)
[2024-03-04] MEDS: NS 500 ML IV 500 ML IV ONE (16:59)
[2024-03-04 17:04] LABS: APPEARANCE,URINE CLEAR (CLEAR); BILIRUBIN,URINE NEGATIVE (NEGATIVE); BLOOD/HEMOGLOBIN,URINE NEGATIVE (NEGATIVE); COLOR,URINE PALE YELLOW (YELLOW); GLUCOSE, URINE 4+ (NEGATIVE); KETONES,URINE NEGATIVE (NEGATIVE); LEUKOCYTE ESTERASE ,URINE 1+ (NEGATIVE); NITRITES,URINE NEGATIVE (NEGATIVE); PH,URINE 6.5 (5.0 - 8.0); PROTEIN,URINE NEGATIVE (NEGATIVE); UROBILINOGEN,URINE NORMAL (NORMAL)
[2024-03-04 17:05] LABS: EOSINOPHILS # (AUTO) 0.2 x10^3/uL (0.0-0.2); LYMPHOCYTES # (AUTO) 3.7 X10^3/uL (1.3-2.9); MONOCYTES # (AUTO) 0.7 x10^3/uL (0.3-0.8); RED CELL DISTRIBUTION WIDTH 19.4 % (11.6-16.5)
[2024-03-04 17:07] LABS: RBC,URINE NONE SEEN /HPF (0-3)
[2024-03-04 17:08] LABS: ALBUMIN 2.7 g/dL (3.4-5.0); CALCIUM 9.7 mg/dL (8.5-10.1); COR CA(FOR HYPOALB) 10.7 mg/dL (8.5-10.1); CREATININE 1.43 mg/dL (0.55-1.02); POTASSIUM 4.1 mmol/L (3.5-5.1); TOTAL PROTEIN 7.8 g/dL (6.4-8.2)
[2024-03-04 17:08] LABS: BACTERIA,URINE 1+ /HPF (NEGATIVE); SQUAMOUS EPITHELIAL CELL,UR MODERATE /HPF (NEGATIVE)
[2024-03-04 17:09] LABS: BASOPHILS % (AUTO) 0.3 % (0.2-1.0); EOSINOPHILS % (AUTO) 1.8 % (0.9-2.9); HEMATOCRIT 36.6 % (36.0-47.0); HEMOGLOBIN 11.6 g/dL (12.0-16.0); MEAN CORPUSCULAR HEMOGLOBIN 24.5 pg (27.0-34.0); MEAN CORPUSCULAR HGB CONC 31.6 g/dL (33.0-35.0); MEAN CORPUSCULAR VOLUME 77.6 fL (80.0-100.0); MEAN PLATELET VOLUME 7.7 fL (7.4-11.0); MONOCYTES % (AUTO) 6.2 % (0.0-13.0); NEUTROPHILS # (AUTO) 6.3 x10^3/uL (2.2-4.8); NEUTROPHILS % (AUTO) 57.7 % (42.0-75.0); PLATELET COUNT 666 X10^3/uL (150.0-450.0); RED BLOOD COUNT 4.72 X10^6/uL (3.5-5.4)
[2024-03-04] MEDS: ROCEPHIN VIAL 1 GRAM IVP ONE (17:46)
--- NOTE | 2024-03-04 17:59 | CT ---
EXAM:LUMBAR SPINE W/O CONHISTORY:she fell on Saturday or Saturday and since then she has had bilateral hip pain that radiates down into both legs.;COMPARISON:None.TECHNIQUE:Nonenhan linus spiral CT imaging was performed through the lumbar spine and axial, coronal, and sagittal CT images were generated.FINDINGS:There is subtle retrolisthesis of L1 on L2. The alignment is otherwise anatomic. There is no vertebral compression fracture there is severe disc degeneration at L1-L2 and to a lesser extent at other levels. There is multilevel facet hypertrophy but no fracture of the posterior elements. There is no significant spinal stenosis. On the right side there is moderate L5 neural foraminal narrowing. On the left side there is mild neural foraminal narrowing.IMPRESSION:Degeneration but nothing acute.THIS IS AN ELECTRONICALLY VERIFIED FINAL REPORT03/04/2024 5:56 PM - Electronically signed by Ziggy Salomon MD
[2024-03-04] MEDS ORDERED: CONSULT PHARMACY - POTASSIUM & MAGNESIUM XX SCH (19:59)
[2024-03-04] MEDS ORDERED: SENNOSIDES DOCUSATE SODIUM PO PRN (19:59)
[2024-03-04] MEDS ORDERED: ATIVAN TAB 1 MG PO PRN (19:59)
[2024-03-04 20:51] VITALS: BMI 32.8
[2024-03-04] MEDS: NEURONTIN TAB 600 MG PO SCH (20:51)
[2024-03-04] MEDS: DESYREL PO SCH (20:51)
[2024-03-04] MEDS ORDERED: HumaLOG SC PRN (20:52)
[2024-03-04] MEDS: REQUIP PO SCH (20:52)
[2024-03-04] MEDS: ELAVIL PO SCH (20:52)
[2024-03-04] MEDS: LEVEMIR SC SCH (20:53)
[2024-03-04] MEDS: ULTRAM PO PRN (23:08)
[2024-03-05 05:26] LABS: BASOPHILS # (AUTO) 0.1 X10^3/uL (0.0-0.1); BASOPHILS % (AUTO) 0.7 % (0.2-1.0); EOSINOPHILS # (AUTO) 0.2 x10^3/uL (0.0-0.2); EOSINOPHILS % (AUTO) 2.6 % (0.9-2.9); HEMATOCRIT 36.1 % (36.0-47.0); HEMOGLOBIN 11.1 g/dL (12.0-16.0); LYMPHOCYTES # (AUTO) 3.4 X10^3/uL (1.3-2.9); LYMPHOCYTES % (AUTO) 39.9 % (21.0-51.0); MEAN CORPUSCULAR HEMOGLOBIN 24.2 pg (27.0-34.0); MEAN CORPUSCULAR HGB CONC 30.8 g/dL (33.0-35.0); MEAN CORPUSCULAR VOLUME 78.6 fL (80.0-100.0); MEAN PLATELET VOLUME 7.5 fL (7.4-11.0); MONOCYTES # (AUTO) 0.8 x10^3/uL (0.3-0.8); MONOCYTES % (AUTO) 9.7 % (0.0-13.0); NEUTROPHILS % (AUTO) 47.1 % (42.0-75.0); PLATELET COUNT 628 X10^3/uL (150.0-450.0); RED BLOOD COUNT 4.59 X10^6/uL (3.5-5.4); RED CELL DISTRIBUTION WIDTH 19.5 % (11.6-16.5); WHITE BLOOD COUNT 8.4 X10^3/uL (3.6-10.0)
[2024-03-05 05:41] LABS: ALBUMIN 2.5 g/dL (3.4-5.0); CALCIUM 9.5 mg/dL (8.5-10.1); CARBON DIOXIDE 33.8 mmol/L (21-32); COR CA(FOR HYPOALB) 10.7 mg/dL (8.5-10.1); CREATININE 1.55 mg/dL (0.55-1.02); POTASSIUM 3.4 mmol/L (3.5-5.1); TOTAL PROTEIN 7.3 g/dL (6.4-8.2)
[2024-03-05] MEDS: GLUCOTROL XL 24-HR PO SCH (06:13)
[2024-03-05] MEDS: K-DUR TAB 20 MEQ PO SCH (06:19)
[2024-03-05] MEDS ORDERED: CONSULT PHARMACY - POTASSIUM & MAGNESIUM XX SCH (07:00)
[2024-03-05] MEDS: HYDROCHLOROTHIAZIDE 25 MG TAB PO SCH (09:06)
[2024-03-05] MEDS: TOPROL XL PO SCH (09:06)
[2024-03-05] MEDS: LASIX PO SCH (09:07)
[2024-03-05] MEDS: CELEBREX PO SCH (09:07)
[2024-03-05] MEDS: ZOLOFT PO SCH (09:07)
[2024-03-05] MEDS: FARXIGA PO SCH (09:07)
[2024-03-05] MEDS: PROTONIX TAB 40 MG PO SCH (09:59)
[2024-03-05] MEDS: MAGNESIUM SULFATE 1 GRAM/100 mL PREMIX 1 G/100 ML BAG IV SCH (10:02)
--- NOTE | 2024-03-05 10:18 | RAD ---
EXAMINATION: LOWER LEG, TIB/FIB RIGHT HISTORY: she fell on Saturday or Saturday and since then she has had bilateral hip pain that radiates down into enmanuel th legs.; . COMPARISON STUDY: None. TECHNIQUE: Two views right tibia fibula FINDINGS: The osseous structures appear intact. No evidence of fracture or dislocation. Mild degenerative rusty nges of the knee. IMPRESSION: No acute bony process seen. THIS IS AN ELECTRONICALLY VERIFIED FINAL REPORT 03/05/2024 10:06 AM - Electronically signed by Maricruz Ford MD
--- NOTE | 2024-03-05 10:18 | RAD ---
EXAMINATION: FEMUR, RIGHT HISTORY: she fell on Saturday or Saturday and since then she has had bilateral hip pain that radiates down into enmanuel th legs.; . COMPARISON STUDY: None. TECHNIQUE: Four views right femur FINDINGS: The osseous structures appear intact. Soft tissue outlines appear normal. IMPRESSION: No acute bony process seen about the right femur. THIS IS AN ELECTRONICALLY VERIFIED FINAL REPORT 03/05/2024 10:06 AM - Electronically signed by Maricruz Ford MD
--- NOTE | 2024-03-05 10:18 | RAD ---
EXAMINATION: PELVIS HISTORY: she fell on Saturday or Saturday and since then she has had bilateral hip pain that radiates down into enmanuel th legs.; . COMPARISON STUDY: 07/06/2021 TECHNIQUE: One view of the pelvis was obtained. FINDINGS: There is normal mineralization and mild osteoarthritic changes in both hips. There is no evidence of fracture or dislocation. Sacral arcuate lines are preserved. Pelvic soft tissues are unremarkable. Degenerative disc disease at the lumbosacral junction. No osteolytic or osteoblastic lesions. No radiopaque foreign body IMPRESSION: No acute findings. THIS IS AN ELECTRONICALLY VERIFIED FINAL REPORT 03/05/2024 10:06 AM - Electronically signed by Fredo Goodson MD
--- NOTE | 2024-03-05 10:18 | RAD ---
EXAMINATION: FEMUR, LEFT HISTORY: she fell on Saturday or Saturday and since then she has had bilateral hip pain that radiates down into enmanuel th legs.; . COMPARISON STUDY: None. TECHNIQUE: Four views left femur FINDINGS: The osseous structures appear intact. Soft tissue outlines appear normal. IMPRESSION: No acute bony process seen about the left femur. THIS IS AN ELECTRONICALLY VERIFIED FINAL REPORT 03/05/2024 10:05 AM - Electronically signed by Maricruz Ford MD
--- NOTE | 2024-03-05 10:18 | RAD ---
EXAMINATION: LOWER LEG, TIB/FIB LEFT HISTORY: she fell on Saturday or Saturday and since then she has had bilateral hip pain that radiates down into enmanuel th legs.; . COMPARISON STUDY: None. TECHNIQUE: 2 views of the left tibia/fibula were obtained. FINDINGS: There is normal mineralization and moderate osteoarthritic change about the knee and ankle. There is no fracture, dislocation, or radiopaque foreign body. Soft tissues are unremarkable.Spurring along the insertion of the Achilles tendon IMPRESSION: NO ACUTE BONY PROCESS. THIS IS AN ELECTRONICALLY VERIFIED FINAL REPORT 03/05/2024 10:04 AM - Electronically signed by Fredo Goodson MD
[2024-03-05] MEDS: NovoLIN R (or HumuLIN R) SUBCUT PRN (11:13)
--- NOTE | 2024-03-05 11:37 | DR.H&P ---
H&P History & Physical for Day of: H&P Date: 03/05/24 Chief Complaint Chief Complaint: Generalized weakness History of Present Illness History of Present Illness: Patient is a 68-year-old female that presented after having a fall 3 days ago and feeling weak after. She reports having difficulty ambulating due to her weakness. Labs/imaging: WBC 8.4, hemoglobin 11.1, platelets 628, sodium 139, potassium 3.4, creatinine 1.55, glucose 170, magnesium 1.5, UA positive, urine culture pending, CT of the lumbar did not show any acute fractures or findings. Patient was admitted for acute cystitis and generalized weakness. She was started on IV antibiotics Rocephin. Electrolyte imbalances, will replete per protocol. Will restart home medications. Otherwise continue with current treatment plan. Continue to closely monitor and follow-up labs in the morning. Past Medical History Past Medical History: Anemia, Anxiety, Arthritis, CHF, CVA, Depression, Diabetes, Headaches, Hypertension and Renal Disease Additional Medical History: Fibromyalgia, Degenerative Disc Disease Past Surgical History Surgical History: Cholecystectomy Family History Family Medical History: Diabetes Mellitus, [place] and Heart Failure Social History Does patient currently use any type of tobacco product: No Have you used tobacco products in the last 12 months: No Type of Tobacco Use: None Does any household member use tobacco: No Alcohol Use: None Drug Use: None Medications Home Medications: Home Medications Medication Instructions Recorded Confirmed Type amitriptyline 25 mg tablet 25 mg PO QPM 06/20/23 03/04/24 History celecoxib 200 mg capsule 200 mg PO QDAY 06/20/23 03/04/24 History gabapentin 800 mg tablet 600 mg PO BID 06/20/23 03/04/24 History glipizide 10 mg tablet, extended 10 mg PO DAILY 06/20/23 03/04/24 History release 24 hr hydrochlorothiazide 25 mg tablet 25 mg PO DAILY 06/20/23 03/04/24 History lorazepam 1 mg tablet 0.5 mg PO BID PRN 06/20/23 03/04/24 History metoprolol succinate 50 mg 50 mg PO DAILY 06/20/23 03/04/24 History tablet,extended release 24 hr pantoprazole 40 mg tablet,delayed 40 mg PO QDAY 06/20/23 03/04/24 History release pen needle, diabetic 31 gauge x 06/20/23 03/04/24 History 1/4" (Pentips) ropinirole 0.5 mg tablet 0.5 mg PO QPM 06/20/23 03/04/24 History empagliflozin 25 mg tablet 25 mg PO DAILY 07/04/23 03/04/24 History (Jardiance) furosemide 20 mg tablet 20 mg PO DAILY 07/04/23 03/04/24 History insulin lispro 100 unit/mL 100 unit subcut DIRECTED 01/30/24 03/04/24 History subcutaneous pen (Humalog KwikPen (U-100) Insulin) sennosides 8.6 mg-docusate sodium 1 tab PO BID PRN Constipation 01/30/24 03/04/24 History 50 mg tablet (Senna-S) sertraline 50 mg tablet 50 mg PO DAILY 01/30/24 03/04/24 History tramadol 50 mg tablet 50 mg PO Q6H PRN Pain 01/30/24 03/04/24 History trazodone 100 mg tablet 100 mg PO HS 01/30/24 03/04/24 History Allergies Allergies Allergy/AdvReac Type Severity Reaction Status Date / Time codeine Allergy Unknown Verified 03/04/24 16:16 Iodinated Contrast Media Allergy Unknown Verified 03/04/24 16:16 [IVP DYE] tetanus toxoid, adsorbed Allergy Unknown Verified 03/04/24 16:16 walnut Allergy Unknown Verified 03/04/24 16:16 iodine Allergy Verified 03/04/24 16:16 shrimp Allergy Verified 03/04/24 16:16 tetanus immune globulin Allergy Verified 03/04/24 16:16 Labs 03/05/24 04:48 03/05/24 04:48 Labs: 03/04/24 16:39 Urine,Clean Catch Urine Culture - Preliminary Laboratory WBC 8.4 X10^3/uL (3.6-10.0) 03/05/24 04:48 RBC 4.59 X10^6/uL (3.5-5.4) 03/05/24 04:48 Hgb 11.1 g/dL (12.0-16.0) L 03/05/24 04:48 Hct 36.1 % (36.0-47.0) 03/05/24 04:48 MCV 78.6 fL (80.0-100.0) L 03/05/24 04:48 MCH 24.2 pg (27.0-34.0) L 03/05/24 04:48 MCHC 30.8 g/dL (33.0-35.0) L 03/05/24 04:48 RDW 19.5 % (11.6-16.5) H 03/05/24 04:48 Plt Count 628 X10^3/uL (150.0-450.0) H 03/05/24 04:48 MPV 7.5 fL (7.4-11.0) 03/05/24 04:48 Neut % (Auto) 47.1 % (42.0-75.0) 03/05/24 04:48 Lymph % (Auto) 39.9 % (21.0-51.0) 03/05/24 04:48 [place] % (Auto) 9.7 % (0.0-13.0) 03/05/24 04:48 Eos % (Auto) 2.6 % (0.9-2.9) 03/05/24 04:48 Baso % (Auto) 0.7 % (0.2-1.0) 03/05/24 04:48 Neut # (Auto) 4.0 x10^3/uL (2.2-4.8) 03/05/24 04:48 Lymph # (Auto) 3.4 X10^3/uL (1.3-2.9) H 03/05/24 04:48 [place] # (Auto) 0.8 x10^3/uL (0.3-0.8) 03/05/24 04:48 Eos # (Auto) 0.2 x10^3/uL (0.0-0.2) 03/05/24 04:48 Baso # (Auto) 0.1 X10^3/uL (0.0-0.1) 03/05/24 04:48 Absolute Nucleated RBC 0.2 /100WBC 03/05/24 04:48 Sodium 139 mmol/L (136-145) 03/05/24 04:48 Corrected Sodium 141 mmol/L (136-145) 03/05/24 04:48 Potassium 3.4 mmol/L (3.5-5.1) L 03/05/24 04:48 Chloride 97 mmol/L (98-107) L 03/05/24 04:48 Carbon Dioxide 33.8 mmol/L (21-32) H 03/05/24 04:48 BUN 40 mg/dL (7-18) H 03/05/24 04:48 Creatinine 1.55 mg/dL (0.55-1.02) H 03/05/24 04:48 Est GFR (MDRD) Af Amer 43 (>60) L 03/05/24 04:48 Est GFR (MDRD) Non-Af 35 (>60) L 03/05/24 04:48 Glucose 170 mg/dL (65-99) H 03/05/24 04:48 POC Glucose (mg/dL) 196 mg/dL (65-99) H 03/05/24 09:01 Calcium 9.5 mg/dL (8.5-10.1) 03/05/24 04:48 Corrected Calcium 10.7 mg/dL (8.5-10.1) H 03/05/24 04:48 Magnesium 1.5 mg/dL (2.0-2.9) L 03/05/24 04:48 Total Bilirubin 0.10 mg/dL (0.2-1.0) L 03/05/24 04:48 AST 12 Units/L (15-37) L 03/05/24 04:48 ALT 8 Units/L (12-78) L 03/05/24 04:48 Alkaline Phosphatase 82 Units/L (46-116) 03/05/24 04:48 Total Protein 7.3 g/dL (6.4-8.2) 03/05/24 04:48 Albumin 2.5 g/dL (3.4-5.0) L 03/05/24 04:48 Globulin 4.8 g/dL (2.5-4.5) H 03/05/24 04:48 Albumin/Globulin Ratio 0.5 Ratio (1.1-2.1) L 03/05/24 04:48 Lipase 87 Units/L (16-77) H 03/04/24 16:46 Specimen Type Clean catch urine 03/04/24 16:39 Urine Color Pale yellow (YELLOW) 03/04/24 16:39 Urine Appearance Clear (CLEAR) 03/04/24 16:39 Urine pH 6.5 (5.0 - 8.0) 03/04/24 16:39 Ur Specific [place] 1.010 (1.000-1.030) 03/04/24 16:39 Urine Protein Negative (NEGATIVE) 03/04/24 16:39 Urine Glucose (UA) 4+ (NEGATIVE) 03/04/24 16:39 Urine Ketones Negative (NEGATIVE) 03/04/24 16:39 Urine Blood Negative (NEGATIVE) 03/04/24 16:39 Urine Nitrite Negative (NEGATIVE) 03/04/24 16:39 Urine Bilirubin Negative (NEGATIVE) 03/04/24 16:39 Urine Urobilinogen Normal (NORMAL) 03/04/24 16:39 Ur Leukocyte Esterase 1+ (NEGATIVE) 03/04/24 16:39 Urine RBC None seen /HPF (0-3) 03/04/24 16:39 Urine WBC 5-10 /HPF (0-5) A 03/04/24 16:39 Ur Squamous Epith Cells Moderate /HPF (NEGATIVE) 03/04/24 16:39 Urine Bacteria 1+ /HPF (NEGATIVE) 03/04/24 16:39 Ur Culture Indicated? Yes/culture set up 03/04/24 16:39 Review of Systems Constitutional: Weakness Eyes: No Symptoms Reported ENT: No Symptoms Reported Respiratory: No Symptoms Reported Cardiovascular: No Symptoms Reported Gastrointestinal: No Symptoms Reported Genitourinary: No Symptoms Reported Musculoskeletal: Back Pain Skin: No Symptoms Reported Neurological: No Symptoms Reported Physical Exam Vital Signs: Vital Signs Temperature 97.2 F Temperature 97.9 F Pulse Rate [Left] 92 Pulse Rate [Left] 95 Respiratory Rate 18 Respiratory Rate 20 Blood Pressure [Left Arm] 122/70 Blood Pressure [Left Arm] 128/67 O2 Sat by Pulse Oximetry 94 O2 Sat by Pulse Oximetry 93 Oriented: Normal Eyes: Normal Ear: Normal Nose: Normal Throat: Normal Respiratory: Clear Throughout Cardiovascular: Normal : Normal Auscultation: Bowel Sounds: Normal Palpation: Normal Tenderness: Normal Skin: Normal Musculoskeletal: Normal Psychiatric: Normal Mood Description: Calm and Appropriate Affect: Normal Speech Pattern: Clear and Appropriate Assessment/Plan (1) Acute cystitis: Qualifiers: Hematuria presence: without hematuria Qualified Code(s): N30.00 - Acute cystitis without hematuria Status: Acute Plan: IV rocephin Urine culture pending (2) Generalized weakness: Status: Acute (3) Hypomagnesemia: Status: Acute Plan: Replete per protocol (4) Hypokalemia: Status: Acute Review H&P Reviewed: Yes Patient was examined?: Yes
[2024-03-05] MEDS: SENOKOT PO PRN (12:04)
[2024-03-05] MEDS: COLACE CAP 100 MG PO PRN (12:04)
[2024-03-05] MEDS ORDERED: ROCEPHIN VIAL 1 GRAM 1 G in NS 100 ML IV 100 ML IV SCH (12:30)
[2024-03-05] MEDS: ROCEPHIN VIAL 1 GRAM 1 G in NS 100 ML IV 100 ML IV SCH (12:44)
[2024-03-05] MEDS: NS 100 ML IV 100 ML ONE (12:44)
[2024-03-05] MEDS: SNACK - Diabetic Appropriate PO SCH ×2 (20:05)
[2024-03-06 06:29] LABS: BASOPHILS # (AUTO) 0.1 X10^3/uL (0.0-0.1); BASOPHILS % (AUTO) 1.1 % (0.2-1.0); EOSINOPHILS # (AUTO) 0.2 x10^3/uL (0.0-0.2); EOSINOPHILS % (AUTO) 2.1 % (0.9-2.9); HEMATOCRIT 36.6 % (36.0-47.0); HEMOGLOBIN 11.4 g/dL (12.0-16.0); LYMPHOCYTES # (AUTO) 3.2 X10^3/uL (1.3-2.9); LYMPHOCYTES % (AUTO) 34.7 % (21.0-51.0); MEAN CORPUSCULAR HEMOGLOBIN 24.2 pg (27.0-34.0); MEAN CORPUSCULAR HGB CONC 31.1 g/dL (33.0-35.0); MEAN CORPUSCULAR VOLUME 77.8 fL (80.0-100.0); MEAN PLATELET VOLUME 7.9 fL (7.4-11.0); MONOCYTES # (AUTO) 0.7 x10^3/uL (0.3-0.8); MONOCYTES % (AUTO) 7.2 % (0.0-13.0); NEUTROPHILS % (AUTO) 54.9 % (42.0-75.0); PLATELET COUNT 592 X10^3/uL (150.0-450.0); RED CELL DISTRIBUTION WIDTH 19.7 % (11.6-16.5); WHITE BLOOD COUNT 9.1 X10^3/uL (3.6-10.0)
[2024-03-06 06:53] LABS: ALBUMIN 2.7 g/dL (3.4-5.0); CARBON DIOXIDE 32.2 mmol/L (21-32); CREATININE 1.53 mg/dL (0.55-1.02); POTASSIUM 3.1 mmol/L (3.5-5.1); TOTAL PROTEIN 7.7 g/dL (6.4-8.2)
[2024-03-06] MEDS: CONSULT PHARMACY - POTASSIUM & MAGNESIUM XX SCH ×2 (07:42→07:43)
[2024-03-06 08:07] VITALS: BP 130/70; PULSE 98; RESP 18; TEMP 97.2; O2SAT 95
[2024-03-06] MEDS: K-DUR TAB 20 MEQ PO SCH (08:49)
[2024-03-06] MEDS: MAG-OX TAB PO SCH (08:50)
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
== END 2024-03-06 09:35 | disposition home health service (06) ==
LOC: ER 15:59 → MED/SURG 15:59
PROVIDERS: ADMIT Internal Medicine; ATTEND Family Medicine
DX: F41.8 Other specified anxiety disorders; E87.6 Hypokalemia; I10 Essential (primary) hypertension; Z91.81 History of falling; M25.552 Pain in left hip; M25.551 Pain in right hip; R53.1 Weakness; N30.00 Acute cystitis without hematuria; R26.89 Other abnormalities of gait and mobility; M79.604 Pain in right leg; E83.42 Hypomagnesemia; R62.7 Adult failure to thrive; B95.2 Enterococcus as the cause of diseases classified elsewhere; E11.65 Type 2 diabetes mellitus with hyperglycemia; M79.605 Pain in left leg; E87.1 Hypo-osmolality and hyponatremia; M54.59 Other low back pain

== ENCOUNTER 2024-03-29 19:51 | Observation (INO) ==
[2024-03-29 20:15] VITALS: BMI 33.7
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
[2024-03-29] MEDS: ULTRAM PO ONE (21:27)
[2024-03-29 23:55] LABS: BILIRUBIN,URINE NEGATIVE (NEGATIVE); BLOOD/HEMOGLOBIN,URINE NEGATIVE (NEGATIVE); GLUCOSE, URINE 4+ (NEGATIVE); KETONES,URINE 4+ (NEGATIVE); LEUKOCYTE ESTERASE ,URINE NEGATIVE (NEGATIVE); NITRITES,URINE NEGATIVE (NEGATIVE); PROTEIN,URINE 1+ (NEGATIVE); UROBILINOGEN,URINE NORMAL (NORMAL)
--- NOTE | 2024-03-30 | CT ---
EXAM: BRAIN W/O CON HISTORY: c/o lt rib pain x 4 days pt son Kenney states" I want her admitted or transferred out because she has been like this for a week she's having hallucinations see if that will get her admitted'; COMPARISON: 01/30/2024 TECHNIQUE: Multiple axial images of the head were performed from the skullbase to the vertex using standard depa rtmental protocol. Sagittal and coronal reformatted images were performed. Dose reduction techniques including Automated Exposure Control (AEC) and adjustment of mA and kV were utilized. FINDINGS: The sulci, cisterns and ventricles are age appropriate. Mild cortical atrophy compatible with patien t's age. There is no evidence of acute territorial infarction, hemorrhage, mass, mass effect or midl ine shift. There are no abnormal intra-axial or extra-axial fluid collections. The visualized paranas al sinuses and mastoid air cells are predominantly clear. IMPRESSION: Mild cortical atrophy. No acute intracranial pathology THIS IS AN ELECTRONICALLY VERIFIED FINAL REPORT 03/29/2024 11:56 PM - Electronically signed by Mani Deshpande MD
[2024-03-30 00:08] LABS: APPEARANCE,URINE CLEAR (CLEAR); BACTERIA,URINE TRACE /HPF (NEGATIVE); COLOR,URINE PALE YELLOW (YELLOW); RBC,URINE 0-2 /HPF (0-3); SQUAMOUS EPITHELIAL CELL,UR MODERATE /HPF (NEGATIVE); YEAST,URINE FEW /HPF (NEGATIVE)
--- NOTE | 2024-03-30 00:18 | CT ---
EXAM: CT CHEST WITHOUT CONTRAST HISTORY: Left chest pain COMPARISON: None. TECHNIQUE: Axial images were acquired of the chest without IV contrast. Sagittal and coronal reformatted images were provided. All images were reviewed in a variety of windows and levels. 3D MIPS were performed a nd reviewed. RADIATION REDUCTION TECHNIQUE: Automated exposure control, Adjustment of the mA and/or kV according t o patient size, or iterative reconstruction techniques were used. FINDINGS: CHEST: Please note that lack of IV contrast limits evaluation of soft tissue structures and vascular detail THYROID GLAND: The thyroid gland is grossly unremarkable. HEART AND VESSELS: The heart size is within normal limits. There is no evidence of a pericardial effu jaciel. The thoracic aorta is normal is size without evidence of an aneurysm. The main pulmonary artery size is within normal limits. LYMPHNODES: There is no evidence of axillary, mediastinal, or hilar lymphadenopathy. AIRWAY: The trachea and mainstem bronchi are patent. There are no intraluminal lesions seen. LUNGS: There is discoid atelectasis in the bilateral lower lung zones with bronchiectasis. No consol idation, pleural effusion, or pneumothorax is seen. ESOPHAGUS: The esophagus is grossly unremarkable. BONES: The visualized bones demonstrate degenerative changes. There are no concerning lytic or blasti c lesions identified. UPPER ABDOMINAL STRUCTURES: The visualized portions of the upper abdominal structures demonstrate pos toperative changes from cholecystectomy. IMPRESSION: No evidence of pneumothorax THIS IS AN ELECTRONICALLY VERIFIED FINAL REPORT 03/30/2024 12:14 AM - Electronically signed by Jose L Negrete MD
[2024-03-30] MEDS: ATIVAN TAB 0.5 MG PO ONE (00:38)
[2024-03-30 01:37] LABS: BASOPHILS # (AUTO) 0.1 X10^3/uL (0.0-0.1); EOSINOPHILS # (AUTO) 0.1 x10^3/uL (0.0-0.2); HEMATOCRIT 29.8 % (36.0-47.0); HEMOGLOBIN 9.1 g/dL (12.0-16.0); LYMPHOCYTES # (AUTO) 1.9 X10^3/uL (1.3-2.9); LYMPHOCYTES % (AUTO) 22.7 % (21.0-51.0); MEAN CORPUSCULAR HEMOGLOBIN 23.4 pg (27.0-34.0); MEAN CORPUSCULAR HGB CONC 30.6 g/dL (33.0-35.0); MEAN CORPUSCULAR VOLUME 76.5 fL (80.0-100.0); MEAN PLATELET VOLUME 7.3 fL (7.4-11.0); MONOCYTES # (AUTO) 0.7 x10^3/uL (0.3-0.8); MONOCYTES % (AUTO) 7.8 % (0.0-13.0); NEUTROPHILS # (AUTO) 5.7 x10^3/uL (2.2-4.8); NEUTROPHILS % (AUTO) 67.5 % (42.0-75.0); PLATELET COUNT 399 X10^3/uL (150.0-450.0); RED CELL DISTRIBUTION WIDTH 19.7 % (11.6-16.5); WHITE BLOOD COUNT 8.5 X10^3/uL (3.6-10.0)
[2024-03-30 01:59] LABS: ALANINE AMINOTRANSFERASE 14 Units/L (12-78); ALBUMIN 2.4 g/dL (3.4-5.0); ALKALINE PHOSPHATASE 96 Units/L (46-116); ASPARTATE AMINO TRANSFERASE 27 Units/L (15-37); BLOOD UREA NITROGEN 12 mg/dL (7-18); CALCIUM 9.2 mg/dL (8.5-10.1); CARBON DIOXIDE 24.6 mmol/L (21-32); CHLORIDE 101 mmol/L (98-107); COR CA(FOR HYPOALB) 10.5 mg/dL (8.5-10.1); COR NA(FOR HYPERGLY) 141 mmol/L (136-145); CREATININE 1.07 mg/dL (0.55-1.02); GLUCOSE 149 mg/dL (65-99); SODIUM 140 mmol/L (136-145); TOTAL PROTEIN 6.8 g/dL (6.4-8.2); eGFR NON BLACK RACES 54 (>60)
[2024-03-30 02:00] LABS: POTASSIUM 3.9 mmol/L (3.5-5.1)
[2024-03-30] MEDS: ULTRAM PO ONE (04:34)
[2024-03-30] MEDS ORDERED: INSULIN LISPRO INSULIN SUBCUT SCH (09:28)
[2024-03-30] MEDS ORDERED: [UNRECOGNIZED DRUG - OTHER] SUBCUT SCH (09:28)
[2024-03-30] MEDS: ATIVAN TAB 0.5 MG ONE (09:51)
[2024-03-30] MEDS: ULTRAM ONE (09:52)
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
[2024-03-30] MEDS: LYRICA CAP 75 mg PO SCH (10:58)
[2024-03-30] MEDS: HYDROCHLOROTHIAZIDE 25 MG TAB PO SCH (10:58)
[2024-03-30] MEDS: TOPROL XL PO SCH (10:58)
[2024-03-30] MEDS: LEVEMIR SC SCH (10:59)
[2024-03-30] MEDS: ZOLOFT PO SCH (11:02)
[2024-03-30] MEDS: ULTRAM PO PRN (11:34)
[2024-03-30] MEDS: FARXIGA PO SCH (13:55)
[2024-03-30] MEDS: D50W ABBOJECT SYR IV ONE (17:37)
[2024-03-30] MEDS: SNACK - Diabetic Appropriate PO SCH (19:49)
[2024-03-30] MEDS: REQUIP PO SCH (20:22)
[2024-03-30] MEDS: ELAVIL PO SCH (20:22)
[2024-03-31 05:14] LABS: BASOPHILS # (AUTO) 0.1 X10^3/uL (0.0-0.1); BASOPHILS % (AUTO) 0.7 % (0.2-1.0); EOSINOPHILS # (AUTO) 0.2 x10^3/uL (0.0-0.2); EOSINOPHILS % (AUTO) 2.8 % (0.9-2.9); HEMATOCRIT 32.5 % (36.0-47.0); HEMOGLOBIN 10.2 g/dL (12.0-16.0); LYMPHOCYTES # (AUTO) 2.1 X10^3/uL (1.3-2.9); LYMPHOCYTES % (AUTO) 24.2 % (21.0-51.0); MEAN CORPUSCULAR HEMOGLOBIN 23.4 pg (27.0-34.0); MEAN CORPUSCULAR HGB CONC 31.3 g/dL (33.0-35.0); MEAN CORPUSCULAR VOLUME 74.8 fL (80.0-100.0); MEAN PLATELET VOLUME 7.5 fL (7.4-11.0); MONOCYTES # (AUTO) 0.7 x10^3/uL (0.3-0.8); MONOCYTES % (AUTO) 8.4 % (0.0-13.0); NEUTROPHILS # (AUTO) 5.5 x10^3/uL (2.2-4.8); NEUTROPHILS % (AUTO) 63.9 % (42.0-75.0); PLATELET COUNT 451 X10^3/uL (150.0-450.0); RED BLOOD COUNT 4.34 X10^6/uL (3.5-5.4); RED CELL DISTRIBUTION WIDTH 19.7 % (11.6-16.5); WHITE BLOOD COUNT 8.6 X10^3/uL (3.6-10.0)
[2024-03-31 05:30] LABS: ANISOCYTOSIS SLIGHT; HYPOCHROMASIA 1+; MICROCYTOSIS SLIGHT; PLATELET MORPHOLOGY COMMENT NORMAL (NORMAL); STOMATOCYTES PRESENT
[2024-03-31 05:31] LABS: ALANINE AMINOTRANSFERASE 14 Units/L (12-78); ALBUMIN 2.5 g/dL (3.4-5.0); ALKALINE PHOSPHATASE 103 Units/L (46-116); ASPARTATE AMINO TRANSFERASE 19 Units/L (15-37); BLOOD UREA NITROGEN 12 mg/dL (7-18); CALCIUM 9.5 mg/dL (8.5-10.1); CARBON DIOXIDE 30.2 mmol/L (21-32); CHLORIDE 98 mmol/L (98-107); COR CA(FOR HYPOALB) 10.7 mg/dL (8.5-10.1); COR NA(FOR HYPERGLY) 138 mmol/L (136-145); CREATININE 1.04 mg/dL (0.55-1.02); GLUCOSE 143 mg/dL (65-99); MAGNESIUM 1.2 mg/dL (2.0-2.9); SODIUM 137 mmol/L (136-145); eGFR NON BLACK RACES 56 (>60)
[2024-03-31] MEDS ORDERED: CONSULT PHARMACY - POTASSIUM & MAGNESIUM XX SCH (06:00)
[2024-03-31] MEDS: PriLOSEC PO SCH (08:25)
[2024-03-31] MEDS: K-DUR TAB 20 MEQ PO SCH (08:27)
[2024-03-31] MEDS: MAG-OX TAB PO SCH (08:28)
[2024-03-31] MEDS ORDERED: ZOFRAN INJ 4 MG VIAL IVP PRN (09:53)
--- NOTE | 2024-03-31 09:55 | PCM.PROG ---
Progress Note Progress Note for Day of Date of Exam: 03/31/24 Subjective Subjective: Patient seen at bedside, no acute events overnight. She did have hypoglycemia yesterday evening, glucose 36. She was given D50 and it improved. She reports not eating much due to nausea. Her insulin and farxiga were stopped. She continues to complain of left sided abdominal pain. She has had recurrent ER visits and had CTAP done recently. Chest CT was done during this admission which did not show anything acute. Labs showed low K and Mag. Labs/imaging reviewed: -WBC 8.6 Hgb 10.2 K 3.0 Ma.2 BUN/Cr:12/.04 -CTAP 03/27/24: No evidence of bowel obstruction. New mild dilatation of the right renal pelvis. No dilatation of the central renal calices. Colonic diverticulosis. Cholecystectomy. Plan: Start NS with K and Mag replacement, hold levemir and oral hypoglycemics, continue SSI. Encouraged PO intake, add Ensure. Zofran prn. Continue omeprazole. Will order KUB. Continue other home medications. PT/OT as tolerated. CM to work on DC plan. Monitor AM labs/imaging. Past Medical Family Social History Allergies: Allergies codeine Allergy (Unknown, Verified 03/04/24 16:16) Reason: Drug allergy Iodinated Contrast Media [IVP DYE] Allergy (Unknown, Verified 03/04/24 16:16) tetanus toxoid, adsorbed Allergy (Unknown, Verified 03/04/24 16:16) walnut Allergy (Unknown, Verified 03/04/24 16:16) Comments: walnut oil iodine Allergy (Verified 03/04/24 16:16) shrimp Allergy (Verified 03/04/24 16:16) tetanus immune globulin Allergy (Verified 03/04/24 16:16) Vital Signs and I&O's Vital Signs: Vital Signs Temperature 98.9 F Temperature 98.4 F Pulse Rate [Right Brachial] 91 Pulse Rate [Right Brachial] 84 Respiratory Rate 20 Respiratory Rate 21 Respiratory Rate 20 Blood Pressure [Right Arm] 138/62 Blood Pressure [Right Arm] 134/63 O2 Sat by Pulse Oximetry 98 O2 Sat by Pulse Oximetry 92 Intake and Output: Intake & Output 03/28/24 03/29/24 03/30/24 03/31/24 23:59 23:59 23:59 23:59 Intake Total 2039 Balance 2039 Physical Exam Oriented: Normal Eyes: Normal Nose: Normal Throat: Normal Cardiovascular: Normal Auscultation: Bowel Sounds: Normal Tenderness: LUQ, LLQ and Mild Skin: Decreased Turgur Musculoskeletal: Left (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) Psychiatric: Normal Mood Description: Calm Affect: Normal Speech Pattern: Clear and Appropriate Laboratory and Diagnostics 03/31/24 04:45 03/31/24 04:45 Labs: Laboratory WBC 8.6 X10^3/uL (3.6-10.0) 03/31/24 04:45 RBC 4.34 X10^6/uL (3.5-5.4) 03/31/24 04:45 Hgb 10.2 g/dL (12.0-16.0) L 03/31/24 04:45 Hct 32.5 % (36.0-47.0) L 03/31/24 04:45 MCV 74.8 fL (80.0-100.0) L 03/31/24 04:45 MCH 23.4 pg (27.0-34.0) L 03/31/24 04:45 MCHC 31.3 g/dL (33.0-35.0) L 03/31/24 04:45 RDW 19.7 % (11.6-16.5) H 03/31/24 04:45 Plt Count 451 X10^3/uL (150.0-450.0) H 03/31/24 04:45 Plt Count Comment Increased (ADEQUATE) A 03/31/24 04:45 MPV 7.5 fL (7.4-11.0) 03/31/24 04:45 Neut % (Auto) 63.9 % (42.0-75.0) 03/31/24 04:45 Lymph % (Auto) 24.2 % (21.0-51.0) 03/31/24 04:45 [place] % (Auto) 8.4 % (0.0-13.0) 03/31/24 04:45 Eos % (Auto) 2.8 % (0.9-2.9) 03/31/24 04:45 Baso % (Auto) 0.7 % (0.2-1.0) 03/31/24 04:45 Neut # (Auto) 5.5 x10^3/uL (2.2-4.8) H 03/31/24 04:45 Lymph # (Auto) 2.1 X10^3/uL (1.3-2.9) 03/31/24 04:45 [place] # (Auto) 0.7 x10^3/uL (0.3-0.8) 03/31/24 04:45 Eos # (Auto) 0.2 x10^3/uL (0.0-0.2) 03/31/24 04:45 Baso # (Auto) 0.1 X10^3/uL (0.0-0.1) 03/31/24 04:45 Absolute Nucleated RBC 0.1 /100WBC 03/31/24 04:45 Plt Morphology Comment Normal (NORMAL) 03/31/24 04:45 RBC Morphology Abnormal (NORMAL) A 03/31/24 04:45 Hypochromasia 1+ A 03/31/24 04:45 Anisocytosis Slight A 03/31/24 04:45 Microcytosis Slight A 03/31/24 04:45 Stomatocytes Present 03/31/24 04:45 Sodium 137 mmol/L (136-145) 03/31/24 04:45 Corrected Sodium 138 mmol/L (136-145) 03/31/24 04:45 Potassium 3.0 mmol/L (3.5-5.1) L 03/31/24 04:45 Chloride 98 mmol/L (98-107) 03/31/24 04:45 Carbon Dioxide 30.2 mmol/L (21-32) 03/31/24 04:45 BUN 12 mg/dL (7-18) 03/31/24 04:45 Creatinine 1.04 mg/dL (0.55-1.02) H 03/31/24 04:45 Est GFR (MDRD) Af Amer > 60 (>60) 03/31/24 04:45 Est GFR (MDRD) Non-Af 56 (>60) L 03/31/24 04:45 Glucose 143 mg/dL (65-99) H 03/31/24 04:45 POC Glucose (mg/dL) 157 mg/dL (65-99) H 03/31/24 05:27 Calcium 9.5 mg/dL (8.5-10.1) 03/31/24 04:45 Corrected Calcium 10.7 mg/dL (8.5-10.1) H 03/31/24 04:45 Magnesium 1.2 mg/dL (2.0-2.9) L 03/31/24 04:45 Total Bilirubin 0.30 mg/dL (0.2-1.0) 03/31/24 04:45 AST 19 Units/L (15-37) 03/31/24 04:45 ALT 14 Units/L (12-78) 03/31/24 04:45 Alkaline Phosphatase 103 Units/L (46-116) 03/31/24 04:45 Total Protein 7.0 g/dL (6.4-8.2) 03/31/24 04:45 Albumin 2.5 g/dL (3.4-5.0) L 03/31/24 04:45 Globulin 4.5 g/dL (2.5-4.5) 03/31/24 04:45 Albumin/Globulin Ratio 0.6 Ratio (1.1-2.1) L 03/31/24 04:45 Specimen Type Clean catch urine 03/29/24 23:32 Urine Color Pale yellow (YELLOW) 03/29/24 23:32 Urine Appearance Clear (CLEAR) 03/29/24 23:32 Urine pH 6.0 (5.0 - 8.0) 03/29/24 23:32 Ur Specific [place] 1.015 (1.000-1.030) 03/29/24 23:32 Urine Protein 1+ (NEGATIVE) 03/29/24 23:32 Urine Glucose (UA) 4+ (NEGATIVE) 03/29/24 23:32 Urine Ketones 4+ (NEGATIVE) 03/29/24 23:32 Urine Blood Negative (NEGATIVE) 03/29/24 23:32 Urine Nitrite Negative (NEGATIVE) 03/29/24 23:32 Urine Bilirubin Negative (NEGATIVE) 03/29/24 23:32 Urine Urobilinogen Normal (NORMAL) 03/29/24 23:32 Ur Leukocyte Esterase Negative (NEGATIVE) 03/29/24 23:32 Urine RBC 0-2 /HPF (0-3) 03/29/24 23:32 Urine WBC 0-2 /HPF (0-5) 03/29/24 23:32 Ur Squamous Epith Cells Moderate /HPF (NEGATIVE) 03/29/24 23:32 Urine Bacteria Trace /HPF (NEGATIVE) 03/29/24 23:32 Urine Yeast Few /HPF (NEGATIVE) 03/29/24 23:32 Ur Culture Indicated? No/not indicated 03/29/24 23:32 Urine Opiates Screen Negative (NEG=<300) 03/29/24 23:32 Urine Methadone Screen Negative (NEG=<300) 03/29/24 23:32 Ur Barbiturates Screen Negative (NEG=<200) 03/29/24 23:32 Ur Phencyclidine Scrn Negative (NEG=<25) 03/29/24 23:32 Ur Amphetamines Screen Negative (NEG=<1000) 03/29/24 23:32 U Benzodiazepines Scrn Negative (NEG=<200) 03/29/24 23:32 Urine Cocaine Screen Negative (NEG=<300) 03/29/24 23:32 U Marijuana (THC) Screen Negative (NEG=<50) 03/29/24 23:32 Plan (1) Physical deconditioning: Status: Acute (2) Hypokalemia: Status: Acute (3) Hypomagnesemia: Status: Acute (4) Hypoglycemia: Status: Acute (5) Generalized weakness: Status: Acute (6) Gastroesophageal reflux disease: Status: Acute Qualifiers: Esophagitis presence: esophagitis presence not specified Qualified Code(s): K21.9 - Gastro-esophageal reflux disease without esophagitis (7) Chronic kidney disease (CKD): Status: Acute Qualifiers: Chronic kidney disease stage: stage 3 (moderate) Qualified Code(s): N18.3 - Chronic kidney disease, stage 3 (moderate) (8) Benign hypertension: Status: None (9) Hemiparesis of left dominant side: Status: None Qualifiers: Hemiparesis etiology: unspecified Qualified Code(s): G81.92 - Hemiplegia, unspecified affecting left dominant side
[2024-03-31] MEDS: NS + KCL 20 MEQ/L 1,000 ML with MAGNESIUM SULFATE 50% INJ VIAL 2 G IV SCH (10:56)
[2024-03-31] MEDS: NovoLIN R (or HumuLIN R) SUBCUT PRN (12:01)
--- NOTE | 2024-03-31 15:52 | RAD ---
EXAMINATION:KUBHISTORY:ABD PAIN ; .COMPARISON STUDY:None.TECHNIQUE:2 supine AP views of the abdomen and pelvisFINDINGS:Moderate amount of feces. Minimal gaseous distention of small and large bowel. Mild spondylosis lumbar spine. Mild degenerative changes SI joints, hip joints, pubic symphysis. Surgical clips right upper abdomen. The upper abdomen/chest was not included on this exam.IMPRESSION:Mlog-st-qomfesgn amount of feces.THIS IS AN ELECTRONICALLY VERIFIED FINAL REPORT03/31/2024 3:49 PM - Electronically signed by Maricruz Ford MD
[2024-04-01 05:44] LABS: BASOPHILS # (AUTO) 0.1 X10^3/uL (0.0-0.1); BASOPHILS % (AUTO) 1.4 % (0.2-1.0); EOSINOPHILS # (AUTO) 0.3 x10^3/uL (0.0-0.2); EOSINOPHILS % (AUTO) 3.2 % (0.9-2.9); HEMATOCRIT 34.7 % (36.0-47.0); HEMOGLOBIN 10.6 g/dL (12.0-16.0); LYMPHOCYTES # (AUTO) 2.9 X10^3/uL (1.3-2.9); LYMPHOCYTES % (AUTO) 34.9 % (21.0-51.0); MEAN CORPUSCULAR HGB CONC 30.5 g/dL (33.0-35.0); MEAN CORPUSCULAR VOLUME 75.4 fL (80.0-100.0); MEAN PLATELET VOLUME 7.7 fL (7.4-11.0); MONOCYTES # (AUTO) 0.7 x10^3/uL (0.3-0.8); MONOCYTES % (AUTO) 7.9 % (0.0-13.0); NEUTROPHILS # (AUTO) 4.4 x10^3/uL (2.2-4.8); NEUTROPHILS % (AUTO) 52.6 % (42.0-75.0); PLATELET COUNT 452 X10^3/uL (150.0-450.0); RED CELL DISTRIBUTION WIDTH 20.1 % (11.6-16.5); WHITE BLOOD COUNT 8.3 X10^3/uL (3.6-10.0)
[2024-04-01 05:56] LABS: ANISOCYTOSIS 1+; HYPOCHROMASIA 1+; MICROCYTOSIS SLIGHT; PLATELET MORPHOLOGY COMMENT NORMAL (NORMAL); STOMATOCYTES PRESENT
[2024-04-01 06:03] LABS: ALANINE AMINOTRANSFERASE 14 Units/L (12-78); ALBUMIN 2.6 g/dL (3.4-5.0); ALKALINE PHOSPHATASE 105 Units/L (46-116); ASPARTATE AMINO TRANSFERASE 14 Units/L (15-37); BLOOD UREA NITROGEN 14 mg/dL (7-18); CALCIUM 9.7 mg/dL (8.5-10.1); CHLORIDE 98 mmol/L (98-107); COR CA(FOR HYPOALB) 10.8 mg/dL (8.5-10.1); COR NA(FOR HYPERGLY) 138 mmol/L (136-145); CREATININE 1.01 mg/dL (0.55-1.02); GLUCOSE 180 mg/dL (65-99); MAGNESIUM 1.9 mg/dL (2.0-2.9); SODIUM 136 mmol/L (136-145); TOTAL PROTEIN 7.2 g/dL (6.4-8.2); eGFR NON BLACK RACES 58 (>60)
[2024-04-01] MEDS: MILK OF MAGNESIA PO SCH (09:54)
[2024-04-01] MEDS: COLACE CAP 100 MG PO SCH (09:54)
--- NOTE | 2024-04-01 10:22 | PCM.PROG ---
Progress Note Progress Note for Day of Date of Exam: 04/01/24 Subjective Subjective: Patient seen at bedside, no acute events overnight. She states she is trying to eat better. She has not had a BM in days. KUB yesterday showed mild to moderate feces. She has not had any further hypoglycemic episodes. Son also present in the room, would like to take patient home when ready for discharge. She does have home health set up. He states patient was not eating much but still taking the same insulin. He was giving her insulin but did not know how to adjust the dose. She has been getting SSI here. Labs/imaging reviewed: -WBC 8.3 Hgb 10.6 K 4.0 Ma.9 BUN/Cr:14/1.01 - Plan: will add stool softners, enemas prn. Continue hydration, replace electrolytes prn. PT/OT as tolerated. Continue home medications, continue SSI. Possible discharge tomorrow to home with home health. Son verbalized understanding. Monitor AM labs/imaging. Past Medical Family Social History Allergies: Allergies codeine Allergy (Unknown, Verified 03/04/24 16:16) Reason: Drug allergy Iodinated Contrast Media [IVP DYE] Allergy (Unknown, Verified 03/04/24 16:16) tetanus toxoid, adsorbed Allergy (Unknown, Verified 03/04/24 16:16) walnut Allergy (Unknown, Verified 03/04/24 16:16) Comments: walnut oil iodine Allergy (Verified 03/04/24 16:16) shrimp Allergy (Verified 03/04/24 16:16) tetanus immune globulin Allergy (Verified 03/04/24 16:16) Vital Signs and I&O's Vital Signs: Vital Signs Temperature 98.2 F Temperature 98.5 F Pulse Rate [Right Brachial] 89 Pulse Rate [Right Brachial] 87 Respiratory Rate 18 Respiratory Rate 18 Respiratory Rate 18 Respiratory Rate 20 Blood Pressure [Right Arm] 145/71 Blood Pressure [Right Arm] 169/79 O2 Sat by Pulse Oximetry 92 O2 Sat by Pulse Oximetry 95 Intake and Output: Intake & Output 03/29/24 03/30/24 03/31/24 04/01/24 23:59 23:59 23:59 23:59 Intake Total 2039 1616 / 1616 497 / 497 Balance 2039 1616 / 1616 497 / 497 Physical Exam Oriented: Normal Eyes: Normal Nose: Normal Throat: Normal Cardiovascular: Normal Auscultation: Bowel Sounds: Decreased Tenderness: LLQ and Mild Skin: Decreased Turgur Musculoskeletal: Left (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) Psychiatric: Normal Mood Description: Calm Affect: Normal Speech Pattern: Clear and Appropriate Laboratory and Diagnostics 04/01/24 05:09 04/01/24 05:09 Labs: Laboratory WBC 8.3 X10^3/uL (3.6-10.0) 04/01/24 05:09 RBC 4.60 X10^6/uL (3.5-5.4) 04/01/24 05:09 Hgb 10.6 g/dL (12.0-16.0) L 04/01/24 05:09 Hct 34.7 % (36.0-47.0) L 04/01/24 05:09 MCV 75.4 fL (80.0-100.0) L 04/01/24 05:09 MCH 23.0 pg (27.0-34.0) L 04/01/24 05:09 MCHC 30.5 g/dL (33.0-35.0) L 04/01/24 05:09 RDW 20.1 % (11.6-16.5) H 04/01/24 05:09 Plt Count 452 X10^3/uL (150.0-450.0) H 04/01/24 05:09 Plt Count Comment Increased (ADEQUATE) A 04/01/24 05:09 MPV 7.7 fL (7.4-11.0) 04/01/24 05:09 Neut % (Auto) 52.6 % (42.0-75.0) 04/01/24 05:09 Lymph % (Auto) 34.9 % (21.0-51.0) 04/01/24 05:09 [place] % (Auto) 7.9 % (0.0-13.0) 04/01/24 05:09 Eos % (Auto) 3.2 % (0.9-2.9) H 04/01/24 05:09 Baso % (Auto) 1.4 % (0.2-1.0) H 04/01/24 05:09 Neut # (Auto) 4.4 x10^3/uL (2.2-4.8) 04/01/24 05:09 Lymph # (Auto) 2.9 X10^3/uL (1.3-2.9) 04/01/24 05:09 [place] # (Auto) 0.7 x10^3/uL (0.3-0.8) 04/01/24 05:09 Eos # (Auto) 0.3 x10^3/uL (0.0-0.2) H 04/01/24 05:09 Baso # (Auto) 0.1 X10^3/uL (0.0-0.1) 04/01/24 05:09 Absolute Nucleated RBC 0.1 /100WBC 04/01/24 05:09 Plt Morphology Comment Normal (NORMAL) 04/01/24 05:09 RBC Morphology Abnormal (NORMAL) A 04/01/24 05:09 Hypochromasia 1+ A 04/01/24 05:09 Anisocytosis 1+ A 04/01/24 05:09 Microcytosis Slight A 04/01/24 05:09 Stomatocytes Present 04/01/24 05:09 Sodium 136 mmol/L (136-145) 04/01/24 05:09 Corrected Sodium 138 mmol/L (136-145) 04/01/24 05:09 Potassium 4.0 mmol/L (3.5-5.1) 04/01/24 05:09 Chloride 98 mmol/L (98-107) 04/01/24 05:09 Carbon Dioxide 27.0 mmol/L (21-32) 04/01/24 05:09 BUN 14 mg/dL (7-18) 04/01/24 05:09 Creatinine 1.01 mg/dL (0.55-1.02) 04/01/24 05:09 Est GFR (MDRD) Af Amer > 60 (>60) 04/01/24 05:09 Est GFR (MDRD) Non-Af 58 (>60) L 04/01/24 05:09 Glucose 180 mg/dL (65-99) H 04/01/24 05:09 POC Glucose (mg/dL) 165 mg/dL (65-99) H 04/01/24 05:33 Calcium 9.7 mg/dL (8.5-10.1) 04/01/24 05:09 Corrected Calcium 10.8 mg/dL (8.5-10.1) H 04/01/24 05:09 Magnesium 1.9 mg/dL (2.0-2.9) L 04/01/24 05:09 Total Bilirubin 0.30 mg/dL (0.2-1.0) 04/01/24 05:09 AST 14 Units/L (15-37) L 04/01/24 05:09 ALT 14 Units/L (12-78) 04/01/24 05:09 Alkaline Phosphatase 105 Units/L (46-116) 04/01/24 05:09 Total Protein 7.2 g/dL (6.4-8.2) 04/01/24 05:09 Albumin 2.6 g/dL (3.4-5.0) L 04/01/24 05:09 Globulin 4.6 g/dL (2.5-4.5) H 04/01/24 05:09 Albumin/Globulin Ratio 0.6 Ratio (1.1-2.1) L 04/01/24 05:09 Specimen Type Clean catch urine 03/29/24 23:32 Urine Color Pale yellow (YELLOW) 03/29/24 23:32 Urine Appearance Clear (CLEAR) 03/29/24 23:32 Urine pH 6.0 (5.0 - 8.0) 03/29/24 23:32 Ur Specific [place] 1.015 (1.000-1.030) 03/29/24 23:32 Urine Protein 1+ (NEGATIVE) 03/29/24 23:32 Urine Glucose (UA) 4+ (NEGATIVE) 03/29/24 23:32 Urine Ketones 4+ (NEGATIVE) 03/29/24 23:32 Urine Blood Negative (NEGATIVE) 03/29/24 23:32 Urine Nitrite Negative (NEGATIVE) 03/29/24 23:32 Urine Bilirubin Negative (NEGATIVE) 03/29/24 23:32 Urine Urobilinogen Normal (NORMAL) 03/29/24 23:32 Ur Leukocyte Esterase Negative (NEGATIVE) 03/29/24 23:32 Urine RBC 0-2 /HPF (0-3) 03/29/24 23:32 Urine WBC 0-2 /HPF (0-5) 03/29/24 23:32 Ur Squamous Epith Cells Moderate /HPF (NEGATIVE) 08/25/24 23:32 Urine Bacteria Trace /HPF (NEGATIVE) 03/29/24 23:32 Urine Yeast Few /HPF (NEGATIVE) 03/29/24 23:32 Ur Culture Indicated? No/not indicated 03/29/24 23:32 Urine Opiates Screen Negative (NEG=<300) 03/29/24 23:32 Urine Methadone Screen Negative (NEG=<300) 03/29/24 23:32 Ur Barbiturates Screen Negative (NEG=<200) 03/29/24 23:32 Ur Phencyclidine Scrn Negative (NEG=<25) 03/29/24 23:32 Ur Amphetamines Screen Negative (NEG=<1000) 03/29/24 23:32 U Benzodiazepines Scrn Negative (NEG=<200) 03/29/24 23:32 Urine Cocaine Screen Negative (NEG=<300) 03/29/24 23:32 U Marijuana (THC) Screen Negative (NEG=<50) 03/29/24 23:32 Plan (1) Constipation: Status: Acute Qualifiers: Constipation type: other constipation type Qualified Code(s): K59.09 - Other constipation (2) Physical deconditioning: Status: Acute (3) Hypokalemia: Status: Acute (4) Hypomagnesemia: Status: Acute (5) Hypoglycemia: Status: Acute (6) Generalized weakness: Status: Acute (7) Gastroesophageal reflux disease: Status: Acute Qualifiers: Esophagitis presence: esophagitis presence not specified Qualified Code(s): K21.9 - Gastro-esophageal reflux disease without esophagitis (8) Chronic kidney disease (CKD): Status: Acute Qualifiers: Chronic kidney disease stage: stage 3 (moderate) Qualified Code(s): N18.3 - Chronic kidney disease, stage 3 (moderate) (9) Benign hypertension: Status: None (10) Hemiparesis of left dominant side: Status: None Qualifiers: Hemiparesis etiology: unspecified Qualified Code(s): G81.92 - Hemipleg ia, unspecified affecting left dominant side
[2024-04-01] MEDS: MORPHINE SULFATE INJ 2 MG INJ IVP ONE (10:29)
[2024-04-02 00:22] VITALS: RESP 18
[2024-04-02 06:32] LABS: BASOPHILS % (AUTO) 0.2 % (0.2-1.0); EOSINOPHILS # (AUTO) 0.3 x10^3/uL (0.0-0.2); EOSINOPHILS % (AUTO) 2.4 % (0.9-2.9); HEMATOCRIT 33.3 % (36.0-47.0); HEMOGLOBIN 10.1 g/dL (12.0-16.0); LYMPHOCYTES # (AUTO) 2.9 X10^3/uL (1.3-2.9); LYMPHOCYTES % (AUTO) 26.3 % (21.0-51.0); MEAN CORPUSCULAR HEMOGLOBIN 22.8 pg (27.0-34.0); MEAN CORPUSCULAR HGB CONC 30.4 g/dL (33.0-35.0); MEAN PLATELET VOLUME 7.6 fL (7.4-11.0); MONOCYTES # (AUTO) 0.8 x10^3/uL (0.3-0.8); MONOCYTES % (AUTO) 7.3 % (0.0-13.0); NEUTROPHILS % (AUTO) 63.8 % (42.0-75.0); PLATELET COUNT 451 X10^3/uL (150.0-450.0); RED BLOOD COUNT 4.44 X10^6/uL (3.5-5.4); RED CELL DISTRIBUTION WIDTH 20.1 % (11.6-16.5)
[2024-04-02 06:48] LABS: ALANINE AMINOTRANSFERASE 13 Units/L (12-78); ALBUMIN 2.6 g/dL (3.4-5.0); ALKALINE PHOSPHATASE 102 Units/L (46-116); ASPARTATE AMINO TRANSFERASE 14 Units/L (15-37); BLOOD UREA NITROGEN 13 mg/dL (7-18); CALCIUM 9.2 mg/dL (8.5-10.1); CARBON DIOXIDE 25.9 mmol/L (21-32); CHLORIDE 97 mmol/L (98-107); COR CA(FOR HYPOALB) 10.3 mg/dL (8.5-10.1); COR NA(FOR HYPERGLY) 135 mmol/L (136-145); CREATININE 0.94 mg/dL (0.55-1.02); GLUCOSE 159 mg/dL (65-99); POTASSIUM 4.6 mmol/L (3.5-5.1); SODIUM 134 mmol/L (136-145); eGFR NON BLACK RACES > 60 (>60)
[2024-04-02 06:57] LABS: ANISOCYTOSIS 1+; HYPOCHROMASIA SLIGHT; PLATELET MORPHOLOGY COMMENT NORMAL (NORMAL)
[2024-04-02] MEDS: NS 1,000 ML IV 1,000 ML with MAGNESIUM SULFATE 50% INJ VIAL 2 G IV SCH (08:24)
[2024-04-02 09:11] VITALS: BP 174/77; PULSE 89; TEMP 98.2; O2SAT 97
[2024-04-02] MEDS: FLEET ENEMA ADULT RECTAL NR (10:20)
--- NOTE | 2024-04-08 08:50 | W.DIS.FURT ---
Summary of Discharge Discharge Summary of Date Date of Exam: 04/02/24 Admission Date Date of Admission: 03/29/24 Admission Diagnosis Patient Problems (Updated 04/01/24 @ 10:22 by Maricarmen Mercedes) Physical deconditioning (Acute) R53.81 Rib pain on left side (Acute) R07.81 Hospital Course: Patient examined this morning, no acute events overnight. She is eating well today. She has had bowel movements. No further hypoglycemic episodes. She does have home health set up. She has been getting SSI here. Pt was discharged in stable condition. Continue SSI at home. Instructed to follow up with pcp in 1 we ek. Vital Signs: Vital Signs (72 hours) 03/30/24 12:00 03/30/24 11:00 03/30/24 11:34 Temperature 98.1 F Pulse Rate Pulse Rate [Right Brachial] 103 H Respiratory Rate 21 22 Blood Pressure [Right Arm] 159/87 O2 Sat by Pulse Oximetry 97 Oxygen Delivery Method Room Air Room Air 03/30/24 12:34 03/30/24 16:00 03/30/24 19:00 Temperature 98.2 F Pulse Rate Pulse Rate [Right Brachial] 85 Respiratory Rate 22 21 Blood Pressure [Right Arm] 132/68 O2 Sat by Pulse Oximetry 94 L Oxygen Delivery Method Room Air Room Air 03/30/24 23:11 03/30/24 20:00 03/30/24 23:41 Temperature 98.1 F 98.2 F Pulse Rate Pulse Rate [Right Brachial] 86 81 Respiratory Rate 20 20 20 Blood Pressure [Right Arm] 136/63 166/94 O2 Sat by Pulse Oximetry 94 L 98 Oxygen Delivery Method Room Air Room Air 03/31/24 00:11 03/31/24 03:49 03/31/24 08:26 Temperature 98.4 F Pulse Rate Pulse Rate [Right Brachial] 84 Respiratory Rate 20 20 20 Blood Pressure [Right Arm] 134/63 O2 Sat by Pulse Oximetry 92 L Oxygen Delivery Method Room Air 03/31/24 09:05 03/31/24 08:00 03/31/24 09:26 Temperature 98.9 F Pulse Rate Pulse Rate [Right Brachial] 91 H Respiratory Rate 21 18 Blood Pressure [Right Arm] 138/62 O2 Sat by Pulse Oximetry 98 Oxygen Delivery Method Room Air Room Air 03/31/24 12:00 03/31/24 16:00 03/31/24 19:00 Temperature 98.7 F 98.2 F Pulse Rate Pulse Rate [Right Brachial] 80 78 Respiratory Rate 21 20 Blood Pressure [Right Arm] 165/76 141/71 O2 Sat by Pulse Oximetry 96 94 L Oxygen Delivery Method Room Air Room Air Room Air 03/31/24 19:41 03/31/24 21:21 03/31/24 20:00 Temperature 98.3 F Pulse Rate 86 Pulse Rate [Right Brachial] 80 Respiratory Rate 20 20 Blood Pressure [Right Arm] 160/67 O2 Sat by Pulse Oximetry 97 94 L Oxygen Delivery Method Room Air 03/31/24 22:21 03/31/24 23:17 04/01/24 04:00 Temperature 98.2 F 98.5 F Pulse Rate Pulse Rate [Right Brachial] 85 87 Respiratory Rate 20 22 20 Blood Pressure [Right Arm] 131/62 169/79 O2 Sat by Pulse Oximetry 95 95 Oxygen Delivery Method Room Air Room Air 04/01/24 05:00 04/01/24 06:00 04/01/24 07:54 Temperature 98.2 F Pulse Rate Pulse Rate [Right Brachial] 89 Respiratory Rate 18 18 18 Blood Pressure [Right Arm] 145/71 O2 Sat by Pulse Oximetry 92 L Oxygen Delivery Method Room Air 04/01/24 10:29 04/01/24 09:07 04/01/24 10:59 Temperature Pulse Rate Pulse Rate [Right Brachial] Respiratory Rate 18 18 Blood Pressure [Right Arm] O2 Sat by Pulse Oximetry Oxygen Delivery Method Room Air 04/01/24 12:00 04/01/24 16:00 04/01/24 19:00 Temperature 98.3 F 97.6 F Pulse Rate Pulse Rate [Right Brachial] 72 79 Respiratory Rate 18 18 Blood Pressure [Right Arm] 146/70 118/74 O2 Sat by Pulse Oximetry 93 L 96 Oxygen Delivery Method Room Air Room Air Room Air 04/01/24 20:00 04/01/24 22:35 04/02/24 00:00 Temperature 97.9 F 98.2 F Pulse Rate Pulse Rate [Right Brachial] 69 79 Respiratory Rate 16 16 18 Blood Pressure [Right Arm] 160/72 141/67 O2 Sat by Pulse Oximetry 96 93 L Oxygen Delivery Method Room Air Room Air 04/01/24 23:35 04/02/24 04:00 04/02/24 08:17 Temperature 97.8 F Pulse Rate Pulse Rate [Right Brachial] 90 Respiratory Rate 16 18 18 Blood Pressure [Right Arm] 175/81 O2 Sat by Pulse Oximetry 98 Oxygen Delivery Method Room Air 04/02/24 08:00 Temperature 98.2 F Pulse Rate Pulse Rate [Right Brachial] 89 Respiratory Rate 18 Blood Pressure [Right Arm] 174/77 O2 Sat by Pulse Oximetry 97 Oxygen Delivery Method Room Air Labs: Laboratory Last Values WBC 11.0 X10^3/uL (3.6-10.0) H 04/02/24 06:05 RBC 4.44 X10^6/uL (3.5-5.4) 04/02/24 06:05 Hgb 10.1 g/dL (12.0-16.0) L 04/02/24 06:05 Hct 33.3 % (36.0-47.0) L 04/02/24 06:05 MCV 75.0 fL (80.0-100.0) L 04/02/24 06:05 MCH 22.8 pg (27.0-34.0) L 04/02/24 06:05 MCHC 30.4 g/dL (33.0-35.0) L 04/02/24 06:05 RDW 20.1 % (11.6-16.5) H 04/02/24 06:05 Plt Count 451 X10^3/uL (150.0-450.0) H 04/02/24 06:05 Plt Count Comment Increased (ADEQUATE) A 04/02/24 06:05 MPV 7.6 fL (7.4-11.0) 04/02/24 06:05 Neut % (Auto) 63.8 % (42.0-75.0) 04/02/24 06:05 Lymph % (Auto) 26.3 % (21.0-51.0) 04/02/24 06:05 [place] % (Auto) 7.3 % (0.0-13.0) 04/02/24 06:05 Eos % (Auto) 2.4 % (0.9-2.9) 04/02/24 06:05 Baso % (Auto) 0.2 % (0.2-1.0) 04/02/24 06:05 Neut # (Auto) 7.0 x10^3/uL (2.2-4.8) H 04/02/24 06:05 Lymph # (Auto) 2.9 X10^3/uL (1.3-2.9) 04/02/24 06:05 Cedar # (Auto) 0.8 x10^3/uL (0.3-0.8) 04/02/24 06:05 Eos # (Auto) 0.3 x10^3/uL (0.0-0.2) H 04/02/24 06:05 Baso # (Auto) 0.0 X10^3/uL (0.0-0.1) 04/02/24 06:05 Absolute Nucleated RBC 0.0 /100WBC 04/02/24 06:05 Plt Morphology Comment Normal (NORMAL) 04/02/24 06:05 RBC Morphology Abnormal (NORMAL) A 04/02/24 06:05 Hypochromasia Slight A 04/02/24 06:05 Anisocytosis 1+ A 04/02/24 06:05 Microcytosis Slight A 04/01/24 05:09 Stomatocytes Present 04/01/24 05:09 Sodium 134 mmol/L (136-145) L 04/02/24 06:05 Corrected Sodium 135 mmol/L (136-145) L 04/02/24 06:05 Potassium 4.6 mmol/L (3.5-5.1) 04/02/24 06:05 Chloride 97 mmol/L (98-107) L 04/02/24 06:05 Carbon Dioxide 25.9 mmol/L (21-32) 04/02/24 06:05 BUN 13 mg/dL (7-18) 04/02/24 06:05 Creatinine 0.94 mg/dL (0.55-1.02) 04/02/24 06:05 Est GFR (MDRD) Af Amer > 60 (>60) 04/02/24 06:05 Est GFR (MDRD) Non-Af > 60 (>60) 04/02/24 06:05 Glucose 159 mg/dL (65-99) H 04/02/24 06:05 POC Glucose (mg/dL) 168 mg/dL (65-99) H 04/02/24 05:11 Calcium 9.2 mg/dL (8.5-10.1) 04/02/24 06:05 Corrected Calcium 10.3 mg/dL (8.5-10.1) H 04/02/24 06:05 Magnesium 2.0 mg/dL (2.0-2.9) 04/02/24 06:05 Total Bilirubin 0.40 mg/dL (0.2-1.0) 04/02/24 06:05 AST 14 Units/L (15-37) L 04/02/24 06:05 ALT 13 Units/L (12-78) 04/02/24 06:05 Alkaline Phosphatase 102 Units/L (46-116) 04/02/24 06:05 Total Protein 7.0 g/dL (6.4-8.2) 04/02/24 06:05 Albumin 2.6 g/dL (3.4-5.0) L 04/02/24 06:05 Globulin 4.4 g/dL (2.5-4.5) 04/02/24 06:05 Albumin/Globulin Ratio 0.6 Ratio (1.1-2.1) L 04/02/24 06:05 Specimen Type Clean catch urine 03/29/24 23:32 Urine Color Pale yellow (YELLOW) 03/29/24 23:32 Urine Appearance Clear (CLEAR) 03/29/24 23:32 Urine pH 6.0 (5.0 - 8.0) 03/29/24 23:32 Ur Specific [place] 1.015 (1.000-1.030) 03/29/24 23:32 Urine Protein 1+ (NEGATIVE) 03/29/24 23:32 Urine Glucose (UA) 4+ (NEGATIVE) 03/29/24 23:32 Urine Ketones 4+ (NEGATIVE) 03/29/24 23:32 Urine Blood Negative (NEGATIVE) 03/29/24 23:32 Urine Nitrite Negative (NEGATIVE) 03/29/24 23:32 Urine Bilirubin Negative (NEGATIVE) 03/29/24 23:32 Urine Urobilinogen Normal (NORMAL) 03/29/24 23:32 Ur Leukocyte Esterase Negative (NEGATIVE) 03/29/24 23:32 Urine RBC 0-2 /HPF (0-3) 03/29/24 23:32 Urine WBC 0-2 /HPF (0-5) 03/29/24 23:32 Ur Squamous Epith Cells Moderate /HPF (NEGATIVE) 03/29/24 23:32 Urine Bacteria Trace /HPF (NEGATIVE) 03/29/24 23:32 Urine Yeast Few /HPF (NEGATIVE) 03/29/24 23:32 Ur Culture Indicated? No/not indicated 03/29/24 23:32 Urine Opiates Screen Negative (NEG=<300) 03/29/24 23:32 Urine Methadone Screen Negative (NEG=<300) 03/29/24 23:32 Ur Barbiturates Screen Negative (NEG=<200) 03/29/24 23:32 Ur Phencyclidine Scrn Negative (NEG=<25) 03/29/24 23:32 Ur Amphetamines Screen Negative (NEG=<1000) 03/29/24 23:32 U Benzodiazepines Scrn Negative (NEG=<200) 03/29/24 23:32 Urine Cocaine Screen Negative (NEG=<300) 03/29/24 23:32 U Marijuana (THC) Screen Negative (NEG=<50) 03/29/24 23:32 Reason For Visit: DECONDITIONING PHYSICAL, LEFT RIB PAIN Discharge Diagnosis All Active Problems (Updated 04/01/24 @ 10:22 by Maricarmen Mercedes) Constipation (Acute) Hypoglycemia (Acute) Hypomagnesemia (Acute) Hypokalemia (Acute) Generalized weakness (Acute) Chest pain (Acute) Acute pancreatitis (Acute) Gastritis (Acute) Gastroesophageal reflux disease (Acute) Gastritis (Acute) URTI (acute upper respiratory infection) (Acute) Nausea & vomiting (Acute) Neuralgia, post-herpetic (Acute) Physical deconditioning (Acute) Rib pain on left side (Acute) Restless leg (Acute) Edema (Acute) Essential hypertension (Acute) Adjustment disorder with mixed anxiety and depressed mood (Acute) Chronic kidney disease (CKD) (Acute) Insomnia (Chronic) Restless legs syndrome (Acute) Plan of Treatment: Continue with present treatment and follow up plan. Pt is to keep follow up appointment as instructed and take medications as ordered. Discharge Medications Discharge Medications: codeine Allergy (Unknown, Verified 03/04/24 16:16) Iodinated Contrast Media [IVP DYE] Allergy (Unknown, Verified 03/04/24 16:16) tetanus toxoid, adsorbed Allergy (Unknown, Verified 03/04/24 16:16) walnut Allergy (Unknown, Verified 03/04/24 16:16) iodine Allergy (Verified 03/04/24 16:16) shrimp Allergy (Verified 03/04/24 16:16) tetanus immune globulin Allergy (Verified 03/04/24 16:16) CONTINUE taking the following medications tramadol 50 mg tablet 50 mg PO BID PRN 03/29/24 [History] Discharge Plan Discharge Plan Hospital Course: Patient examined this morning, no acute events overnight. She is eating well today. She has had bowel movements. No further hypoglycemic episodes. She does have home health set up. She has been getting SSI here. Pt was discharged in stable condition. Continue SSI at home. Instructed to follow up with pcp in 1 week. Patient Disposition: HOME HEALTH SERVICE Condition: Stable Health Concerns: Post Hospitalization: new medications and changes needed to prevent readmission or further decline. Pt educated and given instructions on all concerns. Care Plan Goals: Problem: Pain/Alteration in Comfort Goal: Improve/ Resolve Pain; Achieve Pain Tolerance Instructions: Take pain medications as prescribed. Contact your primary care provider if your pain is unrelieved or worsens. Follow up with primary care provider as directed. Plan of Treatment: Continue with present treatment and follow up plan. Pt is to keep follow up appointment as instructed and take medications as ordered. Prescriptions: Continued metoprolol succinate 50 mg tablet extended release 24 hr 50 mg PO DAILY 30 Days Qty: 30 3RF ropinirole 0.5 mg tablet 0.5 mg PO QPM 30 Days Qty: 30 3RF Levemir FlexPen 100 unit/mL (3 mL) insulin pen 50 unit SUBCUT BID 30 Days Qty: 30 3RF insulin lispro [Humalog KwikPen Insulin] 100 unit/mL insulin pen 100 unit SUBCUT DIRECTED MDD 12u Qty: 15 3RF hydrochlorothiazide 25 mg tablet 25 mg PO DAILY Jardiance 25 mg tablet 25 mg PO DAILY pregabalin [Lyrica] 75 mg capsule 75 mg PO BID Qty: 20 0RF tramadol 50 mg Tablet 50 mg PO BID PRN Discontinued furosemide 20 mg tablet 20 mg PO DAILY 30 Days Qty: 30 3RF glipizide 10 mg tablet extended release 24hr 10 mg PO DAILY 30 Days Qty: 30 3RF omeprazole 40 mg capsule,delayed release(DR/EC) 40 mg PO QDAY 30 Days Qty: 30 3RF trazodone 100 mg tablet 100 mg PO HS 30 Days Qty: 30 3RF amitriptyline 25 mg tablet 25 mg PO QPM lorazepam 0.5 mg tablet 0.5 mg PO PRN PRN celecoxib 100 mg capsule 100 mg PO DAILY sertraline 50 mg tablet 50 mg PO QDAY ondansetron 4 mg tablet,disintegrating 4 mg PO Q8H MDD as directed PRN (Reason: nausea and vomiting) Qty: 14 0RF Follow ups/Referrals Follow ups/Referrals: Joshua Alanis [Primary Care Provider] - 04/08/24 3:20 pm Instructions Instructions: Fatigue, Weakness, [id number], Constipation, Adult Stand Alone Forms: Excuse From Work or School, [facility], Post Hospital Follow Up Care
== END 2024-04-02 10:10 | disposition home health service (06) ==
LOC: ER 19:52 → MED/SURG 19:52
PROVIDERS: ADMIT Family Medicine; ATTEND Family Medicine
DX: K21.9 Gastro-esophageal reflux disease without esophagitis; Z74.1 Need for assistance with personal care; R53.81 Other malaise; E87.6 Hypokalemia; Z79.4 Long term (current) use of insulin; R10.84 Generalized abdominal pain; E83.42 Hypomagnesemia; K59.09 Other constipation; F41.8 Other specified anxiety disorders; E11.649 Type 2 diabetes mellitus with hypoglycemia without coma; R44.2 Other hallucinations; R26.89 Other abnormalities of gait and mobility; G81.92 Hemiplegia, unspecified affecting left dominant side; R53.1 Weakness; N18.30 Chronic kidney disease, stage 3 unspecified; Z59.811 Housing instability, housed, with risk of homelessness; R07.81 Pleurodynia; E11.65 Type 2 diabetes mellitus with hyperglycemia